=== PATIENT | female | born 1945 | race Caucasian/White ===

== ENCOUNTER 2019-08-30 15:21 | Inpatient (IN) ==
--- NOTE | 2019-08-30 15:56 | Emergency Department Note ---
History of Present Illness General Chief complaint: Leg Injury/Pain Stated complaint: POSS BLOOD CLOTS, REF BY Time Seen by Provider: 08/30/19 15:28 History of Present Illness Maximum Pain Intensity: 8 This is a 74-year-old female presenting to the emergency department for evaluation of left calf pain and left inner thigh pain for the past few weeks. The patient has a history of peripheral arterial disease with stenting. She previously was on Plavix, but is no longer taking this medication as of 4 weeks ago. The patient states that she is having pain in her left calf and left thigh when she walks her dogs. The patient has not had abnormal coldness or pain into the foot. No chest pain, chest tightness, or shortness of breath. She believes that she may have a history of blood clots in the leg. She rates her current discomfort an 8/10. She did contact her PCPs office, who referred her to the ER for evaluation. Home Medications Home Medications Medication Instructions Recorded Confirmed Type cyanocobalamin (vitamin B-12) 1,000 mcg PO WK 07/02/18 08/30/19 History [Vitamin B-12] ergocalciferol (vitamin D2) 50,000 unit PO MONTHLY 07/02/18 08/30/19 History [Vitamin D2] levothyroxine [Synthroid] 88 mcg PO QAM 07/02/18 08/30/19 History lisinopril 5 mg tablet 5 mg PO DAILY #90 tab 03/03/19 08/30/19 Rx diphenoxylate-atropine 2.5 1 tab PO QID PRN #30 tab 04/21/19 08/30/19 Rx mg-0.025 mg tablet duloxetine 60 mg capsule,delayed 60 mg PO QAM #30 cap 06/10/19 08/30/19 Rx release gabapentin 800 mg tablet 800 mg PO TID #90 tab 06/15/19 08/30/19 Rx pramipexole 0.25 mg tablet 0.25 mg PO PM #30 tab 06/15/19 08/30/19 Rx hydrocodone 5 mg-acetaminophen 325 1 tab PO TID PRN #180 tab 06/22/19 08/30/19 Rx mg tablet estradiol [Estrace] 1 gm PV 2XWK 07/14/19 08/30/19 History famotidine [Pepcid] 20 mg PO BID 08/30/19 08/30/19 History Allergies Allergy/AdvReac Type Severity Reaction Status Date / Time Penicillins Allergy Hives Verified 08/30/19 17:46 Sulfa (Sulfonamide Allergy Hives Verified 08/30/19 17:46 Antibiotics) Past Med/Surg History Medical History Collagenous colitis (Chronic) Depression (Chronic) Diverticular disease (Chronic) GERD (gastroesophageal reflux disease) (Chronic) History of anesthesia complications (Chronic) History of blood clots (Resolved) ? FOUND IN LEFT 5TH TOE, NO KNOWN ETIOLOGY History of hepatitis B (Resolved) SINCE CLEARED, CONTRACTED AFTER A BLOOD TRANSFUSION S/P ECTOPIC History of hepatitis C (Resolved) SINCE CURED, RECEIVED 6 MONTHS OF HARVONI. CONTRACTED HEP C FROM BLOOD TRANSFUSION AT [facility] AFTER A ECTOPIC . Hyperlipidemia (Chronic) can not tolerate statins Hypertension (Chronic) Hypothyroidism (Chronic) Osteoarthritis of knee (Chronic) PAD (peripheral artery disease) (Chronic) angioplasty / stenting of left superficial femoral artery 2019 Raynauds disease (Chronic) Restless leg syndrome (Chronic) TAKES MIRAPEX Vitamin D deficiency (Chronic) Surgical History H/O hemorrhoidectomy History of arthroscopy right knee History of cataract surgery bilateral History of hysterectomy History of laparoscopy HISTORY OF ECTOPIC X2 History of tonsillectomy History of tonsillectomy Social History Preferred Language: Khmer Communication Ability: Effective Human Resources Benefits Coordinator Required: No Beliefs That Will Affect Care: None marital status: Current Living Situation: Spouse Feels Safe at Home: Yes Smoking Status: Former smoker Tobacco Type: cigarettes ; Second Hand Exposure: No ; Hx Alcohol Use: Yes Alcohol type: wine Hx Substance Use: No Review of Systems A total of 10 systems reviewed and were otherwise negative Physical Exam Vital Signs Vital Signs - 24 hr 08/30/19 15:23 08/30/19 17:22 Temperature 36.3 C L Temperature Source Oral Pulse Rate 78 Pulse Rate [Finger] 75 Pulse Rhythm [Finger] Regular Pulse Strength [Finger] Normal Respiratory Rate 18 16 Respiratory Effort / Characteristics Non-Labored Non-Labored Spontaneous Respiratory Depth Normal Normal Respiratory Pattern Regular Blood Pressure 157/91 H Blood Pressure [Right Arm] 152/105 H Blood Pressure Mean 113 Blood Pressure Mean [Right Arm] 120 Blood Pressure Position [Right Arm] Lying Pulse Oximetry 97 99 Oxygen Delivery Method Room Air Room Air Sepsis Recent Fever Within 48 Hours No Sepsis Action Taken by Nursing No Action Required VITALS: Vitals are noted on the nurse's note and reviewed by myself. Vital signs stable. GENERAL: Well-developed, well-nourished, white female, who is in no acute distress and resting comfortably. Patient is cooperative with the examination. HEAD: Normocephalic atraumatic. HEART: Regular rate and rhythm LUNGS: Clear to auscultation bilaterally without wheezes, rales or rhonchi. No retractions or accessory muscle use. ABDOMEN: Positive normal bowel sounds x 4. Soft, nontender, without masses or organomegaly. MUSCULOSKELETAL: No muscle atrophy, erythema, or edema noted. Full range of motion in all extremities. Mild reproducible palpation in the left calf and medial thigh. No hip tenderness. NEURO: Patient was alert and oriented to person place and time. CN II through XII grossly intact SKIN: The skin of the left foot is warm and nontender. Cap refill is 3.5 to 4 seconds to the most distal toes. Very faint Dorsalis pedis pulse identified. Posterior tibial not identified. Course Administered Medications Hydrocodone Bitart/Acetaminophen (Hemlock 5/325) 1 tab PO TID PRN PRN Reason: Pain Stop: 09/13/19 20:40 Last Admin: 08/30/19 20:47 Dose: 1 tab Documented by: [id number] Duloxetine HCl (Cymbalta) 60 mg PO [facility] Stop: 09/30/19 08:59 Last Admin: 08/31/19 09:01 Dose: 60 mg Documented by: [id number] Famotidine (Pepcid) 20 mg PO BID [facility] Stop: 09/29/19 20:59 Last Admin: 08/31/19 09:01 Dose: 20 mg Documented by: [id number] Admin: 08/30/19 21:17 Dose: 20 mg Documented by: [id number] Gabapentin (Neurontin) 600 mg PO BID [facility]; Protocol Stop: 09/29/19 20:59 Last Admin: 08/31/19 09:02 Dose: 600 mg Documented by: [id number] Admin: 12/30/19 21:15 Dose: 600 mg Documented by: [id number] Heparin Sodium/Dextrose (Heparin Sodium/Dextrose) 25,000 units in 500 mls @ 19 mls/hr IV .Q24H [facility]; Protocol Stop: 09/29/19 17:59 Last Titration: 08/31/19 07:11 Dose: 950 units/hr, 19 mls/hr Documented by: [id number] Cosigned by: [id number] Titration: 08/31/19 02:09 Dose: 950 units/hr, 19 mls/hr Documented by: [id number] Cosigned by: [id number] Titration: 08/30/19 22:58 Dose: 950 units/hr, 19 mls/hr Documented by: [id number] Cosigned by: [id number] Admin: 08/30/19 18:11 Dose: 950 units/hr, 19 mls/hr Documented by: [id number] Cosigned by: [id number] Levothyroxine Sodium (Synthroid) 88 mcg PO DAILYBB [facility] Stop: 09/30/19 06:29 Last Admin: 08/31/19 05:30 Dose: 88 mcg Documented by: [id number] Lisinopril (Zestril) 5 mg PO DAILY [facility] Stop: 09/30/19 08:59 Last Admin: 08/31/19 09:01 Dose: 5 mg Documented by: [id number] Miscellaneous (Order Awaiting Action) 1 ea N/A QS [facility] Stop: 09/30/19 00:00 Last Admin: 08/31/19 09:01 Dose: Not Given Documented by: [id number] Admin: 08/31/19 01:19 Dose: Not Given Documented by: [id number] Pramipexole Dihydrochloride (Mirapex) 0.25 mg PO PM [facility] Stop: 09/29/19 20:59 Last Admin: 08/30/19 21:16 Dose: 0.25 mg Documented by: [id number] Zolpidem Tartrate (Ambien) 5 mg PO HS PRN PRN Reason: Sleep Stop: 09/29/19 20:26 Last Admin: 08/30/19 22:33 Dose: 5 mg Documented by: [id number] Discontinued Medications Heparin Sodium (Porcine) (Heparin Iv Bolus) Confirm Administered Dose 10,000 units .ROUTE .STK-MED ONE Stop: 08/30/19 18:07 Last Admin: 08/30/19 18:12 Dose: 4,000 units Documented by: [id number] Cosigned by: [id number] Heparin Sodium/Dextrose () 1 ea IV NOW STA; Protocol Stop: 08/30/19 18:00 Last Admin: 08/30/19 18:12 Dose: Not Given Documented by: [id number] Critical Care Time I have personally spent greater than 60 minutes of critical care time in the direct management of this patient. This includes bedside care, interpretation of diagnostic studies, and testing, discussion with consultants, patient, and family members, and other required patient management activities. This 60 minutes is in excess of all separately billable procedures. Medical Decision Making Differential Diagnosis Differential diagnosis: tiologies such as DVT, vascular ischemia, radiculopathy, fracture, hematoma/contusion, myositis, abscess, septic arthritis cellulitis, joint effusion, trauma, lymphedema, idiopathic, CHF, as well as others were e ntertained. Laboratory Data Result diagrams: 08/31/19 06:04 08/31/19 06:04 Lab Results 08/30/19 08/30/19 08/30/19 Range/Units 17:05 17:05 17:05 WBC 9.06 (4.8-10.8) K/uL RBC 4.85 (4.2-5.4) M/uL Hgb 15.9 (12.0-16.0) g/dL Hct 45.9 (37-47) % MCV 94.6 (80-100) fL MCH 32.8 (25-34) pg MCHC 34.6 (32-36) g/dL RDW Std Deviation 46.5 H (36.4-46.3) fL RDW Coeff of Kyle 13.5 (11.5-14.5) % Plt Count 380 (130-400) K/uL MPV 9.7 (7.4-10.4) fL Immature Gran % (Auto) 0.3 % Neut % (Auto) 61.9 % Lymph % (Auto) 18.7 % Real % (Auto) 12.0 % Eos % (Auto) 6.5 % Baso % (Auto) 0.6 % Immature Gran # (Auto) 0.03 H (0.00-0.02) K/uL Neut # (Auto) 5.61 (1.4-6.5) K/uL Lymph # (Auto) 1.69 (1.2-3.4) K/uL Real # (Auto) 1.09 H (0.11-0.59) K/uL Eos # (Auto) 0.59 H (0-0.5) K/uL Baso # (Auto) 0.05 (0-0.2) K/uL PT 11.0 (9.0-12.0) Seconds INR 1.1 (0.9-1.1) APTT 29.6 (21.0-31.0) Seconds PTT Ratio 1.1 Sodium 138 (136-145) mmol/L Potassium 3.7 (3.5-5.1) mmol/L Chloride 106 (98-107) mmol/L Carbon Dioxide 23 (21-32) mmol/L Anion Gap 9.0 (3-11) BUN 13 (7-18) mg/dl Creatinine 1.11 (0.6-1.2) mg/dl Est Cr Clr Drug Dosing 34.1 ml/min Est GFR ( Amer) 55.9 Est GFR (Non-Af Amer) 48.2 BUN/Creatinine Ratio 11.4 (10-20) Glucose 83 (70-99) mg/dl Calcium 9.9 (8.5-10.1) mg/dl Total Bilirubin 0.4 (0.2-1) mg/dl AST 17 (15-37) U/L ALT 15 (12-78) U/L Alkaline Phosphatase 80 (45-117) U/L Troponin I < 0.015 (0-0.045) ng/ml Total Protein 7.3 (6.4-8.2) gm/dl Albumin 4.0 (3.4-5.0) gm/dl Globulin 3.3 (2.5-4.0) gm/dl Albumin/Globulin Ratio 1.2 (0.9-2) Imaging Data Radiologist's Impression: US venous doppler LE LT HISTORY: 74 years-old Female left leg calf and mid thigh pain acute pain and swelling of the left lower extremity COMPARISON: Duplex venous Doppler study 07/14/2019 TECHNIQUE: Multiple real-time sonographic images of the left lower extremity deep venous structures were obtained assessing grayscale appearance, color and spectral flow FINDINGS: Normal flow, compressibility, phasicity and augmentation of the left lower extremity deep venous structures. Stent of the superficial femoral artery is noted with occlusion of the entire imaged superficial femoral artery. IMPRESSION: 1. No sonographic evidence of deep venous thrombosis. 2. Incidental note is made of an occluded stent of the left superficial femoral artery. MDM Narrative Physical exam and history were performed. Nursing notes, EMR, and Medication List were personally reviewed. Patient appears to have increasing pain in her left leg. Her symptoms seem to be worse with certain movement such as walking her dog. She does have a history of peripheral arterial disease and stent in this leg. On exam her foot is warm and well pulses are weak do seem to be intact. Her capillary refill is slow in the left foot, but is existent. She does not appear with acute ischemic limb on exam. Because of her symptoms ultrasound was performed. Ultrasound was reviewed by myself and radiology, and does not show evidence of DVT. There is occlusion of her superficial femoral artery stent. This certainly could be contributing to her symptoms. The case was discussed with my attending physician, Dr. Rodriguez, who also independently evaluated the patient. At this time we do not have access to interventional cardiology or vascular surgery, and the case was discussed with [facility] in [place], Dr Baltazar, who agrees the patient does not need emergent revascularization based on her symptoms. She is recommended for medical treatment. I did discuss this with the patient, and while I was on the phone with [facility], a personal friend of the patient did arrive. This gentleman is a physician with the [facility] service and is personal friend of Dr. Oliveira, local vascular specialist. Dr. Oliveira is not officially electrical electronics engineers today, however he was kind enough to speak with us through the mutual friend. Dr. Oliveira will be back in town in a few days, and also agrees with medical treatment, and is more than happy to follow upon his return home. Overall the patient does not seem well for discharge home. Her symptoms appear most consistent with claudication, likely from an occluded stent. Her symptoms have been ongoing for at least 5 days, and while her leg does not appear acutely ischemic, it certainly could become so without appropriate intervention. The patient was started on heparin drip here in the department. The case was discussed with the on-call hospitalist team, who agreed to evaluate the patient here in the ER. Please see their dictation for further patient course, plan, and disposition. The chart was completed utilizing Dragon Speech Voice Recognition Software. Grammatical errors, random word insertions, pronoun errors, and incomplete sentences are an occasional consequence of this system due to software limitations, ambient noise, and hardware issues. Any formal questions or concer ns about the content, text, or information contained within the body of this dictation should be directly addressed to the provider for clarification. . Impression & Plan Occlusion of stent of peripheral artery, Left leg pain Discharge Plan Visit Data *Final* Discharge Date/Time: 08/30/19 20:07 Chief Complaint: Leg Injury/Pain Stated Complaint: POSS BLOOD CLOTS, REF BY DR ED Provider: Jaquan Rodriguez ED Midlevel Provider: Olaf Verduzco Discharge Problem: Occlusion of stent of peripheral artery, Left leg pain Patient Disposition: Admitted As Inpatient Discharge Instructions Interventions: ED Discharge Assessment Last Done: 08/30/19 20:07 Discharge Problem: Occlusion of stent of peripheral artery Qualifiers: Encounter type: initial encounter Qualified Code(s): T82.856A - Stenosis of peripheral vascular stent, initial encounter
--- NOTE | 2019-08-30 16:14 | Ultrasound Report ---
US venous doppler LE LT HISTORY: 74 years-old Female left leg calf and mid thigh pain acute pain and swelling of the left lo wer extremity COMPARISON: Duplex venous Doppler study 07/14/2019 TECHNIQUE: Multiple real-time sonographic images of the left lower extremity deep venous structures w ere obtained assessing grayscale appearance, color and spectral flow FINDINGS: Normal flow, compressibility, phasicity and augmentation of the left lower extremity deep venous stru ctures. Stent of the superficial femoral artery is noted with occlusion of the entire imaged superficial femo ral artery. IMPRESSION: 1. No sonographic evidence of deep venous thrombosis. 2. Incidental note is made of an occluded stent of the left superficial femoral artery. ACT 112: Negative or not required by law. The above report was generated using voice recognition software. It may contain grammatical, syntax o r spelling errors. Electronically signed by: Mayank Barrera M.D. 08/30/2019 4:13 PM
--- NOTE | 2019-08-30 16:50 | Emergency Department Note ---
ED Visit Note This Patient was discussed with the physician miller head assistant wet process, Olaf Verduzco PA-C. The pertinent historical and physical exam findings were confirmed. I agree with the studies ordered and with the interpretations of these studies. I agree with the disposition and care plan. .
[2019-08-30 17:24] LABS: Basophils # (auto) 0.05 K/uL (0-0.2); Basophils % (auto) 0.6 %; Eosinophils # (auto) 0.59 K/uL (0-0.5); Eosinophils % (auto) 6.5 %; Hematocrit (blood only) 45.9 % (37-47); Hemoglobin 15.9 g/dL (12.0-16.0); Immature Granulocytes # (auto) 0.03 K/uL (0.00-0.02); Immature Granulocytes % (auto) 0.3 %; Lymphocytes # (auto) 1.69 K/uL (1.2-3.4); Lymphocytes % (auto) 18.7 %; Mean Corpuscular Hemoglobin 32.8 pg (25-34); Mean Corpuscular Hgb Conc 34.6 g/dL (32-36); Mean Corpuscular Volume 94.6 fL (80-100); Mean Platelet Volume 9.7 fL (7.4-10.4); Monocytes # (auto) 1.09 K/uL (0.11-0.59); Neutrophils # (auto) 5.61 K/uL (1.4-6.5); Neutrophils % (auto) 61.9 %; Platelet Count 380 K/uL (130-400); RDW Coefficient of Variation 13.5 % (11.5-14.5); RDW Standard Deviation 46.5 fL (36.4-46.3); Red Blood Count 4.85 M/uL (4.2-5.4); White Blood Count 9.06 K/uL (4.8-10.8)
[2019-08-30 17:35] LABS: INR 1.1 (0.9-1.1); Partial Thromboplastin Ratio 1.1; Partial Thromboplastin Time 29.6 Seconds (21.0-31.0)
[2019-08-30 17:42] LABS: Alanine Aminotransferase 15 U/L (12-78); Aspartate Aminotransferase 17 U/L (15-37); BUN Creatinine Ratio 11.4 (10-20); Blood Urea Nitrogen 13 mg/dl (7-18); Calcium 9.9 mg/dl (8.5-10.1); Carbon Dioxide 23 mmol/L (21-32); Chloride 106 mmol/L (98-107); Creatinine Clr Calc Pharmacy 34.1 ml/min; Est GFR (African American) 55.9; Est GFR (Non-African American) 48.2; Glucose 83 mg/dl (70-99); Potassium 3.7 mmol/L (3.5-5.1); Sodium 138 mmol/L (136-145)
[2019-08-30 17:47] LABS: Albumin Globulin Ratio 1.2 (0.9-2); Alkaline Phosphatase 80 U/L (45-117); Bilirubin,Total 0.4 mg/dl (0.2-1); Globulin 3.3 gm/dl (2.5-4.0); Total Protein 7.3 gm/dl (6.4-8.2); Troponin I < 0.015 ng/ml (0-0.045)
[2019-08-30] MEDS ORDERED: HEPARIN SOD (PORCINE) 1000 UNIT/ML 10 ML VIAL ONE (18:06)
[2019-08-30] MEDS: HEPARIN SODIUM/DEXTROSE 25,000 UNITS/500 ML BAG IV SCH (18:11)
--- NOTE | 2019-08-30 19:04 | History & Physical Report ---
Date of Service August 30, 2019 Assessment & Plan (1) PAD (peripheral artery disease): Patient with peripheral arterial disease status post stent placement in the SFA 09/09/2018, previously on Plavix which was discontinued earlier this month. She presents today with stent occlusion. Mild pain in left groin. Left lower extremity is warm with weakly palpable pulses and adequate capillary refill. Admit to medical floor Check pulses, perfusion, warmth every 4 hours. No need for urgent intervention at this time -Check arterial Doppler Heparin drip. Consider initiating rivaroxaban tomorrow. Patient can most likely be managed medically with outpatient referral to Dr. Maynard or Dr. Oliveira for thrombectomy Hydrocodone as needed for pain Present on Admission?: Yes (2) Collagenous colitis: Patient with history of collagenous colitis as well as diverticular disease. She is scheduled to have partial colectomy performed later this month. Symptoms presently well managed Continue diphenoxylateatropine as needed Present on Admission?: Yes (3) Depression: Patient appears anxious on exam. Otherwise, stable mood and affect Continue duloxetine 60 mg p.o. every morning Present on Admission?: Yes (4) Hypothyroidism: Chronic. TSH = 1.43 on 06/22/2019 Continue Synthroid 88 mcg p.o. daily Present on Admission?: Yes (5) Vitamin D deficiency: Chronic. Patient may resume outpatient vitamin D supplementation on discharge Present on Admission?: Yes (6) Hyperlipidemia: Chronic. Stable. Patient is statin intolerant Continue to monitor Present on Admission?: Yes (7) Hypertension: Blood pressure mildly elevated at 152/105. Pain control as above Continue Lisinopril 5 mg p.o. daily Continue to monitor Present on Admission?: Yes (8) Restless leg syndrome: Chronic. Stable. Continue Mirapex 0.25 mg p.o. every afternoon Present on Admission?: Yes (9) GERD (gastroesophageal reflux disease): Chronic. Stable. Continue Pepcid 20 mg p.o. twice daily F/E/N -Hep-Lock. Monitor electrolytes and replete as needed. Heart healthy diet as tolerated ProphylaxisHeparin drip as above Codefull per discussion with patient Dispositionadmit to medical floor Present on Admission?: Yes History of Present Illness Chief Complaint: Left lower extremity pain Primary Care Provider: MD Sadia Gardner is a pleasant 74yo C female with history of HTN/HLP, PAD. Patient s/p LLE angiogram with mechanical atherectomy and percutaneous transluminal angioplasty and stenting of the left SFA with two overlapping Tigris stents performed by Dr. Maynard on 09/09/2018. She was instructed to take Plavix for approximately 1 year. Patient recently discontinued her Plavix after checking with Dr. Maynard' office. She reports cramping and pain in her left calf occurring with ambulation and relieved by rest ongoing for at least the last month. She had a venous Doppler study performed of the left lower extremity on 07/14/2018 which showed no evidence of DVT. Patient's left lower extremity pain became more frequent and more severe. Approximately 5 days ago she developed severe left groin pain with both movement and at rest. Her pain is ongoing, mild in severity at present. She denies additional complaints such as fever/chills/chest pain/palpitations/shortness of breath/nausea/vomiting/abdominal pain. ER course: Heparin drip Allergies Allergy/AdvReac Type Severity Reaction Status Date / Time Penicillins Allergy Hives Verified 08/30/19 17:46 Sulfa (Sulfonamide Allergy Hives Verified 08/30/19 17:46 Antibiotics) Home Medications Home Medications Medication Instructions Recorded Confirmed Type cyanocobalamin (vitamin B-12) 1,000 mcg PO WK 07/02/18 08/30/19 History [Vitamin B-12] ergocalciferol (vitamin D2) 50,000 unit PO MONTHLY 07/02/18 08/30/19 History [Vitamin D2] levothyroxine [Synthroid] 88 mcg PO QAM 07/02/18 08/30/19 History lisinopril 5 mg tablet 5 mg PO DAILY #90 tab 03/03/19 08/30/19 Rx diphenoxylate-atropine 2.5 1 tab PO QID PRN #30 tab 04/21/19 08/30/19 Rx mg-0.025 mg tablet duloxetine 60 mg capsule,delayed 60 mg PO QAM #30 cap 06/10/19 08/30/19 Rx release gabapentin 800 mg tablet 800 mg PO TID #90 tab 06/15/19 08/30/19 Rx pramipexole 0.25 mg tablet 0.25 mg PO PM #30 tab 06/15/19 08/30/19 Rx hydrocodone 5 mg-acetaminophen 325 1 tab PO TID PRN #180 tab 06/22/19 08/30/19 Rx mg tablet estradiol [Estrace] 1 gm PV 2XWK 07/14/19 08/30/19 History famotidine [Pepcid] 20 mg PO BID 08/30/19 08/30/19 History Past Med/Surg History Medical History Collagenous colitis (Chronic) Depression (Chronic) Diverticular disease (Chronic) GERD (gastroesophageal reflux disease) (Chronic) History of anesthesia complications (Chronic) History of blood clots (Resolved) ? FOUND IN LEFT 5TH TOE, NO KNOWN ETIOLOGY History of hepatitis B (Resolved) SINCE CLEARED, CONTRACTED AFTER A BLOOD TRANSFUSION S/P ECTOPIC History of hepatitis C (Resolved) SINCE CURED, RECEIVED 6 MONTHS OF HARVONI. CONTRACTED HEP C FROM BLOOD TRANSFUSION AT [facility] AFTER A ECTOPIC . Hyperlipidemia (Chronic) can not tolerate statins Hypertension (Chronic) Hypothyroidism (Chronic) Osteoarthritis of knee (Chronic) PAD (peripheral artery disease) (Chronic) angioplasty / stenting of left superficial femoral artery 2019 Raynauds disease (Chronic) Restless leg syndrome (Chronic) TAKES MIRAPEX Vitamin D deficiency (Chronic) Surgical History H/O hemorrhoidectomy History of arthroscopy right knee History of cataract surgery bilateral History of hysterectomy History of laparoscopy HISTORY OF ECTOPIC X2 History of tonsillectomy History of tonsillectomy Social History Preferred Language: Nigerian Communication Ability: Effective Leasing Representative Required: No Beliefs That Will Affect Care: None marital status: Current Living Situation: Spouse Other Information That Helps Us Care for You: No Feels Safe at Home: Yes Safety Concerns: Feels Safe At This Time Smoking Status: Former smoker Tobacco Type: cigarettes ; Second Hand Exposure: No ; Hx Alcohol Use: Yes Alcohol type: wine Hx Substance Use: No Review of Systems Review of Systems: All systems reviewed & are unremarkable except as noted in HPI & below Physical Exam Physical Exam: General: patient resting comfortably, NAD, non-toxic in appearance, AA&O x 4, anxious in appearance Skin: warm, dry, intact, no rashes or lesions HEENT: NC/AT, PERRL, EOMI, anicteric sclera, conjunctiva without injection, external ear normal to inspection and nontender, nares patent, moist mucus membranes, dentition intact, no oropharyngeal lesions, neck supple, trachea midline, no LAD, no thyromegaly, no JVD Heart: +S1/S2, regular, no m/r/g Lungs: equal air entry bilaterally, no rales/rhonchi/wheezes Abd: +BS, soft, NT/ND, no masses/organomegaly/ascites Ext: warm, 2+ pulses in right lower extremity and bilateral upper extremities, left lower extremity is warm, 1+ dorsalis pedis and posterior tibial pulse, nontender to palpation, no clubbing/cyanosis/edema, + pain with palpation of left SFA Neuro: nonfocal, patient AA&O x 4, speech intact, no facial droop, moving all extremities on command with equal strength 5/5 Results & Data Vital Signs (Past 12 Hours) Vital Signs Temp Pulse Pulse Resp BP BP Pulse Ox 08/30/19 17:22 75 16 152/105 H 99 08/30/19 15:23 36.3 C L 78 18 157/91 H 97 Laboratory Results Lab Results 08/30/19 08/30/19 08/30/19 Range/Units 17:05 17:05 17:05 WBC 9.06 (4.8-10.8) K/uL RBC 4.85 (4.2-5.4) M/uL Hgb 15.9 (12.0-16.0) g/dL Hct 45.9 (37-47) % MCV 94.6 (80-100) fL MCH 32.8 (25-34) pg MCHC 34.6 (32-36) g/dL RDW Std Deviation 46.5 H (36.4-46.3) fL RDW Coeff of Kyle 13.5 (11.5-14.5) % Plt Count 380 (130-400) K/uL MPV 9.7 (7.4-10.4) fL Immature Gran % (Auto) 0.3 % Neut % (Auto) 61.9 % Lymph % (Auto) 18.7 % [place] % (Auto) 12.0 % Eos % (Auto) 6.5 % Baso % (Auto) 0.6 % Immature Gran # (Auto) 0.03 H (0.00-0.02) K/uL Neut # (Auto) 5.61 (1.4-6.5) K/uL Lymph # (Auto) 1.69 (1.2-3.4) K/uL [place] # (Auto) 1.09 H (0.11-0.59) K/uL Eos # (Auto) 0.59 H (0-0.5) K/uL Baso # (Auto) 0.05 (0-0.2) K/uL PT 11.0 (9.0-12.0) Seconds INR 1.1 (0.9-1.1) APTT 29.6 (21.0-31.0) Seconds PTT Ratio 1.1 Sodium 138 (136-145) mmol/L Potassium 3.7 (3.5-5.1) mmol/L Chloride 106 (98-107) mmol/L Carbon Dioxide 23 (21-32) mmol/L Anion Gap 9.0 (3-11) BUN 13 (7-18) mg/dl Creatinine 1.11 (0.6-1.2) mg/dl Est Cr Clr Drug Dosing 34.1 ml/min Est GFR ( Amer) 55.9 Est GFR (Non-Af Amer) 48.2 BUN/Creatinine Ratio 11.4 (10-20) Glucose 83 (70-99) mg/dl Calcium 9.9 (8.5-10.1) mg/dl Total Bilirubin 0.4 (0.2-1) mg/dl AST 17 (15-37) U/L ALT 15 (12-78) U/L Alkaline Phosphatase 80 (45-117) U/L Troponin I < 0.015 (0-0.045) ng/ml Total Protein 7.3 (6.4-8.2) gm/dl Albumin 4.0 (3.4-5.0) gm/dl Globulin 3.3 (2.5-4.0) gm/dl Albumin/Globulin Ratio 1.2 (0.9-2) Diagnostic Findings US venous doppler LE LT HISTORY: 74 years-old Female left leg calf and mid thigh pain acute pain and swelling of the left lower extremity COMPARISON: Duplex venous Doppler study 07/14/2019 TECHNIQUE: Multiple real-time sonographic images of the left lower extremity deep venous structures were obtained assessing grayscale appearance, color and spectral flow FINDINGS: Normal flow, compressibility, phasicity and augmentation of the left lower extremity deep venous structures. Stent of the superficial femoral artery is noted with occlusion of the entire imaged superficial femoral artery. IMPRESSION: 1. No sonographic evidence of deep venous thrombosis. 2. Incidental note is made of an occluded stent of the left superficial femoral artery. ACT 112: Negative or not required by law. The above report was generated using voice recognition software. It may contain grammatical, syntax or spelling errors. Electronically signed by: Mayank Barrera M.D. 08/30/2019 4:13 PM Dictated: 08/30/191609 Transcribed: 08/30/191609 Operation Date: 09/09/18 10:20 Pre-Op Diagnosis: Peripheral Artery Disease Post-Op Diagnosis: Peripheral Artery Disease Procedure Operation Date: 09/09/18 10:20 Actual Procedures p Left Lower Extremity Angiogram, Percutaneous Transluminal Angioplasty and Stenting of Left Superficial Femoral Artery, Mechanical Atherectomy Left Superficial Femoral Artery, Moderate Concious Sedation 1123 to 1316.(Right) - Travis Maynard MD Surgeon Blaine Maynard MD Rn Delivery Lexi Estimated Blood Loss 20 Findings Consistent with Post-Op Diagnosis Left lower extremity: Aorta, iliacs, common femoral artery largely free of disease. Long SFA occlusion beginning at ostium with reconstitution from profunda collaterals in the distal segment. ANESTHESIOLOGIST PHYSICIAN widely patent and dominant runoff vessel to the foot. STEPHEN occluded proximally with distal reconstitution. Peroneal occluded. Specimens None Drains None Complications none Disposition Disposition: Recovery Room Description of Procedure Right common femoral access obtained via ultrasound guidance, short 5Fr sheath placed LLE angiogram performed with RIM catheter Up an over with RIM catheter and glide advantage wire 7 Fr 45 cm destination sheath placed to common femoral artery Short stump at ostial SFA crossed with a glide advantage wire and angled glide catheter. Distal intraluminal position confirmed via injection through glide catheter in popliteal artery. 0.14 bare wire exchanged and navigated into ANESTHESIOLOGIST PHYSICIAN Distal protection with Rojelio 6 Filter SFA dilated with 4.0 balloon SFA treated with [employer] atherectomy device (XC 2.1/3.0), 1 run by down, one run lights up. SFA dilated with 6.0 balloon prolonged inflations Ostium of SFA stented with 6.0 by 100 mm Tigris stent 6.0 x 16 mm Tigris stent placed to mid SFA overlapping distal aspect of initial stent Stents postdilated with 6.0 balloon Post procedure good angiographic result, no evidence of dissection and good 3 vessel run-off. Contrast used: 140 Access closure:StarClose Summary: 1. Left lower extremity--long SFA occlusion with reconstitution in the distal SFA and single-vessel runoff to the foot via widely patent ANESTHESIOLOGIST PHYSICIAN. 2. Successful ANESTHESIOLOGIST PHYSICIAN/atherectomy of SFA occlusion with 2 overlapping Tigris stents placed from ostium to mid segment. Recommendations: Continue DAPT with ASA/Clopidogrel for at least next 3 months. Will consider long-term rivaroxaban Continue ASCVD risk factor modification Follow-up ultrasound in 1 month. I attest to the content of the Intraoperative Record and any orders documented therein. Any exceptions are noted below. Signed By:<Electronically signed by Travis Maynard MD>09/09/18 1731 Created: 09/09/18 1716 ECG Additional Comments: The study reveals NSR at 71bpm, normal axis, no acute ischemic changes Code Status & VTE Plan Code Status FULL VTE Prophylaxis Plan VTE Prophylaxis will be ordered: Yes PG Care Time/CCT Total # of Minutes Spent Total Time Spent with Patient: Total time spent is greater than 50% in coordination of care (as documented) at patient's floor/unit and/or counseling patient: (1) Depression Depression Type: major depressive disorder Major depression recurrence: recurrent Active/Remission status: remission status unspecified Qualified Code(s): F33.9 - Major depressive disorder, recurrent, unspecified (2) Hypothyroidism Hypothyroidism type: unspecified Qualified Code(s): E03.9 - Hypothyroidism, unspecified (3) Hyperlipidemia Hyperlipidemia type: unspecified Qualified Code(s): E78.5 - Hyperlipidemia, unspecified (4) Hypertension Hypertension type: essential hypertension Qualified Code(s): I10 - Essential (primary) hypertension (5) GERD (gastroesophageal reflux disease) Esophagitis presence: esophagitis presence not specified Qualified Code(s): K21.9 - Gastro-esophageal reflux disease without esophagitis
[2019-08-30] MEDS ORDERED: DIPHENOXYLATE/ATROPINE 2.5/0.025MG TAB PO PRN (20:27)
[2019-08-30] MEDS: HYDROCODONE/ACETAMOPHEN 5/325MG TAB PO PRN (20:47)
[2019-08-30] MEDS: GABAPENTIN 600 MG TAB PO SCH (21:15)
[2019-08-30] MEDS: PRAMIPEXOLE DIHYDROCHLO 0.25 MG TAB PO SCH (21:16)
[2019-08-30] MEDS: FAMOTIDINE 20 MG TAB PO SCH (21:17)
[2019-08-30] MEDS: ZOLPIDEM TARTRATE 5 MG TAB PO PRN (22:33)
[2019-08-31 00:58] LABS: Partial Thromboplastin Ratio 2.4
[2019-08-31 01:00] LABS: Partial Thromboplastin Time 65.2 Seconds (21.0-31.0)
[2019-08-31] MEDS: LEVOTHYROXINE SODIUM 88 MCG TABLET PO SCH (05:30)
[2019-08-31 06:17] LABS: Basophils # (auto) 0.04 K/uL (0-0.2); Basophils % (auto) 0.4 %; Eosinophils # (auto) 0.76 K/uL (0-0.5); Eosinophils % (auto) 7.5 %; Hematocrit (blood only) 43.3 % (37-47); Hemoglobin 14.5 g/dL (12.0-16.0); Immature Granulocytes # (auto) 0.04 K/uL (0.00-0.02); Immature Granulocytes % (auto) 0.4 %; Lymphocytes # (auto) 1.59 K/uL (1.2-3.4); Lymphocytes % (auto) 15.8 %; Mean Corpuscular Hemoglobin 32.2 pg (25-34); Mean Corpuscular Hgb Conc 33.5 g/dL (32-36); Mean Platelet Volume 9.7 fL (7.4-10.4); Monocytes # (auto) 0.96 K/uL (0.11-0.59); Monocytes % (auto) 9.5 %; Neutrophils # (auto) 6.68 K/uL (1.4-6.5); Neutrophils % (auto) 66.4 %; Platelet Count 311 K/uL (130-400); RDW Coefficient of Variation 13.7 % (11.5-14.5); RDW Standard Deviation 48.3 fL (36.4-46.3); Red Blood Count 4.51 M/uL (4.2-5.4); White Blood Count 10.07 K/uL (4.8-10.8)
[2019-08-31 06:33] LABS: Partial Thromboplastin Ratio 2.3
[2019-08-31 06:55] LABS: BUN Creatinine Ratio 13.3 (10-20); Creatinine Clr Calc Pharmacy 37.1 ml/min; Est GFR (African American) 61.9; Est GFR (Non-African American) 53.4; Potassium 3.9 mmol/L (3.5-5.1)
[2019-08-31 06:56] LABS: Partial Thromboplastin Time 62.6 Seconds (21.0-31.0)
[2019-08-31] MEDS: DULOXETINE HCL 60 MG CAP PO SCH (09:01)
[2019-08-31] MEDS: lisinopriL 5 MG TAB PO SCH (09:01)
[2019-08-31] MEDS: FAMOTIDINE 20 MG TAB PO SCH ×2 (09:01→20:05)
[2019-08-31] MEDS: GABAPENTIN 600 MG TAB PO SCH ×2 (09:02→20:04)
--- NOTE | 2019-08-31 16:31 | Hospitalist Progress Note ---
Date of Service August 31, 2019 Assessment & Plan (1) PAD (peripheral artery disease): * Patient with peripheral arterial disease status post stent placement in the SFA 09/09/2018, previously on Plavix which was discontinued earlier this month. She presented on 08/30 with stent occlusion. Mild pain in left groin. Left lower extremity is warm with weakly palpable pulses, but adequate capillary refill. * Q4 pulse checks * US Venous Doppler with occluded stent of LEFT SFA * Continue heparin gtt -- will hold off on switching to revaroxaban for now, for possible surgical intervention * Consult Dr. Maynard in AM -- patient known to him, stent placed Sep 2018 -- appreciate input * Likely will need continued plavix in addition to NOAC at discharge (2) Collagenous colitis: * Stable * Patient with history of collagenous colitis as well as diverticular disease. She is scheduled to have partial colectomy performed later this month with Dr. Nick. * Continue diphenoxylateatropine as needed (3) Depression: * Increased anxiety/depression regarding health ever since move to [place] from [place]. Denies any worsening of symptoms currently. States she has one episode of clinically relevant depression in the past * Continue home duloxetine 60mg (4) Hypothyroidism: * Chronic. Stable. TSH = 1.43 on 06/22/2019 * Continue Synthroid 88 mcg p.o. daily (5) Vitamin D deficiency: * Chronic. * Patient may resume outpatient vitamin D supplementation on discharge (6) Hyperlipidemia: * Chronic. Stable. Patient is statin intolerant (7) Hypertension: * Blood pressures stable, 115/66 currently. Mildly elevated at 152/105 on admission -- likely component of pain * Continue lisinopril 5mg * Continue to monitor (8) Restless leg syndrome: * Chronic. Stable. * Continue Mirapex 0.25 mg p.o. every afternoon (9) GERD (gastroesophageal reflux disease): * Chronic. Stable. * Continue Pepcid 20 mg p.o. twice daily Dispo: Dr. Maynard consult in AM -- inpatient vs outpatient intervention Supervising Physician Co-Signing Physician Notes Attending Attestation - Chart reviewed in detail, care plan d/w ARNOLDO Cornell. I agree w/ the flores components of her documentation. Patient with occluded left-sided femoral stent seen on venous doppler of left leg. Presented with left leg pains thought due to PAD. Placed on heparin infusion. Pain improved, pulses present on examination by Ms Cornell's report. Consider dedicated arterial duplex studies. Agree w/ consult with Dr Maynard. Ultimately if pain is not felt to be vascular in origin consider lumbar spine MRI, x-rays of left leg, etc. Last Quach MD Subjective Left leg/calf pain improved today. Patient states they were unable to find a pulse when she arrived on admission, and her pain was severe and worsening ever since she discontinued her plavix on August 05. She states she had a stent pl aced by Dr. Maynard September 2018 and had completed her one year of plavix earlier this month. She states it originally started in her toe/calf and over the past five days she had worsening pain in her left groin. She was told initially she might have to be transferred due to lack of vascular capabilities at this facilty, but is glad she stayed and her pain has improved. She states she is to have a partial colectomy later in September for her collagenous colitis by Dr. Nick. She denies recent travel, fever, chills, chest pain, palpitations, shortness of breath, abdominal pain, n/v/d at this time. Review of Systems Review of Systems: All systems reviewed & are unremarkable except as noted in HPI & below Physical Exam Constitutional: WD/WN, vitals as above no acute distress Eyes: + anicteric sclerae and PERRL Neck: trachea midline, no thyromegaly Respiratory: normal respiratory effort, lungs clear to auscultation Cardiovascular: RRR, no murmur, no edema 2+ pulses RLE 1+ dp/pt pulse Nontender to palpation Gastrointestinal (Abdomen): normal bowel sounds, soft, nontender, no hepatosplenomegaly Musculoskeletal: no cyanosis or clubbing, extremities motor strength 5/5 Skin: no rashes, warm and dry Neurologic: PERRL, EOMI, accommodation nl, no face palsy, no dysarthria Psychiatric: A+Ox3, euthymic affect Results & Data Vital Signs (Past 12 Hours) Vital Signs Temp Pulse Resp BP Pulse Ox 08/31/19 14:55 36.8 C 88 18 115/66 92 08/31/19 07:05 37.1 C 87 14 118/69 92 Laboratory Results 08/31/19 08/31/19 08/31/19 Range/Units 06:04 06:04 06:04 WBC (4.8-10.8) K/uL RBC (4.2-5.4) M/uL Hgb (12.0-16.0) g/dL Hct (37-47) % MCV (80-100) fL MCH (25-34) pg MCHC (32-36) g/dL RDW Std Deviation (36.4-46.3) fL RDW Coeff of Kyle (11.5-14.5) % Plt Count (130-400) K/uL MPV (7.4-10.4) fL Immature Gran % (Auto) % Neut % (Auto) % Lymph % (Auto) % [place] % (Auto) % Eos % (Auto) % Baso % (Auto) % Immature Gran # (Auto) (0.00-0.02) K/uL Neut # (Auto) (1.4-6.5) K/uL Lymph # (Auto) (1.2-3.4) K/uL [place] # (Auto) (0.11-0.59) K/uL Eos # (Auto) (0-0.5) K/uL Baso # (Auto) (0-0.2) K/uL PT (9.0-12.0) Seconds INR (0.9-1.1) APTT 62.6 H* (21.0-31.0) Seconds PTT Ratio 2.3 Sodium 138 (136-145) mmol/L Potassium 3.9 (3.5-5.1) mmol/L Chloride 108 H (98-107) mmol/L Carbon Dioxide 25 (21-32) mmol/L Anion Gap 5.0 (3-11) BUN 14 (7-18) mg/dl Creatinine 1.02 (0.6-1.2) mg/dl Est Cr Clr Drug Dosing 37.1 ml/min Est GFR ( Amer) 61.9 Est GFR (Non-Af Amer) 53.4 BUN/Creatinine Ratio 13.3 (10-20) Glucose 96 (70-99) mg/dl Lactate 0.9 (0.4-2.0) mmol/L Calcium 9.0 (8.5-10.1) mg/dl Total Bilirubin (0.2-1) mg/dl AST (15-37) U/L ALT (12-78) U/L Alkaline Phosphatase (45-117) U/L Troponin I (0-0.045) ng/ml Total Protein (6.4-8.2) gm/dl Albumin (3.4-5.0) gm/dl Globulin (2.5-4.0) gm/dl Albumin/Globulin Ratio (0.9-2) 08/31/19 08/31/19 08/30/19 Range/Units 06:04 00:22 17:05 WBC 10.07 (4.8-10.8) K/uL RBC 4.51 (4.2-5.4) M/uL Hgb 14.5 (12.0-16.0) g/dL Hct 43.3 (37-47) % MCV 96.0 (80-100) fL MCH 32.2 (25-34) pg MCHC 33.5 (32-36) g/dL RDW Std Deviation 48.3 H (36.4-46.3) fL RDW Coeff of Kyle 13.7 (11.5-14.5) % Plt Count 311 (130-400) K/uL MPV 9.7 (7.4-10.4) fL Immature Gran % (Auto) 0.4 % Neut % (Auto) 66.4 % Lymph % (Auto) 15.8 % [place] % (Auto) 9.5 % Eos % (Auto) 7.5 % Baso % (Auto) 0.4 % Immature Gran # (Auto) 0.04 H (0.00-0.02) K/uL Neut # (Auto) 6.68 H (1.4-6.5) K/uL Lymph # (Auto) 1.59 (1.2-3.4) K/uL [place] # (Auto) 0.96 H (0.11-0.59) K/uL Eos # (Auto) 0.76 H (0-0.5) K/uL Baso # (Auto) 0.04 (0-0.2) K/uL PT (9.0-12.0) Seconds INR (0.9-1.1) APTT 65.2 H* (21.0-31.0) Seconds PTT Ratio 2.4 Sodium 138 (136-145) mmol/L Potassium 3.7 (3.5-5.1) mmol/L Chloride 106 (98-107) mmol/L Carbon Dioxide 23 (21-32) mmol/L Anion Gap 9.0 (3-11) BUN 13 (7-18) mg/dl Creatinine 1.11 (0.6-1.2) mg/dl Est Cr Clr Drug Dosing 34.1 ml/min Est GFR ( Amer) 55.9 Est GFR (Non-Af Amer) 48.2 BUN/Creatinine Ratio 11.4 (10-20) Glucose 83 (70-99) mg/dl Lactate (0.4-2.0) mmol/L Calcium 9.9 (8.5-10.1) mg/dl Total Bilirubin 0.4 (0.2-1) mg/dl AST 17 (15-37) U/L ALT 15 (12-78) U/L Alkaline Phosphatase 80 (45-117) U/L Troponin I < 0.015 (0-0.045) ng/ml Total Protein 7.3 (6.4-8.2) gm/dl Albumin 4.0 (3.4-5.0) gm/dl Globulin 3.3 (2.5-4.0) gm/dl Albumin/Globulin Ratio 1.2 (0.9-2) 08/30/19 08/30/19 Range/Units 17:05 17:05 WBC 9.06 (4.8-10.8) K/uL RBC 4.85 (4.2-5.4) M/uL Hgb 15.9 (12.0-16.0) g/dL Hct 45.9 (37-47) % MCV 94.6 (80-100) fL MCH 32.8 (25-34) pg MCHC 34.6 (32-36) g/dL RDW Std Deviation 46.5 H (36.4-46.3) fL RDW Coeff of Kyle 13.5 (11.5-14.5) % Plt Count 380 (130-400) K/uL MPV 9.7 (7.4-10.4) fL Immature Gran % (Auto) 0.3 % Neut % (Auto) 61.9 % Lymph % (Auto) 18.7 % [place] % (Auto) 12.0 % Eos % (Auto) 6.5 % Baso % (Auto) 0.6 % Immature Gran # (Auto) 0.03 H (0.00-0.02) K/uL Neut # (Auto) 5.61 (1.4-6.5) K/uL Lymph # (Auto) 1.69 (1.2-3.4) K/uL [place] # (Auto) 1.09 H (0.11-0.59) K/uL Eos # (Auto) 0.59 H (0-0.5) K/uL Baso # (Auto) 0.05 (0-0.2) K/uL PT 11.0 (9.0-12.0) Seconds INR 1.1 (0.9-1.1) APTT 29.6 (21.0-31.0) Seconds PTT Ratio 1.1 Sodium (136-145) mmol/L Potassium (3.5-5.1) mmol/L Chloride (98-107) mmol/L Carbon Dioxide (21-32) mmol/L Anion Gap (3-11) BUN (7-18) mg/dl Creatinine (0.6-1.2) mg/dl Est Cr Clr Drug Dosing ml/min Est GFR ( Amer) Est GFR (Non-Af Amer) BUN/Creatinine Ratio (10-20) Glucose (70-99) mg/dl Lactate (0.4-2.0) mmol/L Calcium (8.5-10.1) mg/dl Total Bilirubin (0.2-1) mg/dl AST (15-37) U/L ALT (12-78) U/L Alkaline Phosphatase (45-117) U/L Troponin I (0-0.045) ng/ml Total Protein (6.4-8.2) gm/dl Albumin (3.4-5.0) gm/dl Globulin (2.5-4.0) gm/dl Albumin/Globulin Ratio (0.9-2) Diagnostic Findings US venous doppler LE LT COMPARISON: Duplex venous Doppler study 07/14/2019 FINDINGS: Normal flow, compressibility, phasicity and augmentation of the left lower extremity deep venous structures. Stent of the superficial femoral artery is noted with occlusion of the entire imaged superficial femoral artery. IMPRESSION: 1. No sonographic evidence of deep venous thrombosis. 2. Incidental note is made of an occluded stent of the left superficial femoral artery. PG Care Time/CCT Total # of Minutes Spent Total Time Spent with Patient: Total time spent is greater than 50% in coordination of care (as documented) at patient's floor/unit and/or counseling patient: (1) Depression Active/Remission status: remission status unspecified Depression Type: major depressive disorder Major depression recurrence: recurrent Qualified Code(s): F33.9 - Major depressive disorder, recurrent, unspecified (2) Hyperlipidemia Hyperlipidemia type: unspecified Qualified Code(s): E78.5 - Hyperlipidemia, unspecified (3) Hypothyroidism Hypothyroidism type: unspecified Qualified Code(s): E03.9 - Hypothyroidism, unspecified (4) GERD (gastroesophageal reflux disease) Esophagitis presence: esophagitis presence not specified Qualified Code(s): K21.9 - Gastro-esophageal reflux disease without esophagitis (5) Hypertension Hypertension type: essential hypertension Qualified Code(s): I10 - Essential (primary) hypertension
[2019-08-31] MEDS: HYDROCODONE/ACETAMOPHEN 5/325MG TAB PO PRN (17:19)
[2019-08-31] MEDS: PRAMIPEXOLE DIHYDROCHLO 0.25 MG TAB PO SCH (20:04)
[2019-08-31] MEDS: ZOLPIDEM TARTRATE 5 MG TAB PO PRN (21:52)
[2019-08-31] MEDS: HEPARIN SODIUM/DEXTROSE 25,000 UNITS/500 ML BAG IV SCH (23:04)
[2019-09-01] MEDS: LEVOTHYROXINE SODIUM 88 MCG TABLET PO SCH (05:58)
[2019-09-01 07:34] LABS: Hematocrit (blood only) 42.7 % (37-47); Hemoglobin 14.7 g/dL (12.0-16.0); Mean Corpuscular Hemoglobin 32.7 pg (25-34); Mean Corpuscular Hgb Conc 34.4 g/dL (32-36); Mean Corpuscular Volume 94.9 fL (80-100); Platelet Count 299 K/uL (130-400); RDW Coefficient of Variation 13.9 % (11.5-14.5); White Blood Count 8.04 K/uL (4.8-10.8)
[2019-09-01 07:54] LABS: Partial Thromboplastin Ratio 2.5
[2019-09-01 08:00] LABS: Partial Thromboplastin Time 67.7 Seconds (21.0-31.0)
[2019-09-01 08:05] LABS: BUN Creatinine Ratio 10.1 (10-20); Calcium 9.3 mg/dl (8.5-10.1); Creatinine Clr Calc Pharmacy 37.9 ml/min; Est GFR (African American) 63.4; Est GFR (Non-African American) 54.7; Potassium 3.8 mmol/L (3.5-5.1)
[2019-09-01] MEDS: DULOXETINE HCL 60 MG CAP PO SCH (09:04)
[2019-09-01] MEDS: GABAPENTIN 600 MG TAB PO SCH (09:04)
[2019-09-01] MEDS: lisinopriL 5 MG TAB PO SCH (09:05)
[2019-09-01] MEDS: FAMOTIDINE 20 MG TAB PO SCH (09:05)
[2019-09-01] MEDS: HYDROCODONE/ACETAMOPHEN 5/325MG TAB PO PRN (10:49)
--- NOTE | 2019-09-01 12:17 | Vascular Medicine Consultation ---
Date of Consultation September 01, 2019 Assessment & Plan (1) PAD (peripheral artery disease): 2. Collagenous colitis 3. Hypertension 4. Dyslipidemia 5. Anxiety/depression Patient found to have reoccluded left SFA stents. Do not feel this is an acute process and likely has been present since July when began noting worsening claudication symptoms. On exam patient has palpable DP/PT pulses and normal capillary refill. No evidence of critical limb ischemia. Feel patient's hip pain likely unrelated to current PAD. We discussed options for treating her recurrent claudication secondary to SFA occlusion. Options discussed included medical management, repeat attempted endovascular mention or femoropopliteal bypass. At this point would favor repeat attempt at endovascular intervention with extended vascular disease dose anticoagulation. Patient and are agreeable with this plan. She continues to have active collagenous colitis/diverticular disease and there is discussion of having a partial colectomy with Dr. Nick later this month. Feel SFA intervention can be safely deferred until after has recovered from her GI surgery. From a vascular disease standpoint can be discharged today with follow-up with me in 2 to 3 weeks. Would discharge on Xarelto 2.5 mg twice daily along with aspirin 75 mg daily. Both aspirin, Xarelto can be stopped as needed for GI surgery. History of Present Illness Attending Physician: Orlando Garza MD History of Present Illness Mrs. Silva is a pleasant 74-year-old woman with a history of peripheral arterial disease post vascular intervention with 2 overlapping Tigris stents to her left SFA occlusion in September 2018 readmitted with left lower extremity pain. Vascular medicine consulted in the setting of lower extremity duplex showing SFA reocclusion. Patient reports worsening exertional calf pain since July. Over the last 7 days this is been accompanied by left hip pain. Denies left lower extremity foot rest pain or ulcerations. Was taking extended Plavix, discontinued in early August. Since admission has continued to have left hip pain. Has been maintained on heparin infusion. Prior interventions: 08/2018occluded SFA treated with 2 drug-eluting balloons 09/2018reoccluded SFA treated with mechanical atherectomy and 2 overlapping Tigris stents Allergies Allergy/AdvReac Type Severity Reaction Status Date / Time Penicillins Allergy Hives Verified 08/30/19 17:46 Sulfa (Sulfonamide Allergy Hives Verified 08/30/19 17:46 Antibiotics) Home Medications Home Medications Medication Instructions Recorded Confirmed Type cyanocobalamin (vitamin B-12) 1,000 mcg PO WK 07/02/18 08/30/19 History [Vitamin B-12] ergocalciferol (vitamin D2) 50,000 unit PO MONTHLY 07/02/18 08/30/19 History [Vitamin D2] levothyroxine [Synthroid] 88 mcg PO QAM 07/02/18 08/30/19 History lisinopril 5 mg tablet 5 mg PO DAILY #90 tab 03/03/19 08/30/19 Rx diphenoxylate-atropine 2.5 1 tab PO QID PRN #30 tab 04/21/19 08/30/19 Rx mg-0.025 mg tablet duloxetine 60 mg capsule,delayed 60 mg PO QAM #30 cap 06/10/19 08/30/19 Rx release gabapentin 800 mg tablet 800 mg PO TID #90 tab 06/15/19 08/30/19 Rx pramipexole 0.25 mg tablet 0.25 mg PO PM #30 tab 06/15/19 08/30/19 Rx hydrocodone 5 mg-acetaminophen 325 1 tab PO TID PRN #180 tab 06/22/19 08/30/19 Rx mg tablet estradiol [Estrace] 1 gm PV 2XWK 07/14/19 08/30/19 History famotidine [Pepcid] 20 mg PO BID 08/30/19 08/30/19 History Patient History Medical History Collagenous colitis (Chronic) Depression (Chronic) Diverticular disease (Chronic) GERD (gastroesophageal reflux disease) (Chronic) History of anesthesia complications (Chronic) History of blood clots (Resolved) ? FOUND IN LEFT 5TH TOE, NO KNOWN ETIOLOGY History of hepatitis B (Resolved) SINCE CLEARED, CONTRACTED AFTER A BLOOD TRANSFUSION S/P ECTOPIC History of hepatitis C (Resolved) SINCE CURED, RECEIVED 6 MONTHS OF HARVONI. CONTRACTED HEP C FROM BLOOD TRANSFUSION AT [facility] AFTER A ECTOPIC . Hyperlipidemia (Chronic) can not tolerate statins Hypertension (Chronic) Hypothyroidism (Chronic) Osteoarthritis of knee (Chronic) PAD (peripheral artery disease) (Chronic) angioplasty / stenting of left superficial femoral artery 2019 Raynauds disease (Chronic) Restless leg syndrome (Chronic) TAKES MIRAPEX Vitamin D deficiency (Chronic) Surgical History H/O hemorrhoidectomy History of arthroscopy right knee History of cataract surgery bilateral History of hysterectomy History of laparoscopy HISTORY OF ECTOPIC X2 History of tonsillectomy History of tonsillectomy Social History Preferred Language: Pashto Communication Ability: Effective Magnetic Testing Technician Required: No Beliefs That Will Affect Care: None marital status: Current Living Situation: Spouse Feels Safe at Home: Yes Smoking Status: Former smoker Tobacco Type: cigarettes ; Second Hand Exposure: No ; Hx Alcohol Use: Yes Alcohol type: wine Hx Substance Use: No Review of Systems Review of Systems: All systems reviewed & are unremarkable except as noted in HPI & below Physical Exam Physical Exam: General: Comfortable, anxious Eyes: Sclerae anicteric, extraocular movements intact Lungs: Clear to auscultation bilaterally, no rhonchi or wheezes Cardiac: Regular rate and rhythm, no murmurs, rubs or gallops. Abdomen: Soft, nontender, nondistended, positive bowel sounds. Neuro: Nonfocal Psych: Alert orient x3, normal affect and mood Extremities/Vascular: -- 2+ radial bilaterally -- 2+ femoral bilaterally --Palpable popliteal pulse on left --Palpable DP/PT pulse on left -- No lower extremity ulcerations. -- No edema --Normal capillary refill on left Results & Data Vital Signs (Past 12 Hours) Vital Signs Temp Pulse Resp BP Pulse Ox 09/01/19 07:53 97.7 F 72 17 147/82 H 93 PG Care Time/CCT Total # of Minutes Spent Total Time Spent with Patient: Total time spent is greater than 50% in coordination of care (as documented) at patient's floor/unit and/or counseling patient:
--- NOTE | 2019-09-01 14:08 | Discharge Summary ---
Date of Service September 01, 2019 Admission HPI Per Admitting Provider Sadia Silva is a pleasant 74yo C female with history of HTN/HLP, PAD. Patient s/p LLE angiogram with mechanical atherectomy and percutaneous transluminal angioplasty and stenting of the left SFA with two overlapping Tigris stents performed by Dr. Maynard on 09/09/2018. She was instructed to take Plavix for approximately 1 year. Patient recently discontinued her Plavix after checking with Dr. Maynard' office. She reports cramping and pain in her left calf occurring with ambulation and relieved by rest ongoing for at least the last month. She had a venous Doppler study performed of the left lower extremity on 07/14/2018 which showed no evidence of DVT. Patient's left lower extremity pain became more frequent and more severe. Approximately 5 days ago she developed severe left groin pain with both movement and at rest. Her pain is ongoing, mild in severity at present. She denies additional complaints such as fever/chills/chest pain/palpitations/shortness of breath/nausea/vomiting/abdominal pain. ER course: Heparin drip Principal Diagnosis Occluded SFA stent Discharge Exam Constitutional WD/WN, vitals as above Respiratory normal respiratory effort; no respiratory distress and no labored breathing Auscultation: lungs clear to auscultation bilaterally Cardiovascular RRR, no murmur, no edema Gastrointestinal (Abdomen) Inspection/Auscultation: abdomen normal to inspection and normal bowel sounds; abdomen not distended Percussion/Palpation: abdomen soft; abdomen nontender Musculoskeletal no cyanosis or clubbing, extremities motor strength 5/5 Skin no rashes, warm and dry Neurologic moves all extremities and awake Psychiatric A+Ox3, euthymic affect Discharge Data Allergies Allergy/AdvReac Type Severity Reaction Status Date / Time Penicillins Allergy Hives Verified 08/30/19 17:46 Sulfa (Sulfonamide Allergy Hives Verified 08/30/19 17:46 Antibiotics) Consultations 08/30/19 17:59 ED Decision to Admit Stat 09/01/19 08:00 Consult Vascular Surgery Routine Ordered Studies 08/30/19 15:34 US venous doppler LE LT Stat Hospital Course (1) PAD (peripheral artery disease): * Patient with peripheral arterial disease status post stent placement in the SFA 09/09/2018, previously on Plavix which was discontinued earlier this month. She presented on 08/30 with stent occlusion. Mild pain in left groin. Left lower extremity is warm with weakly palpable pulses, but adequate capillary refill. * Per Dr. Maynard - Do not feel this is an acute process and likely has been present since July when began noting worsening claudication symptoms. No evidence of critical limb ischemia. At this point would favor repeat attempt at endovascular intervention with extended vascular disease dose anticoagulation. Feel SFA intervention can be safely deferred until after has recovered from her GI surgery.From a vascular disease standpoint can be discharged today. Would discharge on Xarelto 2.5 mg twice daily along with Clopidogrel 75 mg daily (patient reports she cannot take ASA). Both clopidogrel, Xarelto can be stopped as needed for GI surgery. * US Venous Doppler with occluded stent of LEFT SFA, no dvt * Heparin gtt dc'd (2) Collagenous colitis: * Stable * Patient with history of collagenous colitis as well as diverticular disease. She is scheduled to have partial colectomy performed later this month with Dr. Nick. * Continue diphenoxylateatropine as needed (3) Depression: * Increased anxiety/depression regarding health ever since move to [place] from [place]. Denies any worsening of symptoms currently. States she has one episode of clinically relevant depression in the past * Continue home duloxetine 60mg (4) Hypothyroidism: * Chronic. Stable. TSH = 1.43 on 06/22/2019 * Continue Synthroid 88 mcg p.o. daily (5) Vitamin D deficiency: * Chronic. * Patient may resume outpatient vitamin D supplementation on discharge (6) Hyperlipidemia: * Chronic. Stable. Patient is statin intolerant (7) Hypertension: * Blood pressures stable, 115/66 currently. Mildly elevated at 152/105 on admission -- likely component of pain * Continue lisinopril 5mg (8) Restless leg syndrome: * Chronic. Stable. * Continue Mirapex 0.25 mg p.o. every afternoon (9) GERD (gastroesophageal reflux disease): * Chronic. Stable. * Continue Pepcid 20 mg p.o. twice daily Total Time Total Time Spent Total Time Spent (In Minutes): greater than 30 minutes Discharge Plan Discharge Items Patient Disposition: Home - Self-Care Reason For Visit: LLE PAIN,OCCLUDED VASCULAR STENT Discharge Diagnosis: Occluded vascular stent Activity: Resume your previous activity Activity Comment: gradually as tolerated Non-emergency contact: Primary Care Provider Call non-emergency contact if: you have any medication questions, your symptoms worsen and you have a fever Follow-up/Referrals: Jj Nick MD [Surgeon] - 09/08/19 10:40 am (Please, follow up at [facility] General Surgery Office with Dr. Nick on FridaySeptember 08 at 10:40 am. *The office is located at [address] [place] [address] in [place]. If you need to change this appointment, call the office at [phone].) Nikia Parks MD [Primary Care Provider] - 09/10/19 2:00 pm (Please, follow up with Dr. Parks on FridaySeptember 10 at 2:00 pm. 8If you need to change this appointment, call the office at [phone].) Travis Maynard MD [Physician] - 09/08/19 9:30 am (Please, follow up at [facility] Cardiology Office with Dr. Ian Maynard on FridaySeptember 08 at 9:30 am. *The office is located in [address] of [facility], next to this hospital. If you have any questions, call the office at [phone].) Diet: Heart Healthy Addtl Attending Provider Instructions: (1) PAD (peripheral artery disease): You were found to have occluded left superficial femoral artery stents. Dr. Maynard feels that vascular intervention can be safely deferred until after you have recovered from GI surgery. You will discharge on rivaroxaban (Xarelto) 2.5 mg twice daily along with clopidogrel (Plavix) 75 mg daily. You will have your evening dose of Xeralto here in the hospital before you discharge and the your next dose will be tomorrow morning. Both Plavix and Xarelto can be stopped as needed for GI surgery. While on Xeralto, you should call your doctor right away if you fall or hit your head, if you see blood in your stool or black tarry stools, if you develop little red spots on your skin (petechiae), or if you develop excessive bruising. You may bleed more easily. Be careful and avoid injury. Use a soft toothbrush and an electric razor. Do not to take any [id number] pain medicine except Tylenol (including aspirin, ibuprofen, Motrin, Aleve, Advil, naproxen, diclofenac sodium, oral Voltaren, also not allowed to take fish oil as all these medications increase your incidence of bleeding) You can take Tylenol as needed for pain but not more than 3000 mg per day as a total dose (that is the maximum of 6 tablet, 500 mg each, divided throughout the day) , if you take more than the total of 3000 mg of Tylenol throughout the day you may damage your liver. US Venous Doppler with occluded stent of LEFT SFA but no DVT (2) Collagenous colitis: Follow up with with Dr. Nick. (3) Depression: Continue home duloxetine 60mg (4) Hypothyroidism: TSH = 1.43 on 06/22/2019 Continue Synthroid 88 mcg p.o. daily (5) Vitamin D deficiency: May resume outpatient vitamin D supplementation on discharge (6) Hypertension: Continue lisinopril 5mg (7) Restless leg syndrome: Continue Mirapex 0.25 mg p.o. every afternoon (9) GERD (gastroesophageal reflux disease): Continue Pepcid 20 mg p.o. twice daily Pending Studies at Discharge: No Stand-Alone Forms: My [facility] [employer], Opioid Pain Management, Smoking Cessation Medications and DC Order Prescriptions: New Xarelto 2.5 mg Tablet 2.5 mg PO BID Qty: 60 RF: 1 clopidogrel 75 mg tablet 75 mg PO DAILY Qty: 30 RF: 0 Continued diphenoxylate-atropine 2.5-0.025 mg tablet 1 tab PO QID PRN (Reason: diarrhea) Qty: 30 RF: 1 duloxetine [Cymbalta] 60 mg capsule,delayed release(DR/EC) 60 mg PO QAM Qty: 30 RF: 5 gabapentin 800 mg tablet 800 mg PO TID Qty: 90 RF: 5 pramipexole [Mirapex] 0.25 mg tablet 0.25 mg PO PM Qty: 30 RF: 5 lisinopril 5 mg tablet 5 mg PO DAILY Qty: 90 RF: 3 hydrocodone-acetaminophen 5-325 mg tablet 1 tab PO TID PRN (Reason: pain) Qty: 180 RF: 0 cyanocobalamin (vitamin B-12) [Vitamin B-12] 1,000 mcg Tablet 1,000 mcg PO WK RF: 0 levothyroxine [Synthroid] 88 mcg Tablet 88 mcg PO QAM RF: 0 ergocalciferol (vitamin D2) [Vitamin D2] 50,000 unit Capsule 50,000 unit PO MONTHLY RF: 0 estradiol [Estrace] 0.01 % (0.1 mg/gram) cream 1 gm PV 2XWK RF: 0 famotidine [Pepcid] 20 mg tablet 20 mg PO BID RF: 0 Discharge Orders: Discharge Order (Routine); Ordered 09/01/19 Ordered By: Pam Zaragoza/Other Patient Handouts: Rivaroxaban Oral tablet Rivaroxaban Oral tablet Admission Data Admit Date/Time: 08/30/19 19:03 Attending Provider: Orlando Garza Admit Provider: Iris Ramesh Primary Care Provider: Nikia Parks Other Providers: Iris Ramesh ; Travis Maynard Other Interventions: Discharge Summary Assessment (RN) Last Done: 09/01/19 15:17 DC Date/Time DO NOT enter until pt leaves facility: 09/01/19 16:35 Supervising Physician Co-Signing Physician Notes I supervised Pam Swartz NP on this patient's care. I examined the patient today independently of her. I discussed the plan of care with her with the plan being as written in her note except for any following changes/exceptions: None. Doing well overall. Will start ASA/anticoagulation to help with continued PAD. After colectomy with surgery, can attempt new procedure for the leg.
[2019-09-01] MEDS ORDERED: RIVAROXABAN 2.5 MG TAB PO SCH (16:00)
== END 2019-09-01 16:35 | disposition home or self-care (01) | DRG 316 ==
LOC: ED 15:21 → SUATTDRO 19:03 → 3N 19:03

== ENCOUNTER 2019-09-24 10:28 | Observation (INO) ==
[2019-09-24] MEDS ORDERED: NiCARDipine HCL INJ 2.5 MG/ML 10 ML AMP ONE (14:51)
[2019-09-24] MEDS ORDERED: MIDAZOLAM HCL 5 MG/ML 1 ML VIAL ONE ×2 (14:51→16:35)
[2019-09-24] MEDS ORDERED: fentaNYL citrate 100 MCG/2 ML VIAL ONE ×3 (14:51→17:21)
--- NOTE | 2019-09-24 14:56 | Pre Anesthesia Assessment ---
Date of Service September 24, 2019 Pre Sedation Assessment Vital Signs Temp Pulse Resp BP Pulse Ox 09/24/19 10:41 98.2 F 87 20 138/81 99 Cardiovascular RRR, no murmur, no edema Respiratory normal respiratory effort, lungs clear to auscultation Pre-Sedation Airway Assessment Smoking Status: Never smoker Hx Sleep Apnea: No Hx Difficult Intubation: No Mallampati Class: III ASA: ASA3 Procedure Planning Contraindications for Sedation: none Current Medications Reviewed: Yes Notes The planned sedation has been discussed with the patient. Informed Consent was obtained. I have identified the patient, determined the appropriateness of sedation and have assessed the patient immediately prior to the procedure. All medicine(s) and interventions are by my order.
--- NOTE | 2019-09-24 14:57 | History & Physical Bridge Note ---
Date of Service September 24, 2019 History & Physical Bridge Note I have examined the patient, reviewed the History & Physical and in the interval since the performance of the History & Physical I have noted the following changes of clinical significance: no changes noted
[2019-09-24] MEDS ORDERED: HEPARIN (PORCINE) 1000 UNIT/ML 10 ML (CATH LAB USE ONLY) ONE (15:51)
--- NOTE | 2019-09-24 18:16 | Post Anesthesia Assessment ---
Date of Service September 24, 2019 Post Sedation Assessment Vital Signs Temp Pulse Resp BP Pulse Ox 09/24/19 10:41 98.2 F 87 20 138/81 99 Recovery Score Activity: Moves 4 extremities Respiration: Deep Breath/Cough Circulation: +/-20% PreAnes Value Consciousness: Fully Awake Oxygen Saturation: O2 needed for >90% Discharge Sedation Level of Care: Fast Track Phase II Post Sedation Plan On clinical assessment, the patient appears to have tolerated the sedation without complications. Patient is recovering as anticipated. Patient will continue to be monitored by nursing and may be discharged when sedation discharge criteria are met per below protocol. Upon Completions of procedure up to 15 minutes continue every 5 minute vital signs and the P.A.R. score; then discharge to a Phase I or Fast Track to Phase II per the following guidelines: * Discharge Patient to appropriate Phase II area if PAR is 8 or greater or return to pre- procedure baseline. The post - procedure orders will be as directed. * If PAR score is less than 8 or not return to pre-procedure baseline then patient will follow Phase I monitoring till PAR is reached for Phase II. The Phase I may be done in procedure room or may call to secure a Phase I area. * If naloxone or flumazenil are used for reversal, hold in Phase I for continued monitoring from when last reversal dose was given for a minimum of 60 minutes or longer pending the nurse and/or physician discretion of patient condition before discharge to Phase II. Please call the Sedation Physician to re-evaluate and complete post-note for discharge to Phase II area. Do NOT discharge from procedure sedation or Phase 1 until post- sedation evaluation note is complete by procedure /sedation MD Sedation Discharge Instructions to be given to the patient at discharge to home.
[2019-09-24] MEDS ORDERED: ACETAMINOPHEN 325 MG TAB PO PRN (18:17)
[2019-09-24] MEDS ORDERED: ONDANSETRON INJ 2 MG/ML 2 ML VIAL IV PRN (18:17)
[2019-09-24] MEDS ORDERED: MoRPHine SULFATE 2 MG/ML CARP IV PRN (18:17)
[2019-09-24] MEDS ORDERED: CLOPIDOGREL BISULFATE 300 MG TAB ONE (18:19)
[2019-09-24] MEDS ORDERED: DIPHENOXYLATE/ATROPINE 2.5/0.025MG TAB PO PRN (18:23)
[2019-09-24] MEDS ORDERED: SODIUM CHLORIDE 0.9% 1000ML 1,000 ML IV SCH (18:30)
[2019-09-24] MEDS: FAMOTIDINE 20 MG TAB PO SCH (20:02)
[2019-09-24] MEDS: HYDROCODONE/ACETAMOPHEN 5/325MG TAB PO PRN (20:06)
[2019-09-24] MEDS ORDERED: PRAMIPEXOLE DIHYDROCHLO 0.25 MG TAB PO SCH (21:00)
[2019-09-24] MEDS: GABAPENTIN 800 MG TAB PO SCH (21:02)
--- NOTE | 2019-09-24 22:28 | Operative Report ---
PG Post Operative Report Pre & Post Diagnosis Operation Date: 09/24/19 11:30 <No data on this case meets the specified criteria> I identified the patient and participated in the time-out.: Yes Procedure Operation Date: 09/24/19 11:30 Actual Procedures p Cath, Left with Cors and Vent - Travis Maynard MD Surgeon Blaine Maynard MD Executive Associate Guerrero Cristina Estimated Blood Loss 20 Findings Consistent with Post-Op Diagnosis [place] significant aneurysmal or stenotic disease Right lower extremity Iliacs, SUPERVISOR SHUTTLE VENEERING widely patent. SUPERVISOR SHUTTLE VENEERING suitable for closure Left lower extremity Iliacs, SUPERVISOR SHUTTLE VENEERING widely patent with minimal disease 100% proximal SFA in-stent occlusion. Long occlusion extending to popliteal artery. Popliteal artery and TPT widely patent Posterior tibial artery patent to the foot. Proximal STEPHEN occluded. Fills di stally via collaterals. Specimens None Drains None Complications none Disposition Disposition: PCU Description of Procedure Right common femoral access obtained under ultrasound guidance, short 5Fr sheath placed LLE angiogram performed with RIM catheter 6 Fr 45 cm destination sheath placed from right SUPERVISOR SHUTTLE VENEERING to left SUPERVISOR SHUTTLE VENEERING SFA occlusion crossed with glide advantage wire and quick cross catheter Intraluminal position confirmed via injection through quick cross catheter Wire exchanged for 0.14 Viper wire [place] 2.2 mm atherectomy catheter passed through first stent. Unable to con tinue in a second stent as wire had passed behind stent struts SFA occlusion rewired with glide advantage wire and 6.0 OTW balloon Full length of SFA dilated with 6.0 balloon to reestablish flow Areas of thrombus in proximal and distal SFA 6Fr destination sheath SFA predilated with a 7.0 balloon. Residual stenosis, thrombus post prolonged inflation Distal SFA stented with 7.0 x 150 by Viabahn Mid SFA stented with 7.0 x 100 Viabahn overlapped with distal Viabahn Proximal SFA stented with a 7.0 x 100 Viabahn stenting from ostium across prior stent and overlapping with mid segment Viabahn Viabahn stents postdilated with 7.0 balloon Post procedure good angiographic result, no evidence of dissection and good 2 vessel run-off. Contrast used: 200 Access closure: StarClose Summary: 1. Successful angioplasty, phoenix atherectomy and stenting of long SFA in-stent occlusion with 3 overlapping covered stents (7.0 x 10, 7.0 x 10, 7.0 x 15 Viabahn). Recommendations: Continue clopidogrel (prior aspirin intolerance). With heavy thrombus burden treat with Xarelto 20mg daily for 1 month After 1 month continue Xarelto 2.5 mg BID and clopidogrel going forward Continue ASCVD risk factor modification Follow-up ultrasound in 3 weeks. I attest to the content of the Intraoperative Record and any orders documented therein. Any exceptions are noted below.
[2019-09-25 06:30] LABS: Est GFR (African American) 57.1; Est GFR (Non-African American) 49.3
[2019-09-25] MEDS ORDERED: LEVOTHYROXINE SODIUM 88 MCG TABLET PO SCH (06:30)
[2019-09-25] MEDS: GABAPENTIN 800 MG TAB PO SCH (07:29)
[2019-09-25] MEDS: HYDROCODONE/ACETAMOPHEN 5/325MG TAB PO PRN (07:29)
[2019-09-25] MEDS: FAMOTIDINE 20 MG TAB PO SCH (07:30)
[2019-09-25] MEDS ORDERED: COUGH DROP (SUGAR FREE) LOZ 24 LOZ/1 BOX BUCCAL STA (07:33)
[2019-09-25] MEDS ORDERED: COUGH DROP (SUGAR FREE) LOZ 24 LOZ/1 BOX BUCCAL ONE (07:36)
[2019-09-25] MEDS ORDERED: lisinopriL 5 MG TAB PO SCH (09:00)
[2019-09-25] MEDS ORDERED: CLOPIDOGREL BISULFATE 75 MG TAB PO SCH (09:00)
[2019-09-25] MEDS ORDERED: ASPIRIN 81 MG ECTAB PO SCH (09:00)
[2019-09-25] MEDS ORDERED: DULOXETINE HCL 60 MG CAP PO SCH (09:00)
[2019-09-25] MEDS ORDERED: RIVAROXABAN 20 MG TAB PO ONE (09:18)
[2019-09-25] MEDS ORDERED: RIVAROXABAN 20 MG TAB PO SCH (17:00)
--- NOTE | 2019-09-27 16:45 | Discharge Summary ---
Date of Service September 27, 2019 Admission HPI Per Admitting Provider Mrs. Silva is a pleasant 74-year-old woman with a history of peripheral arterial disease post vascular intervention with 2 overlapping Tigris stents to her left SFA occlusion in September 2018, recently readmitted with left lower extremity pain here today for post hospital follow-up. During admission had lower extremity duplex showing SFA reocclusion. Patient reported worsening exertional calf pain since July with new left hip pain for the preceding week. No rest pain or ulcerations. Was taking extended Plavix, discontinued in early August. Was started on heparin infusion. Occlusion thought more chronic and discharged to home on PAD dose xarelto. Since discharge states hip pain is better. Exertional calf pain slightly better when walking dogs. No other new concerns. Prior interventions: 08/2018occluded SFA treated with 2 drug-eluting balloons 09/2018reoccluded SFA treated with mechanical atherectomy and 2 overlapping Tigris stents [facility] 1. Successful angioplasty, phoenix atherectomy and stenting of long SFA in-stent occlusion with 3 overlapping covered stents (7.0 x 10, 7.0 x 10, 7.0 x 15 Viabahn). Discharge Data Procedures Performed Operation Date: 09/24/19 11:30 Actual Procedures p Angio Extremity Unilateral - Travis Maynard MD s SC Select Cath ALEP 3rd Order - Travis Maynard MD s Fem Pop Stent Balloon Atherect - Travis Maynard MD s Ultrasound Vascular Access - Travis Maynard MD s Placement Art Occlusive Device - Travis Maynard MD Hospital Course (1) PAD (peripheral artery disease): Patient underwent successful endovascular intervention to left SFA in- stent reocclusion via right common femoral artery access. Procedure uncomplicated. Admitted for overnight observation to telemetry service. On day of discharge no access site complications. Endorsed moderate discomfort at access site. Distal lower extremities well perfused. Remained hemodynamically stable. Discharge to home on treatment dose Xarelto 20 mg daily in the setting of heavy thrombus burden in arterial occlusion. Plan to continue Xarelto 20 mg for 1 month then transition back to Xarelto 2.5 mg twice daily. Continue clopidogrel. Follow-up in 3 to 4 weeks with repeat arterial duplex. Coding Level of Care Code 55903 OBS Care - Discharge Diagnoses PAD (peripheral artery disease) I73.9
== END 2019-09-25 10:48 | disposition home or self-care (01) ==
LOC: CC 10:28 → 2S 10:28
PROC: CLB.AEU (2019-09-24 11:30)

== ENCOUNTER 2020-07-07 10:27 | Inpatient (IN) ==
--- NOTE | 2020-05-30 14:03 | PAT Medication Instructions ---
Medication Instructions Date of Service May 30, 2020 Home Medications Medication Instructions Recorded diphenoxylate-atropine 2.5 1 tab PO QID PRN #30 tab 04/21/19 mg-0.025 mg tablet acetaminophen [Mapap 650 mg PO Q6H PRN #30 tab 09/25/19 (acetaminophen)] ergocalciferol (vitamin D2) 1,250 50,000 unit PO MONTHLY #12 cap 11/04/19 mcg (50,000 unit) capsule duloxetine 60 mg capsule,delayed 60 mg PO QAM #30 cap 12/02/19 release pramipexole 0.25 mg tablet 0.25 mg PO PM #30 tab 12/16/19 levothyroxine 88 mcg tablet 88 mcg PO QAM #90 tab 12/30/19 rivaroxaban 2.5 mg tablet 2.5 mg PO BID #60 tab 01/14/20 estradiol 1 gm PV 2XWK #42.5 gm 01/26/20 lisinopril 5 mg tablet 5 mg PO DAILY #90 tab 03/14/20 clopidogrel 75 mg tablet 75 mg PO DAILY #30 tab 03/27/20 gabapentin 800 mg tablet 800 mg PO TID #90 tab 03/27/20 hydrocodone 5 mg-acetaminophen 325 1 tab PO TID PRN #180 tab 05/18/20 mg tablet ciprofloxacin HCl 500 mg tablet 500 mg PO BID #20 tab 05/26/20 metronidazole 500 mg tablet 500 mg PO TID #30 tab 05/26/20 cyanocobalamin (vitamin B-12) [Vitamin B-12] 1,000 mcg PO WK diphenoxylate-atropine 2.5 mg-0.025 mg tablet 1 tab PO QID PRN acetaminophen [Mapap (acetaminophen)] 650 mg PO Q6H PRN ergocalciferol (vitamin D2) 1,250 mcg (50,000 unit) capsule 50,000 unit PO MONTHLY duloxetine 60 mg capsule,delayed release 60 mg PO QAM pramipexole 0.25 mg tablet 0.25 mg PO PM levothyroxine 88 mcg tablet 88 mcg PO QAM rivaroxaban 2.5 mg tablet 2.5 mg PO BID estradiol 1 gm PV 2XWK rosuvastatin 5 mg tablet 5 mg PO Q OTHER DAY lisinopril 5 mg tablet 5 mg PO DAILY clopidogrel 75 mg tablet 75 mg PO DAILY gabapentin 800 mg tablet 800 mg PO TID hydrocodone 5 mg-acetaminophen 325 mg tablet 1 tab PO TID PRN ciprofloxacin HCl 500 mg tablet 500 mg PO BID metronidazole 500 mg tablet 500 mg PO TID Continue as directed estradiol 1 gm PV 2XWK (unless otherwise instructed by your surgeon) ciprofloxacin HCl 500 mg tablet 500 mg PO BID metronidazole 500 mg tablet 500 mg PO TID ASK your prescriber and surgeon rivaroxaban 2.5 mg tablet 2.5 mg PO BID clopidogrel 75 mg tablet 75 mg PO DAILY STOP taking 24 hours before surgery pramipexole 0.25 mg tablet 0.25 mg PO PM DO NOT take the morning of surgery cyanocobalamin (vitamin B-12) [Vitamin B-12] 1,000 mcg PO WK diphenoxylate-atropine 2.5 mg-0.025 mg tablet 1 tab PO QID PRN ergocalciferol (vitamin D2) 1,250 mcg (50,000 unit) capsule 50,000 unit PO MONTHLY lisinopril 5 mg tablet 5 mg PO DAILY Take morning of surgery With a small sip of water, OTHERWISE NOTHING TO EAT OR DRINK AFTER MIDNIGHT: acetaminophen [Mapap (acetaminophen)] 650 mg PO Q6H PRN (if needed, may be taken up to four hours before surgery) duloxetine 60 mg capsule,delayed release 60 mg PO QAM levothyroxine 88 mcg tablet 88 mcg PO QAM gabapentin 800 mg tablet 800 mg PO TID hydrocodone 5 mg-acetaminophen 325 mg tablet 1 tab PO TID PRN (if needed, may be taken up to four hours before surgery) rosuvastatin 5 mg tablet 5 mg PO Q OTHER DAY Other Notes If you have any questions please call us at [phone] or [phone] or [phone] or [phone]
--- NOTE | 2020-05-31 10:41 | Anesthesiology Consultation ---
Date of Service May 31, 2020 Assessment & Plan (1) Encounter for pre-operative examination: COVID Status: As of 05/31 assessment, patient denies travel to endemic area, known exposure/sick contacts, or symptoms of COVID19. Patient instructed that they and their household members must follow strict social distancing guidelines, wear a mask in public and avoid travel for 14 days prior to surgery. Preoperative COVID19 testing to be completed prior to surgery per surgeon's a rrangements. Patient made aware to self-isolate as much as possible between COVID testing and surgery. Upcoming travel: Patient will be going to [facility] with family, returning 06/13, which will be well in advance of COVID testing. Anticoagulation: patient to defer to surgeon and prescribers (Caesar/Tee) for Plavix and Xarelto instructions. Chart Review Chart Review: Acceptable Risk for Surgery and Patient seen in Pre Admission Testing Teaching & Discussion Instructed NPO after midnight before surgery, except medications with 15 cc of water. Medication instructions provided according to the PAT guidelines. Plavix and Xarelto instructions per , pt instructed to check with him and surgeon. History Surgery Operation Date: 07/07/20 10:55 Proposed Procedures p Left Total Shoulder Arthroplasty - Vasyl Blanchard DO p Versus Reverse Total Shoulder Arthroplasty - Vasyl Blanchard DO Height/Weight Height: 5 ft 2.25 in Weight: 60.6 kg Allergies Allergy/AdvReac Type Severity Reaction Status Date / Time Penicillins Allergy Intermediate Hives Verified 05/29/20 08:15 Sulfa (Sulfonamide Allergy Intermediate Hives Verified 05/29/20 08:15 Antibiotics) Medications Home Medications Medication Instructions Recorded Confirmed Last Taken cyanocobalamin (vitamin B-12) 1,000 mcg PO WK 07/02/18 05/29/20 08/30/19 [Vitamin B-12] diphenoxylate-atropine 2.5 1 tab PO QID PRN #30 tab 04/21/19 05/29/20 Unknown mg-0.025 mg tablet acetaminophen [Mapap 650 mg PO Q6H PRN #30 tab 09/25/19 05/29/20 Unknown (acetaminophen)] ergocalciferol (vitamin D2) 1,250 50,000 unit PO MONTHLY #12 cap 11/04/19 05/29/20 Unknown mcg (50,000 unit) capsule duloxetine 60 mg capsule,delayed 60 mg PO QAM #30 cap 12/02/19 05/29/20 Unknown release pramipexole 0.25 mg tablet 0.25 mg PO PM #30 tab 12/16/19 05/29/20 Unknown levothyroxine 88 mcg tablet 88 mcg PO QAM #90 tab 12/30/19 05/29/20 Unknown rivaroxaban 2.5 mg tablet 2.5 mg PO BID #60 tab 01/14/20 05/29/20 Unknown estradiol 1 gm PV 2XWK #42.5 gm 01/26/20 05/29/20 Unknown rosuvastatin 5 mg tablet 5 mg PO Q OTHER DAY tab 02/24/20 05/29/20 Unknown lisinopril 5 mg tablet 5 mg PO DAILY #90 tab 03/14/20 05/29/20 Unknown clopidogrel 75 mg tablet 75 mg PO DAILY #30 tab 03/27/20 05/29/20 Unknown gabapentin 800 mg tablet 800 mg PO TID #90 tab 03/27/20 05/29/20 Unknown hydrocodone 5 mg-acetaminophen 325 1 tab PO TID PRN #180 tab 05/18/20 05/29/20 Unknown mg tablet ciprofloxacin HCl 500 mg tablet 500 mg PO BID #20 tab 05/26/20 05/29/20 Unknown metronidazole 500 mg tablet 500 mg PO TID #30 tab 05/26/20 05/29/20 Unknown Past Medical History Medical History (Updated 06/01/20 @ 08:58 by Sav Tran) Collagenous colitis Deep vein thrombosis LEFT LEG DX 09/2019 (VASCULAR DISEASE) REASON FOR XARELTO Depression Diarrhea Diverticular disease GERD (gastroesophageal reflux disease) History of hepatitis B SINCE CLEARED, CONTRACTED AFTER A BLOOD TRANSFUSION S/P ECTOPIC History of hepatitis C SINCE CURED, RECEIVED 6 MONTHS OF HARVONI. CONTRACTED HEP C FROM BLOOD TRANSFUSION AT [facility] AFTER A ECTOPIC . Hx of breast cancer LEFT BREAST 2002 Hx of migraines Hyperlipidemia Hypertension Hypothyroidism Osteoarthritis PAD (peripheral artery disease) S/P angioplasty / stenting of left superficial femoral artery 09/2018; stent occlusion 2019 - treated with atherectomy, restenting. Was started on Xarelto due to heavy thrombus burden, also on Plavix. Following with Audra. Raynauds disease Restless leg syndrome Temporomandibular joint disorder Vitamin D deficiency Exercise / Class Metabolic Activity II 4-5 Yardwork/Stairs/Walk up hill Past Family History Family History Mother Diabetes Cancer Hypertension Depression Metastatic neoplastic disease Father Cancer Depression Cardiac disorder Myelodysplasia (myelodysplastic syndrome) Past Surgical History Surgical History (Updated 06/01/20 @ 08:58 by Sav Tran) H/O angioplasty SFA x , 2018 and 2019 H/O breast reconstruction H/O foot surgery LEFT FOOT NEEDLE REMOVED H/O hemorrhoidectomy H/O mastectomy LEFT History of arthroscopy right knee History of cardiac cath 09/2019 (NO STENTS) History of cataract surgery RT/LEFT History of colonoscopy History of esophagogastroduodenoscopy (EGD) History of hysterectomy History of laparoscopy HISTORY OF ECTOPIC X2 History of tonsillectomy History of tooth extraction Past Anesthesia History No Hx of Anesthesia Complications and No Family Hx of Anesthesia Complications History of PONV No Hx of PONV and No Hx of Motion Sickness Social History Smoking Status: Former smoker tobacco type: cigarettes Smoking cigarettes per day: 10 Do You Dip or Chew Tobacco: No Smoking End Date: 46 YEARS AGO Hx Alcohol Use: Yes Alcohol type: wine alcohol intake frequency: 0-2 drinks per day Hx Substance Use: No substance use type: does not use Review of Systems Pt denies any recent chest pain, shortness of breath, palpitations, cough, fever, URI, or uncontrolled acid reflux. Physical Exam Vital Signs BP: 118/80 P: 73bpm SPO2: 97% RA T: 97.6 F R: 16 ENMT Mouth: + dental restorations (a few crowns on molars); no chipped teeth and no loose teeth Thyromental Distance: < 3.5 Finger Breadths (3) Mallampati Class: II Neck normal visual inspection; neck extension not limited Respiratory normal respiratory effort Auscultation: lungs clear to auscultation bilaterally Cardiovascular Rate/Rhythm: regular rate and regular rhythm Heart Sounds: no murmur Extremities: no edema Testing Laboratory Results 05/31/20 10:51 05/31/20 10:51 PT 12.4 Seconds (9.0-12.0) H 05/31/20 10:51 INR 1.2 (0.9-1.1) H 05/31/20 10:51 APTT 38.5 Seconds (21.0-31.0) H 05/31/20 10:51 Blood Type B Positive 05/31/20 10:51 Antibody Screen NEGATIVE 05/31/20 10:51 Electrocardiogram Date: 08/30/19 Findings: + NSR @ (71bpm) Possible left atrial enlargement. Chest X-Ray Date: 05/31/20 Findings: + NAD
[2020-05-31 11:25] LABS: Basophils # (auto) 0.03 K/uL (0-0.2); Basophils % (auto) 0.4 %; Eosinophils % (auto) 10.3 %; Hematocrit (blood only) 41.4 % (37-47); Immature Granulocytes # (auto) 0.03 K/uL (0.00-0.02); Immature Granulocytes % (auto) 0.4 %; Lymphocytes # (auto) 1.29 K/uL (1.2-3.4); Lymphocytes % (auto) 16.6 %; Mean Corpuscular Hemoglobin 32.2 pg (25-34); Mean Corpuscular Hgb Conc 33.8 g/dL (32-36); Mean Corpuscular Volume 95.2 fL (80-100); Mean Platelet Volume 10.2 fL (7.4-10.4); Monocytes # (auto) 0.83 K/uL (0.11-0.59); Monocytes % (auto) 10.7 %; Neutrophils # (auto) 4.78 K/uL (1.4-6.5); Neutrophils % (auto) 61.6 %; Platelet Count 350 K/uL (130-400); RDW Coefficient of Variation 14.3 % (11.5-14.5); RDW Standard Deviation 49.7 fL (36.4-46.3); Red Blood Count 4.35 M/uL (4.2-5.4); White Blood Count 7.76 K/uL (4.8-10.8)
--- NOTE | 2020-05-31 11:37 | XRay Report ---
XR chest Pre-admission PA/Lat CLINICAL HISTORY: Preoperative chest COMPARISON STUDY: 02/24/2019 FINDINGS: The cardiac and mediastinal contours are normal. There is no evidence of focal pulmonary co nsolidation. There is no evidence of failure. No pleural effusions are visualized.[Surgical clips pro ject over the left breast. There is possible underlying emphysema. There is mild interstitial thicken ing with apical predominance. This appears chronic IMPRESSION: No active disease in the chest. ACT 112: Negative or not required by law. Electronically signed by: Tacos Boone M.D. 05/31/2020 11:35 AM
[2020-05-31 11:42] LABS: INR 1.2 (0.9-1.1); Partial Thromboplastin Ratio 1.4; Partial Thromboplastin Time 38.5 Seconds (21.0-31.0); Prothrombin Time 12.4 Seconds (9.0-12.0)
[2020-05-31 13:02] LABS: BUN Creatinine Ratio 19.6 (10-20); Calcium 9.6 mg/dl (8.5-10.1); Creatinine Clr Calc Pharmacy 36.2 ml/min; Est GFR (Non-African American) 51.8; Potassium 4.4 mmol/L (3.5-5.1)
--- NOTE | 2020-07-06 08:47 | History & Physical Report ---
Date of Service July 06, 2020 Assessment & Plan (1) DJD of left shoulder: We will proceed with a left total shoulder arthroplasty. Postoperatively she will be placed in a sling and kept overnight in the hospital for postoperative medical management. She plans to use energy physical therapy upon discharge. Present on Admission?: Yes History of Present Illness Chief Complaint: Primary osteoarthritis of the left shoulder Primary Care Provider: Nikia Parks MD Sadia is a pleasant 75-year-old female who is been dealing with chronic increasing left shoulder pain. X-rays and clinical examination have been diagnostic for advanced osteoarthritis of the left shoulder. After failing con servative treatment, she has elected proceed with a left total shoulder arthroplasty. Allergies Allergy/AdvReac Type Severity Reaction Status Date / Time Penicillins Allergy Intermediate Hives Verified 06/16/20 11:35 Sulfa (Sulfonamide Allergy Intermediate Hives Verified 06/16/20 11:35 Antibiotics) Home Medications Home Medications Medication Instructions Recorded Confirmed Type cyanocobalamin (vitamin B-12) 1,000 mcg PO WK 07/02/18 06/16/20 History [Vitamin B-12] diphenoxylate-atropine 2.5 1 tab PO QID PRN #30 tab 04/21/19 06/16/20 Rx mg-0.025 mg tablet acetaminophen [Mapap 650 mg PO Q6H PRN #30 tab 09/25/19 06/16/20 Rx (acetaminophen)] ergocalciferol (vitamin D2) 1,250 50,000 unit PO MONTHLY #12 cap 11/04/19 06/16/20 Rx mcg (50,000 unit) capsule levothyroxine 88 mcg tablet 88 mcg PO QAM #90 tab 12/30/19 06/16/20 Rx rivaroxaban 2.5 mg tablet 2.5 mg PO BID #60 tab 01/14/20 06/16/20 Rx estradiol 1 gm PV 2XWK #42.5 gm 01/26/20 06/16/20 Rx rosuvastatin 5 mg tablet 5 mg PO Q OTHER DAY tab 02/24/20 06/16/20 History lisinopril 5 mg tablet 5 mg PO DAILY #90 tab 03/14/20 06/16/20 Rx clopidogrel 75 mg tablet 75 mg PO DAILY #30 tab 03/27/20 06/16/20 Rx gabapentin 800 mg tablet 800 mg PO TID #90 tab 03/27/20 06/16/20 Rx hydrocodone 5 mg-acetaminophen 325 1 tab PO TID PRN #180 tab 05/18/20 06/16/20 Rx mg tablet duloxetine 60 mg capsule,delayed 60 mg PO QAM #30 cap 06/01/20 06/16/20 Rx release pramipexole 0.25 mg tablet 0.25 mg PO PM #30 tab 06/01/20 06/16/20 Rx Past Med/Surg History Medical History Collagenous colitis Deep vein thrombosis LEFT LEG DX 09/2019 (VASCULAR DISEASE) REASON FOR XARELTO Depression Diverticular disease GERD (gastroesophageal reflux disease) History of hepatitis B SINCE CLEARED, CONTRACTED AFTER A BLOOD TRANSFUSION S/P ECTOPIC History of hepatitis C SINCE CURED, RECEIVED 6 MONTHS OF HARVONI. CONTRACTED HEP C FROM BLOOD TRANS FUSION AT [facility] AFTER A ECTOPIC . Hx of breast cancer LEFT BREAST 2002 Hx of migraines Hyperlipidemia Hypertension Hypothyroidism PAD (peripheral artery disease) S/P angioplasty / stenting of left superficial femoral artery 09/2018; stent occlusion 2019 - treated with atherectomy, restenting. Was started on Xarelto due to heavy thrombus burden, also on Plavix. Following with Audra. Raynauds disease Restless leg syndrome Temporomandibular joint disorder Vitamin D deficiency Surgical History (Updated 06/01/20 @ 08:58 by Sav Tran) H/O angioplasty SFA x 2, 2018 and 2019 H/O breast reconstruction H/O foot surgery LEFT FOOT NEEDLE REMOVED H/O hemorrhoidectomy H/O mastectomy LEFT History of arthroscopy right knee History of cardiac cath 09/2019 (NO STENTS) History of cataract surgery RT/LEFT History of colonoscopy History of esophagogastroduodenoscopy (EGD) History of hysterectomy History of laparoscopy HISTORY OF ECTOPIC X2 History of tonsillectomy History of tooth extraction Family History Mother Diabetes Cancer Hypertension Depression Metastatic neoplastic disease Father Cancer Depression Cardiac disorder Myelodysplasia (myelodysplastic syndrome) Social History Smoking Status: Former smoker Age Started Using Tobacco: 19; Age Quit Using Tobacco: 24; packs per day: 0.5; Years Smoked: 5; Cigarettes Per Day: 10; Number of Years Since Quit: 50; Second Hand Exposure: Yes ( A CHILD); Hx Alcohol Use: Yes Alcohol type: wine Hx Substance Use: No Preferred Language: Belarusian Communication Ability: Effective Visual Impairment: No Limitations Hearing Ability: Normal Security Architect Required: No Beliefs That Will Affect Care: None marital status: Current Living Situation: Spouse current occupational status: retired Feels Safe at Home: Yes Dental Care, Regularly: Yes Seatbelt Use: always Sunscreen Use: Yes Assistive Devices: Glasses Review of Systems Review of Systems: All systems reviewed & are unremarkable except as noted in HPI & below Physical Exam Constitutional: WD/WN, vitals as above Eyes: PERRL, conjunctivae normal, anicteric sclerae ENMT: external ear and nose normal, oropharynx normal Neck: trachea midline, no thyromegaly Respiratory: normal respiratory effort Cardiovascular: RRR, no murmur, no edema Gastrointestinal (Abdomen): normal bowel sounds, soft, nontender, no hepatosplenomegaly Musculoskeletal: Physical examination of the left shoulder reveals decreased range of motion and crepitis throughout. There is good strength with full can testing and external rotation. There is tenderness palpation along the anterior glenohumeral joint line. The right upper extremity is neurovascularly intact. Psychiatric: A+Ox3, euthymic affect Results & Data Results & Data ([facility]) Diagnostic Findings Radiographs of the left shoulder show osteoarthritis of the glenohumeral joint. There is joint space narrowing, osteophyte formation, and [id number] articulation. PG Care Time/CCT Total # of Minutes Spent Total Time Spent with Patient: Total time spent is greater than 50% in coordination of care (as documented) at patient's floor/unit and/or counseling patient: Coding Level of Care Code None Diagnoses DJD of left shoulder M19.012
[~2020-07-07 10:27] MED LIST: *ANCEF*ALLERGY NOTED TO ORDERED MEDICATION SCH; ACETAMINOPHEN 500 MG TAB PO SCH; BUPIVACAINE 0.5 % 5 MG/1 ML PF 10ML VIAL ONE; FAMOTIDINE 20 MG TAB PO SCH; GABAPENTIN 300 MG CAP PO SCH; LR 15ML/HR IV SCH; LR 60ML/HR IV SCH; ROPIVACAINE 0.5% HCL/PF 150 MG, BUPIVACAINE 0.5% MPF 30 ML, EPINEPHrine 30MG/30ML (OR U... INSTIL SCH; TRANEXAMIC ACID 1,000 MG **IV Intra-op IV SCH; TRANEXAMIC ACID 1,000 MG **IV Pre-op IV SCH; ceFAZolin 1000MG 1,000 MG/7.5 ML SYR IV SCH; dexAMETHasone 4 MG TAB PO SCH
[2020-07-07] MEDS ORDERED: MIDAZOLAM HCL 1 MG/ML 2ML VIAL ONE (10:57)
[2020-07-07] MEDS ORDERED: fentaNYL citrate 100 MCG/2 ML VIAL ONE (10:57)
[2020-07-07] MEDS ORDERED: ORTHO JOINT ANESTHETIC ONE (11:05)
[2020-07-07] MEDS ORDERED: ATROPINE SULFATE 0.1 MG/ML 10ML SYR IV PRN (12:09)
[2020-07-07] MEDS ORDERED: ePHEDrine sulfate 50 MG/ML AMP IV PRN (12:09)
[2020-07-07] MEDS ORDERED: ONDANSETRON INJ 2 MG/ML 2 ML VIAL IV PRN ×2 (12:09→15:40)
--- NOTE | 2020-07-07 12:22 | History & Physical Bridge Note ---
Date of Service July 07, 2020 History & Physical Bridge Note I have examined the patient, reviewed the History & Physical and in the interval since the performance of the History & Physical I have noted the following changes of clinical significance: no changes noted
[2020-07-07] MEDS ORDERED: ONDANSETRON INJ 2 MG/ML 2 ML VIAL ONE (13:22)
[2020-07-07] MEDS ORDERED: PROPOFOL IV EMULSION 10 MG/ML 20 ML VIAL IV ONE (13:22)
--- NOTE | 2020-07-07 13:58 | Operative Report ---
PG Post Operative Report Pre & Post Diagnosis Operation Date: 07/07/20 12:40 Pre-Op Diagnosis: Degenerative Joint Disease, Left Shoulder with tendinopathy of the long head of the biceps tendon Post-Op Diagnosis: Degenerative Joint Disease, Left Shoulder with tendinopathy of the long head of the biceps tendon I identified the patient and participated in the time-out.: Yes Procedure Operation Date: 07/07/20 12:40 Actual Procedures p Left Total Shoulder Arthroplasty with open biceps tenodesis as a distinct and separate procedure (modifier 59) (Left) - Vasyl Blanchard DO Surgeon Vasyl Blanchard DO Lap Winder Vasyl Contreras PAC Estimated Blood Loss 300 Findings Consistent with Post-Op Diagnosis Specimens Left humeral head Complications none Disposition Disposition: Recovery Room Indications Sadia is a pleasant 75-year-old female who is been dealing with chronic increasing left shoulder pain. X-rays and clinical examination were diagnostic for advanced osteoarthritis of the left shoulder. After failing conservative treatment, she elected proceed with a left total shoulder arthroplasty. Description of Procedure A CPT code modifier 59: The long head of the biceps tendon was enlarged and inflamed consistent with tendinopathy. A tenodesis was opted. This was a separate and distinct portion of the procedure. For these reasons, a CPT code modifier 59 will be added to this case. Implants used: I used a [employer] Comprehensive total shoulder arthroplasty system with a size 11 press fit micro humeral stem, a size 46 x 21 eccentric humeral head, and a size 2 glenoid with a trabecular metal peg. The glenoid was cemented in place with Palacos G cement. Sadia arrived at [facility], [place] for the above procedure. She was seen in the preoperative holding area and the operative extremity was identified and signed. She was given a preoperative antibiotic, TXA, and an interscalene nerve block. She was taken back to the operating room, laid on table in supine position, and put under general anesthesia. She was then put into the beachchair position. The shoulder was then prepped and draped in sterile fashion. A timeout was done and the patient and the operative extremity was properly identified. A deltopectoral approach was used. Dissection was taken down through the fascia and the deltoid was retracted laterally and the conjoined tendon was retracted medially. The anterior shoulder was exposed. The biceps groove was opened up and the biceps tendon was examined extensively. The biceps tendon demonstrated enlargement and inflammatory changes consistent with longstanding inflammation in the context of osteoarthritis. The long head of the biceps tendon was then tenodesed to the upper border of the pectoralis major. This was a separate and distinct portion of the procedure. The subscapularis was then released off the lesser tuberosity with a centimeter of cuff tissue remaining. The inferior capsule was released and the humeral head was dislocated. The rotator cuff was inspected and intact. A canal finding reamer was sent down the center of the humeral canal. Sequential reaming up to a size 11 reamer was done. Offset reamer a proximal humeral resection guide was placed. The proximal humerus was resected at 135 of inclination and 30 of retroversion. Inferior osteophytes were then removed and the glenoid was exposed. Time was spent doing an appropriate labral release. The glenoid measured to be a size 2. A [employer] Signature One guide was then attached onto the anterior rim of the glenoid. A 3.2 mm Steinmann pin was then placed in the total shoulder arthroplasty hole. The glenoid was then reamed with a propeller reamer. The central post cutter was then used to prepare for the central boss. The cannulated peripheral peg drill guide was then placed and 3 peg holes were drilled. The final size 2 glenoid was then cemented in place with Palacos G cement. Surrounding soft tissues were then injected with 100 cc of an orthopedic pain control cocktail. Once cement had dried the proximal humerus was once again exposed. Sequential broaching of the humerus up to a size 11 broach was done. Off that broach a size 46 x 21 eccentric humeral head was trialed. The shoulder was then reduced, brought through a full range of motion, and felt to be stable. The shoulder was then dislocated and the broach was removed. The final size 11 micro humeral stem implant was then impacted into place. A size 46 x 21 eccentric humeral head was then impacted onto the humeral stem. The shoulder was then reduced and once again brought through a full range of motion and felt to be stable. The subscapularis was then tenodesed back to the lesser tuberosity with transosseous FiberWire sutures and side to side sutures with the arm in 45 of external rotation. 2 sutures were placed in the lateral rotator interval. A dilute betadyne lavage was then done for 3 minutes. The joint was then irrigated with normal saline solution. Hemostasis was obtained. The interval was closed with 2-0 Vicryl suture. The skin was closed with 2-0 Vicryl and curtis. A Silverlon dressing was placed and the arm was rested in a regular arm sling. She was then extubated and transferred to a hospital bed. She was taken to the postanesthesia care unit in stable condition. She tolerated the procedure well. Vasyl Contreras PA-C, was present for the entire procedure. He was critical for patient positioning, prepping, draping, retraction exposure, wound closure and application of sterile dressing. I attest to the content of the Intraoperative Record and any orders documented therein. Any exceptions are noted below.
[2020-07-07] MEDS: fentaNYL citrate 100 MCG/2 ML VIAL IV PRN ×4 (14:36→14:51)
--- NOTE | 2020-07-07 14:41 | XRay Report ---
XR shoulder LT min 2V routine CLINICAL HISTORY: Post shoulder surgery COMPARISON: 10/28/2018 DISCUSSION: There are postsurgical changes of a total left shoulder arthroplasty. There are overlying skin curtis. There is gas in the soft tissues consistent with recent surgery. There is no dislocati on. IMPRESSION: Postsurgical changes of a total left shoulder arthroplasty. ACT 112: Negative or not required by law. Electronically signed by: Tacos Boone M.D. 07/07/2020 2:39 PM
--- NOTE | 2020-07-07 15:10 | Anesthesiology Progress Note ---
Date of Service July 07, 2020 Anesthesia Post Procedure Vital Signs Vital Signs: Temp Pulse Pulse Resp BP Pulse Ox 07/07/20 15:00 88 12 134/76 97 07/07/20 14:50 87 13 148/81 H 96 07/07/20 14:40 84 13 164/93 H 98 07/07/20 14:30 83 13 172/78 H 100 07/07/20 14:22 97.2 F L 85 20 183/124 H 100 07/07/20 10:45 97.7 F 77 16 144/78 H 97 Pain Intensity Left Shoulder: Pain Intensity: 3 Transfer of Care Handoff Completed per policy Notes Mental Status: alert / awake / arousable and participated in evaluation Patient Amnestic to Procedure: Yes Nausea / Vomiting: adequately controlled Pain: adequately controlled Airway Patency, RR, SpO2: stable & adequate BP & HR: stable & adequate Hydration State: stable & adequate Anesthetic Complications: no major complications apparent and Pt Satisfied with anesthetic care
[2020-07-07] MEDS ORDERED: METOCLOPRAMIDE HCL INJ 5 MG/ML 2 ML VIAL IV PRN (15:40)
[2020-07-07] MEDS ORDERED: bisacodyL 10 MG SUPP PR PRN (15:40)
[2020-07-07] MEDS ORDERED: DIPHENOXYLATE/ATROPINE 2.5/0.025MG TAB PO PRN (15:40)
[2020-07-07] MEDS ORDERED: HYDROmorphone INJ 0.5 MG/0.5 ML SYR IV PRN (15:40)
[2020-07-07] MEDS ORDERED: MAGNESIUM HYDROXIDE SUSP 30 ML UDC PO PRN (15:40)
[2020-07-07] MEDS ORDERED: NALOXONE HCL 0.4 MG/1 ML VIAL/CARP IV PRN (15:40)
[2020-07-07] MEDS ORDERED: oxyCODONE HCL IR 5 MG TAB (IMMEDIATE RELEASE) PO PRN (15:40)
[2020-07-07] MEDS: SODIUM CHLORIDE 0.9% 1000ML 1,000 ML IV SCH (15:40)
[2020-07-07] MEDS: KETOROLAC TROMETHAMINE 15 MG/ML VIAL IV SCH ×2 (16:37→21:03)
[2020-07-07] MEDS ORDERED: PRAMIPEXOLE DIHYDROCHLO 0.25 MG TAB PO SCH (21:00)
[2020-07-07] MEDS ORDERED: SENNA 8.6 MG TAB PO SCH (21:00)
[2020-07-07] MEDS: ceFAZolin 2000MG 2,000 MG/15 ML SYR IV SCH (21:03)
[2020-07-07] MEDS: GABAPENTIN 800 MG TAB PO SCH (21:03)
[2020-07-07] MEDS: ACETAMINOPHEN 500 MG TAB PO SCH (21:03)
[2020-07-07] MEDS: DOCUSATE SODIUM 100 MG CAP PO SCH (21:03)
[2020-07-08] MEDS: SODIUM CHLORIDE 0.9% 1000ML 1,000 ML IV SCH (01:51)
[2020-07-08] MEDS: ceFAZolin 2000MG 2,000 MG/15 ML SYR IV SCH (03:47)
[2020-07-08] MEDS: KETOROLAC TROMETHAMINE 15 MG/ML VIAL IV SCH ×2 (03:47→11:09)
[2020-07-08 06:10] LABS: Basophils # (auto) 0.02 K/uL (0-0.2); Basophils % (auto) 0.1 %; Eosinophils # (auto) 0.03 K/uL (0-0.5); Eosinophils % (auto) 0.2 %; Hematocrit (blood only) 34.2 % (37-47); Hemoglobin 11.1 g/dL (12.0-16.0); Immature Granulocytes # (auto) 0.05 K/uL (0.00-0.02); Immature Granulocytes % (auto) 0.3 %; Lymphocytes # (auto) 1.28 K/uL (1.2-3.4); Lymphocytes % (auto) 7.4 %; Mean Corpuscular Hemoglobin 31.6 pg (25-34); Mean Corpuscular Hgb Conc 32.5 g/dL (32-36); Mean Corpuscular Volume 97.4 fL (80-100); Mean Platelet Volume 9.9 fL (7.4-10.4); Monocytes # (auto) 0.86 K/uL (0.11-0.59); Neutrophils # (auto) 14.99 K/uL (1.4-6.5); Platelet Count 330 K/uL (130-400); RDW Coefficient of Variation 14.7 % (11.5-14.5); RDW Standard Deviation 52.4 fL (36.4-46.3); Red Blood Count 3.51 M/uL (4.2-5.4); White Blood Count 17.23 K/uL (4.8-10.8)
[2020-07-08] MEDS: ACETAMINOPHEN 500 MG TAB PO SCH (06:17)
[2020-07-08] MEDS ORDERED: LEVOTHYROXINE SODIUM 88 MCG TABLET PO SCH (06:30)
[2020-07-08 06:38] LABS: BUN Creatinine Ratio 18.6 (10-20); Calcium 7.8 mg/dl (8.5-10.1); Creatinine Clr Calc Pharmacy 26.4 ml/min; Est GFR (African American) 40.8; Est GFR (Non-African American) 35.2; Potassium 4.3 mmol/L (3.5-5.1)
--- NOTE | 2020-07-08 06:59 | Orthopedic Progress Note ---
Date of Service July 08, 2020 Assessment & Plan (1) Status post replacement of left shoulder joint: Overall she is doing well. She denies any much pain in the left shoulder. She will be seen by physical therapy this morning for ambulation and range of motion exercises. She can be discharged home later today. She will follow-up with orthopedics in 2 weeks. Present on Admission?: Yes Admission and Anticipated Discharge Date Admission Date: July 07, 2020 Roger Mccullough was seen and examined at bedside this morning. Overall she is doing well. She is not having any pain in the left shoulder. She was able to get some sleep last night. She has no complaints. Physical Exam Physical Exam: On physical examination of the left shoulder, the dressing is clean and dry. The nerve block is still in effect and I am unable to do a neurologic examination. She is wearing her sling as instructed. Results & Data ([facility]) Vital Signs (Past 12 Hours) Vital Signs Temp Pulse Resp BP Pulse Ox 07/08/20 03:17 36.5 C 73 16 119/66 94 07/07/20 23:48 36.4 C L 70 16 92/57 L 92 Laboratory Results H & H 05/31/20 07/08/20 Range/Units 10:51 05:58 Hgb 14.0 11.1 L (12.0-16.0) g/dL Hct 41.4 34.2 L (37-47) % Coagulation 05/31/20 Range/Units 10:51 INR 1.2 H (0.9-1.1) Diagnostic Findings Postoperative x-rays of the left shoulder show the prosthesis to be in anatomic alignment without any evidence of fracture, dislocation, or loosening. PG Care Time/CCT Total # of Minutes Spent Total Time Spent with Patient: Total time spent is greater than 50% in coordination of care (as documented) at patient's floor/unit and/or counseling patient: Coding Level of Care Code None Diagnoses Status post replacement of left shoulder joint Z96.612
--- NOTE | 2020-07-08 07:01 | Discharge Summary ---
Date of Service July 08, 2020 Admission HPI Per Admitting Provider Sadia is a pleasant 75-year-old female who is been dealing with chronic increasing left shoulder pain. X-rays and clinical examination have been diagnostic for advanced osteoarthritis of the left shoulder. After failing conservative treatment, she has elected proceed with a left total shoulder arthroplasty. Principal Diagnosis Left shoulder replacement Discharge Data Allergies Allergy/AdvReac Type Severity Reaction Status Date / Time Penicillins Allergy Intermediate Hives Verified 07/07/20 10:55 Sulfa (Sulfonamide Allergy Intermediate Hives Verified 07/07/20 10:55 Antibiotics) Consultations 07/07/20 15:40 Consult Case Management - Discharge Planning Routine Procedures Performed Operation Date: 07/07/20 12:40 Actual Procedures p Left Total Shoulder Arthroplasty(Left) - Vasyl Blanchard DO Ordered Studies 07/07/20 05:00 US - OR guided needle placemen Routine Hospital Course (1) Status post replacement of left shoulder joint: On July 07, 2020 Sadia arrived at [facility] and underwent a left shoulder replacement without complication. She had a general anesthetic and a left interscalene nerve block. Postoperatively she was placed in a sling and transferred to the general orthopedic floors. Her hospital course was uneventful. On postop day #1 her H&H was stable and her pain was well controlled. She was able to participate well with physical therapy doing ambulation and range of motion exercises. She was then discharged home. She will follow-up with orthopedics in 2 weeks. Total Time Total Time Spent Total Time Spent (In Minutes): 20 Discharge Plan Discharge Items Patient Disposition: Home - Home Health Services Reason For Visit: Degenerative Joint Disease, Left Shoulder Discharge Diagnosis: Left shoulder replacement Activity: As commented below Non-emergency contact: Surgeon Call non-emergency contact if: your wound has increased redness and your wound has increased drainage Follow-up/Referrals: Nikia Parks MD [Primary Care Provider] - Diet: Regular Addtl Attending Provider Instructions: Activity and Therapy Recommendations: * If you are using [facility] then therapy will be provided at your home until they feel you have accomplished all of your goals. * If you are using [facility] then Physical Therapy will be provided until they feel you are ready to start Outpatient Physical Therapy. * If you are not using home therapy then Outpatient Physical Therapy should start about 3-5 days from your day of surgery. Therapy will last about 8-12 weeks * Wear your sling for 3 weeks, unless otherwise instructed. You may remove your sling to shower and to dress, but otherwise, you should be in your sling at all times, including while sleeping * The shoulder replacement is very stable and you can use your hand while in the sling * You were shown a series of exercises in the hospital. Do these exercises daily including the exercises you were shown in physical therapy. Medications: * Narcotic You will likely be sent home from the hospital with a prescription for the narcotic pain medication that worked best throughout your stay. * Other medications may be prescribed for specific circumstances. If you have any questions, please call the office at . * Resume previous home medications unless otherwise instructed Dressing Care: Leave the Silverlon dressing in place for 7 days. After 7 days you may remove the dressing. If the incision is not draining then you may leave the curtis open to air. If there is a little bit of drainage or if the curtis are getting stuck on your clothing then cover the incision with a dry dressing. The curtis will be removed at your 2 week follow-up appointment. Showering: You may shower with the Silverlon dressing in place. Do not let the shower spray hit the dressing directly. Pat the Silverlon dressing dry. If the dressing becomes wet underneath, then simply remove the dressing. Keep the incision dry until you are 7 days out from the day of surgery. After 7 days you may remove the Silverlon dressing and shower with the curtis exposed. Let soapy water run over the curtis and pat them dry. Do not scrub or soak the incision. Things To Watch For: * Drainage from the incision site that occurs more than one week after your surgery. * Increased redness at the incision site. * Fever above 102 degrees Fahrenheit. * Unusual chest pain or shortness of breath. * Call [facility] at with any of the above problems Follow-Up Visit: Follow-up with Dr. Blanchard's PA (Vasyl Contreras) 2-3 weeks after your day of surgery. He will remove your curtis and answer any questions. If you have any additional questions or concerns, Dr Blanchard is usually in the office at the same time and will be available An appointment was probably scheduled when you signed-up for surgery in the office. If you have any questions call More detailed instructions as well as Frequently Asked Questions were provided in a folder by our office when you signed-up for surgery. Please review these instructions when you get home. If you have any further questions or concerns, please feel free to call the office at [phone] Pending Studies at Discharge: No Stand-Alone Forms: [facility], Smoking Cessation Medications and DC Order Prescriptions: Continued diphenoxylate-atropine 2.5-0.025 mg tablet 1 tab PO QID PRN (Reason: diarrhea) Qty: 30 RF: 1 ergocalciferol (vitamin D2) [Vitamin D2] 1,250 mcg (50,000 unit) capsule 50,000 unit PO MONTHLY Qty: 12 RF: 1 levothyroxine [Synthroid] 88 mcg tablet 88 mcg PO QAM Qty: 90 RF: 3 Xarelto 2.5 mg tablet 2.5 mg PO BID Qty: 60 RF: 7 lisinopril 5 mg tablet 5 mg PO DAILY Qty: 90 RF: 3 clopidogrel 75 mg tablet 75 mg PO DAILY Qty: 30 RF: 5 gabapentin 800 mg tablet 800 mg PO TID Qty: 90 RF: 5 duloxetine [Cymbalta] 60 mg capsule,delayed release(DR/EC) 60 mg PO QAM Qty: 30 RF: 5 pramipexole [Mirapex] 0.25 mg tablet 0.25 mg PO PM Qty: 30 RF: 5 estradiol [Estrace] 0.01 % (0.1 mg/gram) cream 1 gm PV 2XWK Qty: 42.5 RF: 5 rosuvastatin 5 mg tablet 5 mg PO Q OTHER DAY RF: 0 cyanocobalamin (vitamin B-12) [Vitamin B-12] 1,000 mcg Tablet 1,000 mcg PO WK RF: 0 hydrocodone-acetaminophen [Atlantic] 5-325 mg tablet 1 tab PO TID PRN (Reason: pain) RF: 0 acetaminophen [Mapap (acetaminophen)] 325 mg Tablet 650 mg PO Q6H PRN (Reason: pain) Qty: 30 RF: 0 Discharge Orders: Discharge Order (Routine); Ordered 07/08/20 Ordered By: Vasyl Blanchard Admission Data Admit Date/Time: 07/07/20 14:19 Attending Provider: Vasyl Blanchard Admit Provider: Vasyl Blanchard Primary Care Provider: Nikia Parks Coding Level of Care Code D/C Day Management <30 mins Diagnoses Status post replacement of left shoulder joint Z96.612
[2020-07-08] MEDS ORDERED: dexAMETHasone 4 MG TAB PO SCH (08:00)
[2020-07-08] MEDS ORDERED: MULTIVITAMIN TAB PO SCH (09:00)
[2020-07-08] MEDS ORDERED: CLOPIDOGREL BISULFATE 75 MG TAB PO SCH (09:00)
[2020-07-08] MEDS ORDERED: ROSUVASTATIN CALCIUM 5 MG TAB PO SCH (09:00)
[2020-07-08] MEDS ORDERED: lisinopril 5 MG TAB PO SCH (09:00)
[2020-07-08] MEDS ORDERED: DULoxetine HCL 60 MG CAP PO SCH (09:00)
[2020-07-08] MEDS ORDERED: RIVAROXABAN 2.5 MG TAB PO SCH (09:00)
[2020-07-08] MEDS: GABAPENTIN 800 MG TAB PO SCH (09:15)
[2020-07-08] MEDS: DOCUSATE SODIUM 100 MG CAP PO SCH (09:15)
[2020-08-01] MEDS ORDERED: ERGOCALCIFEROL 50,000 UNITS 1250 MCG CAP PO SCH (09:00)
== END 2020-07-08 13:29 | disposition home health service (06) | DRG 483 ==
LOC: ASU 10:27 → 3E 14:19

== ENCOUNTER 2022-10-24 05:26 | Inpatient (IN) ==
--- NOTE | 2022-10-14 09:03 | Anesthesiology Consultation ---
Date of Service October 14, 2022 Assessment & Plan (1) Encounter for pre-operative examination: - COVID screening: Per assessment on 10/01: No known COVID-19 positive contacts or current COVID-19 related symptoms. Travel screen negative. Patient vaccinated. At surgeon discretion if preop Covid testing being done. - [employer] Gatherer office visit (09/05/22): "Multiple drug allergies: We discussed the most people lose their antibiotic allergies over time and I recommend that we perform testing to penicillin as well as sulfa drugs. We will need to do these on different days. We will start with the penicillin testing and we will bring her back once this is scheduled. Regarding the Cipro and Flagyl, I would not list these is true allergies. She received a 7-day course of this after her reaction and tolerated that. Typically, reactions occur 9 to 10 days into the course that are usually mild and not urticarial are often triggered by the underlying infection itself. If she needs Cipro or Flagyl again in the future I would not hesitate to give it. I would consider putting her on a daily cetirizine for the duration of the course, however and this would prevent these types of nonspecific reactions from occurring again." Chart Review Chart Review: Acceptable Risk for Surgery and Patient NOT seen in Pre Admission Testing History Surgery Operation Date: 10/24/22 07:00 Proposed Procedures p Laparoscopic Assisted Sigmoid Colon Resection, Possible Open - Jj Nick MD, FACS Height/Weight Height: 5 ft 2.25 in Weight: 63.503 kg Allergies Allergy/AdvReac Type Severity Reaction Status Date / Time Penicillins Allergy Intermediate Hives Verified 10/01/22 12:46 Sulfa (Sulfonamide Allergy Intermediate Hives Verified 10/01/22 12:46 Antibiotics) Medications Home Medications Medication Instructions Recorded Confirmed Last Taken cyanocobalamin (vitamin B-12) 1,000 mcg PO WK 07/02/18 10/01/22 07/03/20 1,000 mcg tablet (Vitamin B-12) ergocalciferol (vitamin D2) 1,250 50,000 unit PO MONTHLY #12 caps 10/16/21 10/01/22 Unknown mcg (50,000 unit) capsule (Vitamin D2) gabapentin 800 mg tablet 800 mg PO TID #270 tabs 01/24/22 10/01/22 Unknown rosuvastatin 5 mg tablet 5 mg PO Q OTHER DAY #45 tabs 02/06/22 10/01/22 Unknown diphenoxylate-atropine 2.5 1 tab PO QID PRN diarrhea #30 tabs 08/27/22 10/01/22 Unknown mg-0.025 mg tablet ciprofloxacin HCl 500 mg tablet 500 mg PO BID #2 tabs 09/24/22 10/01/22 Unknown (Cipro) metronidazole 500 mg tablet 500 mg PO .COMPLEX #3 tabs 09/24/22 10/01/22 Unknown clopidogrel 75 mg tablet 75 mg PO QAM 10/01/22 10/01/22 Unknown duloxetine 30 mg capsule,delayed 30 mg PO QAM 10/01/22 10/01/22 Unknown release duloxetine 60 mg capsule,delayed 60 mg PO QAM 10/01/22 10/01/22 Unknown release (Cymbalta) levothyroxine 88 mcg tablet 88 mcg PO QAM 10/01/22 10/01/22 Unknown lisinopril 5 mg tablet 5 mg PO QAM 10/01/22 10/01/22 Unknown clotrimazole-betamethasone 1 1 applic topical BID PRN Rash #30 10/03/22 Unknown %-0.05 % topical cream grams pramipexole 0.25 mg tablet 0.25 mg PO PM #90 tabs 10/03/22 Unknown (Mirapex) rivaroxaban 2.5 mg tablet (Xarelto) 2.5 mg PO BID #180 tabs 10/03/22 Unknown hydrocodone 5 mg-acetaminophen 325 1 tab PO QID PRN pain #120 tabs 10/11/22 Unknown mg tablet Past Medical History Medical History Collagenous colitis Depression Diverticular disease GERD (gastroesophageal reflux disease) History of hepatitis B Contracted after blood transfusion for ectopic > since "cleared" per pt History of hepatitis C Contracted after blood transfusion for ectopic > 6 months Harvoni Hx of breast cancer Left breast (2002) Hyperlipidemia Hypertension Hypothyroidism Osteopenia pt. declines treatment at this time PAD (peripheral artery disease) S/P angioplasty/stenting of left superficial femoral artery (2018) > stent occlusion (2019) - treated with atherectomy, restenting. Was started on Xarelto due to heavy thrombus burden, also on Plavix. Following with Dr. Maynard and Dr. Tee Dickson disease Restless leg syndrome Temporomandibular joint disorder Past Family History Family History Mother Diabetes Depression Metastatic neoplastic disease Cancer Hypertension Father Depression Cardiac disorder Myelodysplasia (myelodysplastic syndrome) Cancer Other No family history of adverse response to anesthesia Denies family history of Ovarian cancer Breast cancer Colorectal cancer Uterine cancer Past Surgical History Surgical History H/O angioplasty SFA x 2018 and 2019 H/O breast reconstruction H/O foot surgery LEFT FOOT NEEDLE REMOVED H/O hemorrhoidectomy H/O mastectomy LEFT History of arthroscopy right knee History of cardiac cath 09/2019 (NO STENTS) History of cataract surgery RT/LEFT History of colonoscopy History of esophagogastroduodenoscopy (EGD) History of hysterectomy History of laparoscopy HISTORY OF ECTOPIC X2 History of tonsillectomy History of tooth extraction Status post replacement of left shoulder joint (07/2020) Social History Smoking Status: Former smoker tobacco type: cigarettes Do You Dip or Chew Tobacco: No Smoking End Date: quit 1973 Hx Alcohol Use: Yes Alcohol type: wine alcohol intake frequency: 0-2 drinks per day Hx Substance Use: No substance use type: does not use Lab Results Anesthesia Preop Results Results Anesthesia Widget: WBC 13.90 K/ul (4.8-10.8) H 10/09/22 Hgb 15.3 g/dl (12.0-16.0) 10/09/22 Hct 46.0 % (37.0-47.0) 10/09/22 Plt 493 K/uL (130-400) H 10/09/22 Na 135 mmol/L (136-145) L 10/09/22 K 4.5 mmol/L (3.5-5.1) 10/09/22 Cl 103 mmol/L (98-107) 10/09/22 CO2 26 mmol/L (21-32) 10/09/22 BUN 21 mg/dl (6-23) 10/09/22 Creat 0.96 mg/dl (0.6-1.2) 10/09/22 Glucose Level 82 mg/dl (70-99(Fasting)) 10/09/22 Testing Electrocardiogram Date: 10/09/22 NSR at 75bpm. PRAVEENA. No significant change compared to 08/30/19 per coal tower operator comparison. Chest X-Ray Date: 10/09/22 FINDINGS: Cardiac mediastinal and hilar silhouettes are within normal limits. No pneumothorax, pleural effusion, airspace consolidation or overt pulmonary edema. Degenerative changes of the spine and right shoulder. Left shoulder arth roplasty. Breast implants. Surgical clips project over the left breast and chest wall. IMPRESSION: No acute process.
[2022-10-24] MEDS ORDERED: LR 15ML/HR IV SCH (06:00)
--- NOTE | 2022-10-24 06:17 | History & Physical Bridge Note ---
Date of Service October 24, 2022 History & Physical Bridge Note I have examined the patient, reviewed the History & Physical and in the interval since the performance of the History & Physical I have noted the following changes of clinical significance: no changes noted at bedside all question answered
[2022-10-24] MEDS ORDERED: ONDANSETRON INJ 2 MG/ML 2 ML VIAL ONE ×2 (06:38→10:41)
[2022-10-24] MEDS ORDERED: fentaNYL citrate 100 MCG/2 ML VIAL ONE ×3 (06:38→08:31)
[2022-10-24] MEDS ORDERED: DEXAMETHASONE SOD INJ 4 MG/ML VIAL ONE (06:38)
[2022-10-24] MEDS ORDERED: PROPOFOL IV EMULSION 10 MG/ML 20 ML VIAL IV ONE (06:38)
[2022-10-24] MEDS ORDERED: LIDOCAINE 2% MPF LOCAL 5 ML VIAL INFIL ONE (06:43)
[2022-10-24] MEDS ORDERED: ACETAMINOPHEN 1000 MG/100 ML IV IV ONE (06:44)
[2022-10-24] MEDS ORDERED: BUPIVACAINE 0.5 % 5 MG/1 ML MPF 30ML VIAL ONE (06:55)
[2022-10-24] MEDS ORDERED: HYDROmorphone INJ 1 MG/ML SYRINGE ONE (07:22)
[2022-10-24] MEDS ORDERED: ROCURONIUM BROMIDE 10 MG/ML 5 ML VIAL IV ONE ×2 (07:36→10:26)
[2022-10-24] MEDS ORDERED: cefOXitin 2,000 MG in DEXTROSE 5% 50 ML IV STA (08:06)
[2022-10-24] MEDS ORDERED: ATROPINE SULFATE 0.1 MG/ML 10ML SYR IV PRN (08:34)
[2022-10-24] MEDS ORDERED: ONDANSETRON INJ 2 MG/ML 2 ML VIAL IV PRN ×2 (08:34→14:10)
[2022-10-24] MEDS ORDERED: ePHEDrine sulfate 50 MG/ML AMP IV PRN (08:34)
[2022-10-24] MEDS ORDERED: SUGAMMADEX SODIUM 200 MG/2 ML VIAL IV ONE (10:25)
[2022-10-24] MEDS ORDERED: PHENYLEPHRINE 100MCG/ML 5ML SYR ONE (10:27)
--- NOTE | 2022-10-24 12:11 | Post Operative Brief Note ---
Immediate Post Op Note v1 Date of Surgery October 24, 2022 Pre & Post Diagnosis Operation Date: 10/24/22 07:00 Pre-Op Diagnosis: Diverticulosis Post-Op Diagnosis: Diverticulosis I identified the patient and participated in the time-out.: Yes Procedure Operation Date: 10/24/22 07:00 Actual Procedures p Laparoscopic Assisted to Open Sigmoid Colon Resection(Not Applicable) - Jj Nick MD, FACS Surgeon Jj Nick MD, FACS Motorsports Technician viktoria echevarria Estimated Blood Loss 250 Findings Consistent with Post-Op Diagnosis Drains Rocky Drain, Abarca Catheter and Flori Drain
[2022-10-24] MEDS: fentaNYL citrate 100 MCG/2 ML VIAL IV PRN ×4 (12:37→12:55)
[2022-10-24] MEDS: HYDROmorphone INJ 1 MG/ML SYRINGE IV PRN ×2 (13:08→13:13)
--- NOTE | 2022-10-24 13:18 | Anesthesiology Progress Note ---
Date of Service October 24, 2022 Anesthesia Post Procedure Vital Signs Vital Signs: Temp Pulse Pulse Resp BP Pulse Ox O2 Del Method 10/24/22 13:05 96 H 18 127/89 96 Nasal Cannula 10/24/22 12:55 91 H 15 139/88 92 Room Air 10/24/22 12:45 88 14 164/80 H 98 Room Air 10/24/22 12:35 83 13 162/79 H 98 Oxymask 10/24/22 12:27 36.3 C L 85 16 146/103 H 100 Oxymask 10/24/22 06:26 36.6 C 79 20 134/88 96 Room Air O2 Flow Rate 10/24/22 13:05 2 10/24/22 12:55 10/24/22 12:45 10/24/22 12:35 5 10/24/22 12:27 5 10/24/22 06:26 Pain Intensity Abdomen: Pain Intensity: 5 Transfer of Care Handoff Completed per policy Notes Mental Status: alert / awake / arousable and participated in evaluation Nausea / Vomiting: adequately controlled Pain: adequately controlled Airway Patency, RR, SpO2: stable & adequate BP & HR: stable & adequate Hydration State: stable & adequate Anesthetic Complications: no major complications apparent and Pt Satisfied with anesthetic care
[2022-10-24] MEDS ORDERED: MoRPHine SULFATE 4 MG/ML 1 ML CARP\\VIAL IV PRN ×2 (14:10→15:13)
[2022-10-24] MEDS ORDERED: ACETAMINOPHEN 325 MG TAB PO PRN (14:10)
[2022-10-24] MEDS ORDERED: oxyCODONE/ACETAMINOPHEN 5mg/325mg TAB PO PRN (14:10)
--- NOTE | 2022-10-24 14:42 | Operative Report ---
PG Post Operative Report Pre & Post Diagnosis Operation Date: 10/24/22 07:00 Pre-Op Diagnosis: Diverticulosis Post-Op Diagnosis: Diverticulosis I identified the patient and participated in the time-out.: Yes Procedure Operation Date: 10/24/22 07:00 Actual Procedures p Open Sigmoid Colon Resection(Not Applicable) - Jj Nick MD, ALEXANDER s Laparoscopic Assisted to(Not Applicable) - Jj Nick MD, FACS Patient was brought into the operating theater general endotracheal anesthesia Abarca catheter inserted systemic antibiotics on board patient identified after the abdomen was prepped Betadine solution properly draped a timeout was had this point we made a small incision supraumbilically sufficient to accommodate a Veress needle CO2 insufflated about 10 followed by 5 mm trocar followed by the scope point entry inspected no injury identified at this point we turned our attention to the pelvic area patient has significant amount of colon and fixed to the anterior abdominal wall down in the pelvic area. Grossly very thickened and this continued down towards the pelvic inlet at this point placed a 5 mm right lower quadrant trocar site under direct visualization a 5 mm left upper quadrant trocar site and we started to dissect out starting laterally down towards the white line of Toldt which the area was. To be free the descending colon there. Grossly normal although patient has significant diverticular disease we then following this line we dissected on the retroperitoneal lateral to the distal descending sigmoid area which was markedly thickened and continue freeing up significant amount of redundant colon to the anterior abdominal wall in the pelvic area and lateral abdominal wall we used scissor and electrocautery prior to the use of the harmonic scalpel and were able then to free up significant adhesions to the mesentery of this colon as we continued down we needed to free up the small bowel which is strictly adherent on the pelvic area by patient is a Trendelenburg position and reversing to the right side bleeding was encountered as we took the adhesions to the mesentery of the colon and this was controlled with clips and electrocautery generalized oozing was appreciated around this area benign nothing significant that we were able then to control and after dissecting this we retracted medially the sigmoid colon and towards the pelvic brim and further down in the left lateral area we were able to identify iliac artery and stayed away from the plane of dissection as we were then more medially and inferior we identified the ureter and avoided completely at this point was felt we had enough visualization of the distal sigmoid colon and we were able to see that we were free from any diverticular disease in the upper rectal area we created a window in the mesentery of the colon below what we felt was free of any diverticular issues and by mobilizing this and going towards the left gutter area further we felt we had enough mobility to bring the colon down to the on the pelvic brim once we created a window in the mesentery just at this level we used a blue load of DANIEL and divided the colon then we took down the mesentery using a combination of ligature harmonic scalpel and clips once we have significantly mobilized the colon which was grossly approximating approximately a foot and a half we were in the upper rectum I felt at this time that we had enough mobility that we could remove the specimen divide the specimen distal to the end of the diverticular issues by making an incision supraumbilically linearly we made an incision approximately 6 cm deep with subcutaneous tissue went and to the linea alba where the patient had previous surgery to and hysterectomy we entered the peritoneal cavity we placed some packs then [place] we are able at this time to pull out through the wound the line of division of the descending colon up to the rectal area and the strut point a right angle intestinal clamp was placed in the proximal rectum dividing it to an area which felt enough viable tissue was appreciated and free of any diverticular issues we then oversewed the staple line proximally on the descending colon area with 3-0 interrupted silk suture and we started our anastomosis by placing silk suture to stay sutures externally on the side to end anastomosis we were doing this we noticed that the patient had some small amount of fecal material proximal to anastomosis in the area that was consistent with more diverticular disease even though grossly could not appreciate anything prior to that therefore we resected another 2 to 3 inches of distal colon with DANIEL oversewed the staple line and placed and proceeded with anastomosis using 3- 0 silk outer layer 3 oh: Inner layer and palpated the anastomosis which is patent piece of fatty tissue around that area was then laid on top of the anastomosis and held in place with some 3-0 silk suture the area was then checked for stasis appears satisfactory we then closed the wound with 0 chromic suture for the peritoneum #1 PDS for the anterior fascia at this point we noticed that we wanted to put up a drain in the pelvis so we opened up the incision again made an incision and opening of the left lower quadrant enough to accommodate a 19 Rocky drain that was placed the left lower quadrant skin and taken down and placed in the pelvis at this point we then closed the incision again with 0-0 chromic suture for the peritoneum and #1 PDS continuous for the fascia quarter inch [place] was placed in the subcu attached to the either end with 2-0 silk suture curtis for skin edges we then closed the supraumbilical incision and actually we once went in was a 5 mm we converted to a 12 mm so we could accommodate the Endo DANIEL and the fascial suture will Vicryl [id number] was used to close the fascia curtis were used for the rest of the trocar sites the procedure was tolerated well by the patient estimate blood loss approximately 200 cc 250 mostly from generalized oozing and retroperitoneal the patient was taken recovery room in good condition I tried calling her Melvin after surgery at [phone] and left the recorder and there was no answer Education Supervisor Connie Singh physician billing assistant and Salvatore Silverio DO Surgeon Jj Nick MD, FACS Education Supervisor salvatore echevarria Estimated Blood Loss 250 Findings Consistent with Post-Op Diagnosis Significant diffuse diverticular disease sigmoid colon descending colon down to the rectum Specimens Descending colon and sigmoid colon Drains 19 Rocky stab wound left lower quadrant down the pelvis Complications None Indications Recurrent diverticular disease Description of Procedure merda I attest to the content of the Intraoperative Record and any orders documented therein. Any exceptions are noted below.
[2022-10-24] MEDS: CLINDAMYCIN/D5W 600 MG/50 ML BAG IV SCH ×2 (15:10→22:25)
[2022-10-24] MEDS ORDERED: MoRPHine SULFATE 2 MG/ML CARP IV PRN (15:11)
[2022-10-24] MEDS: ACETAMINOPHEN 1,000 MG/100 ML VIAL IV SCH (15:47)
[2022-10-24] MEDS: D5W AND 1/2NSS + 20MEQ KCL 20 MEQ/1,000 ML BAG IV SCH (16:05)
[2022-10-24] MEDS ORDERED: LACTATED RINGER'S 500 ML IV ONE ×2 (16:18→23:36)
--- NOTE | 2022-10-24 16:18 | Hospitalist Consultation ---
Date of Consultation October 24, 2022 Assessment & Plan (1) S/P partial resection of colon: -Pain control, perioperative abx, DVT PPX per the primary team -The patient is currently afebrile, hemodynamically stable but with soft BP, and tachycardic with HR in the low 100's -The patient was reported to have approximately 250 cc of EBL during her procedure and was noted to be hypotensive as low as 71/49 -Her hypotension is likely multifactorial including blood, effects of anesthesia and analgesia, and taking her Lisinopril this am prior to her procedure -Currently has D5W-1/2 NSS with 20 meq KCL running at 125 mL/hr per the primary team, would continue this and will brazer electronic her a 500 mL bolus of LR now -The patient is currently asymptomatic and comfortable at rest in bed -Will obtain STAT CBC, CMP, Lactate, and ECG for further evaluation -Will transfuse for Hgb less than 7 or substantial Hgb drop from baseline -Lisinopril was discontinued for now -Monitor am labs as ordered by the primary team -We will continue to follow (2) Postoperative hypotension: -See S/P partial resection of the colon (3) Tachycardia: -See S/P partial resection of the colon (4) Depression: -Continue cymbalta (5) Hypothyroidism: -Continue levothyroxine (6) PAD (peripheral artery disease): -Continue to hold Plavix and Xarelto until the primary team is comfortable with her bleeding risk -Contique BL SCDs as she has a history of previous blood clots (7) Hyperlipidemia: -Continue statin (8) Hypertension: -Hold lisinopril with her recent hypotension (9) Restless leg syndrome: -Continue Pramipexole and Gabapentin Plan The patient was discussed with Dr. Cortes at the time of the consult Supervising Physician Co-Signing Physician Notes I personally saw and examined the patient. I verified all flores points and agree with Nilton Hedrick PA-C with the following exceptions and/or additions: 77-year-old female postop day 0 elective open sigmoid colon resection. Medicine consulted for medical management. Low blood pressure and tachycardia postsurgery. She denies any dizziness while lying down in bed. She reports taking her lisinopril this morning. Patient seen after lactated Ringer bolus. O/E A&Ox3, HS RRR, Chest CTAB, Abdo SNT A/P Postoperative hypotension - hold Lisinopril, improved following LR bolus. Monitor to make sure MAP > 65. Otherwise plan as above History of Present Illness Reason for Consultation: Post-op medical management Requesting Physician: Jj Nick MD, FACS Attending Physician: Dr. Last Cortes History of Present Illness Sadia is a 77 year old female with a PMH significant for recurrent diverticulitis, HTN, hyperlipidemia, GERD, PAD (on xarelto and plavix), hypothyroidism, depression, hepatitis B & C from previous blood transfusion S/P 6 months of [facility] with clearance, and RSL who presented to the [facility] OR on 10/24/22 for scheduled Open Sigmoid Colon Resection due to recurrent diverticulitis with Dr. Nick. Per the post-op report, there were no reported intraoperative complications, EBL was listed as 250 cc, anesthesia type was not reported. Per review of the patient's vitals since arrival she is noted to be hypotensive with blood pressures of 71/49, afebrile, and tachycardic with HR in the low 100's to 110's. Her most recent BP prior to my exam was listed as 91/61 with a HR of 113 and currently on 2L NC. At the time of the exam the patient was resting in bed in no acute distress. She states that she feels very tired after her procedure, her abdominal pain is currently well-controlled. I re-cycled her blood pressure at the start of the my exam and it was 90/52, the patient is still tachycardic with HR's in the low 100's. She was on 1L NC at the start of my exam. I turned her O2 off and she remained stable on RA throughout my exam. When asked about medications she took this am prior to arrival she listed gabapentin, Synthroid, and lisinopril. She forgot that the Lisinopril was for her HTN and that it should have been held today. She did confirm that she has been off her Xarelto since 10/21 and Plavix since 10/19. At the time of my exam she denies fever, chills, lightheadedness, dizziness, changes in vision, hearing, taste, and smell, chest pain, SOB, nausea, vomiting, dysuria, hematuria, melena, and recent trauma. I instructed she and her nurse that the patient she be careful getting out of bed overnight to avoid orthostatic hypotension and syncope with her soft BP's. I explained that we will be getting some lab work to make sure everything is stable and the patient was in agreement. Please refer to Dr. Cortes's attestation for any changes to the treatment plan Allergies Allergy/AdvReac Type Severity Reaction Status Date / Time Penicillins Allergy Intermediate Hives Verified 10/24/22 05:46 Sulfa (Sulfonamide Allergy Intermediate Hives Verified 10/24/22 05:46 Antibiotics) Home Medications Medication Instructions Recorded Confirmed Type cyanocobalamin (vitamin B-12) 1,000 mcg PO WK 07/02/18 10/30/22 History 1,000 mcg tablet (Vitamin B-12) ergocalciferol (vitamin D2) 1,250 50,000 unit PO MONTHLY #12 caps 10/16/21 10/30/22 Rx mcg (50,000 unit) capsule (Vitamin D2) gabapentin 800 mg tablet 800 mg PO TID #270 tabs 01/24/22 10/30/22 Rx rosuvastatin 5 mg tablet 5 mg PO Q OTHER DAY #45 tabs 02/06/22 10/30/22 Rx diphenoxylate-atropine 2.5 1 tab PO QID PRN diarrhea #30 tabs 08/27/22 10/30/22 Rx mg-0.025 mg tablet clopidogrel 75 mg tablet 75 mg PO QAM 10/01/22 10/30/22 History duloxetine 30 mg capsule,delayed 30 mg PO QAM 10/01/22 10/30/22 History release duloxetine 60 mg capsule,delayed 60 mg PO QAM 10/01/22 10/30/22 History release (Cymbalta) levothyroxine 88 mcg tablet 88 mcg PO QAM 10/01/22 10/30/22 History lisinopril 5 mg tablet 5 mg PO QAM 10/01/22 10/30/22 History clotrimazole-betamethasone 1 1 applic topical BID PRN Rash #30 10/03/22 10/30/22 Rx %-0.05 % topical cream grams pramipexole 0.25 mg tablet 0.25 mg PO PM #90 tabs 10/03/22 10/30/22 Rx (Mirapex) rivaroxaban 2.5 mg tablet (Xarelto) 2.5 mg PO BID #180 tabs 10/03/22 10/30/22 Rx hydrocodone 5 mg-acetaminophen 325 1 tab PO QID PRN pain #120 tabs 10/11/22 10/30/22 Rx mg tablet estradiol 0.01% (0.1 mg/gram) 1 g vaginal .COMPLEX #42.5 grams 10/18/22 10/30/22 Rx vaginal cream (Estrace) Patient History Medical History (Updated 10/25/22 @ 15:43 by Parveen Jorge MD) Collagenous colitis Depression Diverticular disease GERD (gastroesophageal reflux disease) History of hepatitis B Contracted after blood transfusion for ectopic > since "cleared" per pt History of hepatitis C Contracted after blood transfusion for ectopic > 6 months [place]it[place] Hx of breast cancer Left breast (2002) Hyperlipidemia Hypertension Hypothyroidism Osteopenia pt. declines treatment at this time PAD (peripheral artery disease) S/P angioplasty/stenting of left superficial femoral artery (2018) > stent occlusion (2019) - treated with atherectomy, restenting. Was started on Xarelto due to heavy thrombus burden, also on Plavix. Following with Dr. Maynard and Dr. Oliveira Raynauds disease Restless leg syndrome Temporomandibular joint disorder Surgical History (Updated 10/26/22 @ 09:43 by Jose Francisco Alas, ) H/O angioplasty SFA x 2, 2018 and 2019 H/O breast reconstruction H/O foot surgery LEFT FOOT NEEDLE REMOVED H/O hemorrhoidectomy H/O mastectomy LEFT History of arthroscopy right knee History of cardiac cath 09/2019 (NO STENTS) History of cataract surgery RT/LEFT History of colonoscopy History of esophagogastroduodenoscopy (EGD) History of hysterectomy History of laparoscopy HISTORY OF ECTOPIC X2 History of tonsillectomy History of tooth extraction S/P colon resection (10/24/22) p Open Sigmoid Colon Resection(Not Applicable) - Jj Nick MD, FACS s Laparoscopic Assisted to(Not Applicable) - Jj Nick MD, FACS Status post replacement of left shoulder joint (07/2020) Family History Mother Diabetes Depression Metastatic neoplastic disease Cancer Hypertension Father Depression Cardiac disorder Myelodysplasia (myelodysplastic syndrome) Cancer Other No family history of adverse response to anesthesia Denies family history of Ovarian cancer Breast cancer Colorectal cancer Uterine cancer Social History Smoking Status: Former smoker Tobacco Type: Cigarettes Age Started Using Tobacco: 19; Age Quit Using Tobacco: 24; packs per day: 0.5; Second Hand Exposure: Yes ( A CHILD); Hx Alcohol Use: Yes Alcohol type: wine Alcohol Intake Frequency: 4 or More x per/Week Hx Substance Use: No Preferred Language: Khmer Communication Ability: Effective Visual Impairment: No Limitations Hearing Ability: Normal Lathe Hand Required: No Beliefs That Will Affect Care: None marital status: Current Living Situation: Spouse current occupational status: retired current occupation: used to own clothing stores Feels Safe at Home: Yes Childhood Exposure to Second-Hand Smoke: Yes Dental Care, Regularly: Yes Physical Activity Frequency: 1-2 Times per Week Seatbelt Use: always Sunscreen Use: Yes Assistive Devices: None Review of Systems Review of Systems: Denies current fever, chills, headache, changes in vision, hearing, taste, and smell, chest pain, SOB, cough, nausea, vomiting, diarrhea, hematemesis, melena, dysuria, hematuria, and recent falls. All systems have been reviewed and are otherwise negative. Physical Exam Physical Exam: Physical Exam: General: In no acute distress, stated age, well-nourished, good hygiene2, non-toxic appearing HEENT: Normocephalic, atraumatic, no scleral icterus, pupils around round, symmetrical, and reactive to light, moist mucus membranes, trachea midline, no thyromegaly Chest/Pulm: No respiratory distress, symmetrical chest expansion, clear breath sounds throughout Cardiac: tachycardic rate, regular rhythm, no murmurs noted Abdomen: Nondistended, Patient with surgical site currently bandaged with a small amount of bloody drainage and drain in place, hypoactive bowel sounds, soft and tender over the surgical site, Musculoskeletal: Symmetrical and without signs of acute trauma, upper and lower extremities with full ROM, no atrophy, spasticity, or flaccidity Extremities: Radial, dorsalis pedis, and posterior tibial pulses are intact and symmetrical, no edema noted in the BL LE's Skin: Warm, dry, no rashes , lesions, or scars noted Neuro: Alert and oriented to person, place, month, year, and president, no focal defects,no tremors noted Psych: No acute distress, calm and cooperative during the exam Results & Data Results & Data ([facility]) Vital Signs (Past 12 Hours) Vital Signs Temp Pulse Pulse Pulse Resp BP Pulse Ox 10/24/22 15:58 36.6 C 113 H 18 91/61 L 95 10/24/22 14:58 36.7 C 111 H 17 100/68 96 10/24/22 14:54 36.7 C 115 H 17 84/57 L 96 10/24/22 14:52 36.7 C 129 H 18 71/49 L 97 10/24/22 14:19 36.6 C 109 H 18 122/75 97 10/24/22 13:35 36.7 C 102 H 16 144/83 H 97 10/24/22 13:25 102 H 26 H 144/78 H 97 10/24/22 13:15 93 H 13 139/79 99 10/24/22 13:05 96 H 18 127/89 96 10/24/22 12:55 91 H 15 139/88 92 10/24/22 12:45 88 14 164/80 H 98 10/24/22 12:35 83 13 162/79 H 98 10/24/22 12:27 36.3 C L 85 16 146/103 H 100 10/24/22 06:26 36.6 C 79 20 134/88 96 O2 Del Method O2 Flow Rate 10/24/22 15:58 Nasal Cannula 2 10/24/22 14:58 Room Air 10/24/22 14:54 Room Air 10/24/22 14:52 Room Air 10/24/22 14:19 Nasal Cannula 2 10/24/22 13:35 Nasal Cannula 2 10/24/22 13:25 Nasal Cannula 2 10/24/22 13:15 Nasal Cannula 2 10/24/22 13:05 Nasal Cannula 2 10/24/22 12:55 Room Air 10/24/22 12:45 Room Air 10/24/22 12:35 Oxymask 5 10/24/22 12:27 Oxymask 5 10/24/22 06:26 Room Air ECG Additional Comments: Obtaining STAT ECG at the time of the consult PG Care Time/CCT Total # of Minutes Spent Total Time Spent with Patient: Total time spent is greater than 50% in coordination of care (as documented) at patient's floor/unit and/or counseling patient: Coding [place] [address] IN/OBS CONSULT LVL 3,45M Patient Type Established Medical Decision Making High Complexity Diagnoses S/P partial resection of colon Z90.49 Postoperative hypotension I95.81 Tachycardia R00.0 Depression F33.9 Active/Remission status: remission status unspecified Depression Type: major depressive disorder Major depression recurrence: recurrent Hypothyroidism E03.9 Hypothyroidism type: unspecified PAD (peripheral artery disease) I73.9 Hyperlipidemia E78.5 Hyperlipidemia type: unspecified Hypertension I10 Hypertension type: essential hypertension Restless leg syndrome G25.81 (4) Depression Active/Remission status: remission status unspecified Depression Type: major depressive disorder Major depression recurrence: recurrent Qualified Code(s): F33.9 - Major depressive disorder, recurrent, unspecified (5) Hypothyroidism Hypothyroidism type: unspecified Qualified Code(s): E03.9 - Hypothyroidism, unspecified (7) Hyperlipidemia Hyperlipidemia type: unspecified Qualified Code(s): E78.5 - Hyperlipidemia, unspecified (8) Hypertension Hypertension type: essential hypertension Qualified Code(s): I10 - Essential (primary) hypertension
[2022-10-24] MEDS: GABAPENTIN 800 MG TAB PO SCH ×2 (16:43→20:46)
[2022-10-24] MEDS ORDERED: SODIUM CHLORIDE 0.9% 1000ML 1,000 ML IV ONE (17:02)
[2022-10-24 17:04] LABS: Hematocrit (blood only) 48.1 % (37.0-47.0); Hemoglobin 15.7 g/dl (12.0-16.0); Mean Corpuscular Hemoglobin 32.8 pg (25.0-34.0); Mean Corpuscular Hgb Conc 32.6 g/dL (32.0-36.0); Mean Corpuscular Volume 100.6 fL (80.0-100.0); Mean Platelet Volume 9.3 fL (9.4-12.4); Platelet Count 405 K/uL (130-400); RDW Coefficient of Variation 15.8 % (11.5-14.5); Red Blood Count 4.78 M/uL (4.20-5.40); White Blood Count 26.95 K/ul (4.8-10.8)
[2022-10-24 17:21] LABS: Basophils # (auto) 0.12 K/uL (0-0.2); Basophils % (auto) 0.4 %; Eosinophils # (auto) 0.01 K/uL (0-0.50); Immature Granulocytes # (auto) 0.25 K/uL (0.01-0.20); Immature Granulocytes % (auto) 0.9 %; Lymphocytes # (auto) 0.89 K/uL (1.2-3.4); Lymphocytes % (auto) 3.3 %; Monocytes # (auto) 2.16 K/uL (0.11-0.59); Neutrophils # (auto) 23.52 K/uL (1.40-6.50); Neutrophils % (auto) 87.4 %
[2022-10-24 17:26] LABS: Albumin Globulin Ratio 2.1 (0.9-2); Albumin Level 3.9 gm/dl (3.4-5.0); BUN Creatinine Ratio 15.9 (10-20); Bilirubin,Total 1.1 mg/dl (0.2-1.0); Calcium 8.5 mg/dl (8.5-10.1); Creatinine Clr Calc Pharmacy 26.4 ml/min; Est GFR (Non-African American) 36.3 ml/min; Globulin 1.9 gm/dl (2.5-4.0); Potassium 4.7 mmol/L (3.5-5.1); Total Protein 5.8 gm/dl (6.0-8.3)
[2022-10-24 17:43] LABS: Troponin I High Sensitivity 64.7 pg/ml (0-14)
[2022-10-24] MEDS: HYDROmorphone INJ 0.5 MG/0.5 ML SYR IV PRN (18:01)
[2022-10-24] MEDS: PRAMIPEXOLE DIHYDROCHLO 0.25 MG TAB PO SCH (20:46)
[2022-10-25] MEDS: ACETAMINOPHEN 1,000 MG/100 ML VIAL IV SCH ×4 (00:12→22:30)
[2022-10-25] MEDS: D5W AND 1/2NSS + 20MEQ KCL 20 MEQ/1,000 ML BAG IV SCH ×4 (02:00→22:30)
[2022-10-25 02:32] LABS: Hematocrit (blood only) 38.9 % (37.0-47.0); Hemoglobin 12.7 g/dl (12.0-16.0)
[2022-10-25] MEDS: LEVOTHYROXINE SODIUM 88 MCG TABLET PO SCH (06:36)
[2022-10-25] MEDS: CLINDAMYCIN/D5W 600 MG/50 ML BAG IV SCH ×3 (06:36→21:34)
[2022-10-25] MEDS: HYDROmorphone INJ 0.5 MG/0.5 ML SYR IV PRN ×3 (06:43→22:32)
[2022-10-25 07:10] LABS: BUN Creatinine Ratio 15.9 (10-20); Calcium 7.6 mg/dl (8.5-10.1); Creatinine Clr Calc Pharmacy 27.6 ml/min; Est GFR (African American) 44.4 ml/min; Est GFR (Non-African American) 38.3 ml/min; Potassium 4.6 mmol/L (3.5-5.1)
[2022-10-25 07:22] LABS: Basophils # (auto) 0.03 K/uL (0-0.2); Basophils % (auto) 0.2 %; Eosinophils # (auto) 0.01 K/uL (0-0.50); Eosinophils % (auto) 0.1 %; Hematocrit (blood only) 39.6 % (37.0-47.0); Hemoglobin 12.9 g/dl (12.0-16.0); Immature Granulocytes % (auto) 1.1 %; Lymphocytes # (auto) 1.17 K/uL (1.2-3.4); Lymphocytes % (auto) 6.3 %; Mean Corpuscular Hemoglobin 32.7 pg (25.0-34.0); Mean Corpuscular Hgb Conc 32.6 g/dL (32.0-36.0); Mean Corpuscular Volume 100.3 fL (80.0-100.0); Mean Platelet Volume 10.1 fL (9.4-12.4); Monocytes # (auto) 1.46 K/uL (0.11-0.59); Monocytes % (auto) 7.9 %; Neutrophils # (auto) 15.63 K/uL (1.40-6.50); Neutrophils % (auto) 84.4 %; Platelet Count 293 K/uL (130-400); RDW Coefficient of Variation 16.1 % (11.5-14.5); RDW Standard Deviation 59.3 fL (36.4-46.3); Red Blood Count 3.95 M/uL (4.20-5.40)
--- NOTE | 2022-10-25 07:56 | Surgery Progress Note ---
Date of Service October 25, 2022 Assessment & Plan (1) S/P partial resection of colon: Plan: POD#1 lap assisted to open sigmoid colon resection Patient's vitals are currently stable with improvements in her blood pressure, she has received some fluid bolus's overnight Labs show WBC 18.5, Hbg 12.7, K 4.6, Cr 1.3 Busby output ~510cc, will plan to keep in place today for accurate I&Os Surgical dressings c/d/i, some bloody drainage to FILIBERTO site dressing (can change). FILIBERTO 150cc total since surgery-sangenous Pain is manageable on current medications Can consider start clear liquids today. Otherwise awaiting return of bowel function Activity and pulmonary toilet encouraged Appreciate hospitalists following along pt seen. doing well all things considered. drain with serosanguinous output. pain controlled keep busby for another day. ice chips only for now. Admission and Anticipated Discharge Date Admission Date: October 24, 2022 Subjective Patient reports feeling well. Pain is manageable on current regimen. Denies any nausea currently. Physical Exam Physical Exam: awake/alert, no acute distress Gastrointestinal (Abdomen): Inspection/Auscultation: + abdominal surgical incision (surgical dressings c/d/i, some bloody drainage on dressing surrounding FILIBERTO) and + abdominal surgical drain present (sangenous (150cc documented since OR)); abdomen not distended Percussion/Palpation: + abdomen tender (expected monalisa incisional discomfort to palpation) and abdomen soft Results & Data ([facility]) Vital Signs (Past 12 Hours) Vital Signs Temp Pulse Resp BP Pulse Ox O2 Del Method 10/25/22 06:16 37.1 C 88 16 117/63 95 Room Air 10/25/22 03:52 88 16 101/67 95 Room Air 10/25/22 02:15 87 16 99/66 L 94 Room Air 10/25/22 01:08 37.3 C 88 16 88/55 L 94 Room Air 10/25/22 00:11 36.7 C 88 14 89/59 L 92 Room Air 10/24/22 23:31 36.6 C 98 H 15 90/62 L 93 Room Air 10/24/22 22:27 102/67 10/24/22 22:23 36.6 C 98 H 18 90/62 L 95 Room Air 10/24/22 22:05 96/69 L 10/24/22 20:00 36.9 C 100 H 16 106/71 95 Room Air PG Care Time/CCT Total # of Minutes Spent Total Time Spent with Patient: Total time spent is greater than 50% in coordination of care (as documented) at patient's floor/unit and/or counseling patient: Coding Level of Care Code None Diagnoses S/P partial resection of colon Z90.49
[2022-10-25] MEDS: DULoxetine HCL 30 MG CAP PO SCH (09:00)
[2022-10-25] MEDS: GABAPENTIN 800 MG TAB PO SCH ×3 (09:00→19:54)
[2022-10-25] MEDS ORDERED: lisinopril 5 MG TAB PO SCH (09:00)
--- NOTE | 2022-10-25 11:33 | Electrocardiogram Report ---
Test Reason : Blood Pressure : / mmHG Vent. Rate : 101 BPM Atrial Rate : 101 BPM P-R Int : 164 ms QRS Dur : 068 ms QT Int : 354 ms P-R-T Axes : 057 -24 042 degrees QTc Int : 459 ms Sinus tachycardia Abnormal ECG When compared with ECG of 09-OCT-2022 11:57, Borderline criteria for Inferior infarct are now Present Confirmed by Blaine John ([id number]) on 10/25/2022 11:32:20 AM Referred By: Jj Nick Confirmed By:Dm John
--- NOTE | 2022-10-25 15:44 | Hospitalist Progress Note ---
Date of Service October 25, 2022 Assessment & Plan (1) S/P partial resection of colon: Plan: Due to recurrent diverticulitis. She has a postoperative ileus as expected. Currently n.p.o. with IV fluids. Surgical management. (2) Postoperative hypotension: Plan: Resolved. Lisinopril remains on hold. (3) Tachycardia: Plan: Resolved. Occurred postoperatively. We will follow (4) Depression: Plan: Continue cymbalta when taking p.o. (5) Hypothyroidism: Plan: Continue levothyroxine when taking p.o. (6) PAD (peripheral artery disease): Plan: Continue to hold Plavix and Xarelto until the primary team is comfortable with h er bleeding risk . SCDs for now as she has a history of previous blood clots (7) Hyperlipidemia: Plan: Continue statin when taking p.o. (8) Hypertension: Plan: Hold lisinopril with her recent hypotension . Will restart when taking p.o. (9) Restless leg syndrome: Plan: Continue Pramipexole and Gabapentin when taking p.o. (10) Acute kidney injury: Plan: Continue IV fluids. Monitor intake and output. Serial labs Plan Anticipate eventual discharge to home per primary service Admission and Anticipated Discharge Date Admission Date: October 24, 2022 Subjective Alert and oriented. No acute distress. She remains n.p.o. at the time of my rounds earlier today. She is on IV fluids. Creatinine is slightly elevated from her baseline and will be followed. White blood cell count is trending down. She has a postoperative ileus as expected which eventually will resolve. She is on intravenous clindamycin Review of Systems Review of Systems: Constitutional-no fever or chills ENT-no blurred vision, no double vision, no epistaxis, no sore throat Respiratory-no cough, no wheezing, no shortness of breath Cardiac-no palpitations, no chest pain, no syncope GI-no nausea, vomiting, diarrhea, melena, hematochezia. She is n.p.o. postoperatively due to ileus from the surgery -no urinary retention, no urinary incontinence, no dysuria, no hematuria Musculoskeletal-no joint pain, no muscle tenderness Skin-no bruising, no rashes, no pruritus Neuro-no isolated weakness, no paresthesia, no weakness Psych-no depression, no anxiety Physical Exam Physical Exam: General-alert and oriented x3, no fevers, no chills HEENT-head atraumatic and normocephalic, pupils equal and reactive to light, extraocular muscles intact Neck-no lymphadenopathy or thyromegaly, trachea midline Chest-clear to auscultation percussion. No rales wheezing or rhonchi Cardiac-regular rate and rhythm, normal S1 and S2 Abdomen-absent bowel sounds postoperatively. Tenderness at the surgical site as expected. No significant distention Extremities-no cyanosis, clubbing, or edema Neuro-cranial nerves II through XII intact, motor and sensory function within normal limits, strength symmetrical, no focal deficits Psych-normal affect, normal mood Results & Data Results & Data ([facility]) Vital Signs (Past 12 Hours) Vital Signs Temp Pulse Pulse Resp BP Pulse Ox O2 Del Method 10/25/22 14:27 37.6 C H 94 H 16 125/74 94 Room Air 10/25/22 11:36 36.9 C 88 112/64 96 Room Air 10/25/22 09:00 Room Air 10/25/22 08:08 36.7 C 90 14 110/64 95 Room Air 10/25/22 06:16 37.1 C 88 16 117/63 95 Room Air 10/25/22 03:52 88 16 101/67 95 Room Air Laboratory Results 10/25/22 06:14 10/25/22 06:14 PG Care Time/CCT Total # of Minutes Spent Total Time Spent with Patient: Total time spent is greater than 50% in coordination of care (as documented) at patient's floor/unit and/or counseling patient: Coding Level of Care Code 43287 SUB INP/OBS CARE 3/50MIN Diagnoses S/P partial resection of colon Z90.49 Postoperative hypotension I95.81 Tachycardia R00.0 Depression F33.9 Depression Type: major depressive disorder Major depression recurrence: recurrent Active/Remission status: remission status unspecified Hypothyroidism E03.9 Hypothyroidism type: unspecified PAD (peripheral artery disease) I73.9 Hyperlipidemia E78.5 Hyperlipidemia type: unspecified Hypertension I10 Hypertension type: essential hypertension Restless leg syndrome G25.81 Acute kidney injury N17.9 (4) Depression Depression Type: major depressive disorder Major depression recurrence: recurrent Active/Remission status: remission status unspecified Qualified Code(s): F33.9 - Major depressive disorder, recurrent, unspecified (5) Hypothyroidism Hypothyroidism type: unspecified Qualified Code(s): E03.9 - Hypothyroidism, unspecified (7) Hyperlipidemia Hyperlipidemia type: unspecified Qualified Code(s): E78.5 - Hyperlipidemia, unspecified (8) Hypertension Hypertension type: essential hypertension Qualified Code(s): I10 - Essential (primary) hypertension
[2022-10-25] MEDS: PRAMIPEXOLE DIHYDROCHLO 0.25 MG TAB PO SCH (19:54)
[2022-10-26] MEDS: HYDROmorphone INJ 0.5 MG/0.5 ML SYR IV PRN ×2 (03:28→11:45)
[2022-10-26] MEDS: CLINDAMYCIN/D5W 600 MG/50 ML BAG IV SCH (06:01)
[2022-10-26] MEDS: D5W AND 1/2NSS + 20MEQ KCL 20 MEQ/1,000 ML BAG IV SCH ×2 (06:01→15:06)
[2022-10-26] MEDS: LEVOTHYROXINE SODIUM 88 MCG TABLET PO SCH (06:01)
[2022-10-26] MEDS: ACETAMINOPHEN 1,000 MG/100 ML VIAL IV SCH (06:44)
[2022-10-26] MEDS: DULoxetine HCL 30 MG CAP PO SCH (08:55)
[2022-10-26] MEDS: GABAPENTIN 800 MG TAB PO SCH ×3 (08:55→19:34)
[2022-10-26] MEDS ORDERED: ROSUVASTATIN CALCIUM 5 MG TAB PO SCH (09:00)
[2022-10-26 09:10] LABS: Basophils # (auto) 0.03 K/uL (0-0.2); Basophils % (auto) 0.2 %; Eosinophils # (auto) 0.09 K/uL (0-0.50); Eosinophils % (auto) 0.7 %; Hematocrit (blood only) 35.7 % (37.0-47.0); Hemoglobin 11.6 g/dl (12.0-16.0); Immature Granulocytes % (auto) 0.8 %; Lymphocytes # (auto) 0.96 K/uL (1.2-3.4); Lymphocytes % (auto) 7.5 %; Mean Corpuscular Hgb Conc 32.5 g/dL (32.0-36.0); Mean Corpuscular Volume 101.7 fL (80.0-100.0); Mean Platelet Volume 9.6 fL (9.4-12.4); Monocytes # (auto) 0.85 K/uL (0.11-0.59); Monocytes % (auto) 6.6 %; Neutrophils # (auto) 10.84 K/uL (1.40-6.50); Neutrophils % (auto) 84.2 %; Platelet Count 247 K/uL (130-400); RDW Coefficient of Variation 16.2 % (11.5-14.5); RDW Standard Deviation 60.9 fL (36.4-46.3); Red Blood Count 3.51 M/uL (4.20-5.40); White Blood Count 12.87 K/ul (4.8-10.8)
--- NOTE | 2022-10-26 09:44 | Surgery Progress Note ---
Date of Service October 26, 2022 Assessment & Plan (1) S/P colon resection: Plan: Postoperative day 2 Doing as expected. We will remove Abarca catheter today. Her bowels are moving and her drain looks good so we will initiate some clear liquids. Continue to slowly increase activity. Admission and Anticipated Discharge Date Admission Date: October 25, 2022 Subjective Patient seen. She is having some expected incisional pain but this is manageable. She is upset because she had about 4 liquid stools through the night causing a mass in her bed. Denies nausea. Physical Exam Physical Exam: Alert. No acute distress FILIBERTO drain with small amount of serous fluid Dressing clean and dry Results & Data ([facility]) Vital Signs (Past 12 Hours) Vital Signs Temp Pulse Pulse Resp BP Pulse Ox O2 Del Method 10/26/22 08:30 86 16 94 Room Air 10/26/22 07:09 36.7 C 86 16 131/73 92 Room Air PG Care Time/CCT Total # of Minutes Spent Total Time Spent with Patient: Total time spent is greater than 50% in coordination of care (as documented) at patient's floor/unit and/or counseling patient: Coding Level of Care Code 60438 Post Operative Follow-Up Diagnoses S/P colon resection Z90.49
[2022-10-26 09:47] LABS: BUN Creatinine Ratio 9.6 (10-20); Calcium 7.8 mg/dl (8.5-10.1); Creatinine Clr Calc Pharmacy 38.8 ml/min; Est GFR (African American) 66.9 ml/min; Est GFR (Non-African American) 57.7 ml/min; Potassium 4.5 mmol/L (3.5-5.1)
--- NOTE | 2022-10-26 12:00 | Hospitalist Progress Note ---
Date of Service October 26, 2022 Assessment & Plan (1) S/P partial resection of colon: Plan: Due to recurrent diverticulitis. Postoperative day #2. She is now on clear liquids. IV fluids have been tapered down. Abarca catheter removed today. Surgical management. Start physical therapy (2) Postoperative hypotension: Plan: Resolved. Lisinopril remains on hold. (3) Tachycardia: Plan: Resolved. Occurred postoperatively. We will follow (4) Depression: Plan: Continue cymbalta (5) Hypothyroidism: Plan: Continue levothyroxine (6) PAD (peripheral artery disease): Plan: Continue to hold Plavix and Xarelto until the primary team is comfortable with her bleeding risk . SCDs for now as she has a history of previous blood clots (7) Hyperlipidemia: Plan: Continue statin (8) Hypertension: Plan: Hold lisinopril with her recent hypotension . Will restart later this admission or discharge (9) Restless leg syndrome: Plan: Continue Pramipexole and Gabapentin (10) Acute kidney injury: Plan: Resolved with IV fluids. Monitor intake and output. Serial labs Plan Anticipate eventual discharge to home per primary service Admission and Anticipated Discharge Date Admission Date: October 25, 2022 Subjective Alert and oriented. No acute distress. Son is at the bedside. Case discussed with surgery. She is now on clear liquids and IV fluids taper down. Abarca catheter was removed today. We will start physical therapy Review of Systems Review of Systems: Constitutional-no fever or chills ENT-no blurred vision, no double vision, no epistaxis, no sore throat Respiratory-no cough, no wheezing, no shortness of breath Cardiac-no palpitations, no chest pain, no syncope GI-no nausea, vomiting, melena, hematochezia. She is now on clear liquids and bowel sounds are present. She is having some loose stools -no urinary retention, no urinary incontinence, no dysuria, no hematuria Musculoskeletal-no joint pain, no muscle tenderness Skin-no bruising, no rashes, no pruritus Neuro-no isolated weakness, no paresthesia, no weakness Psych-no depression, no anxiety Physical Exam Physical Exam: General-alert and oriented x3, no fevers, no chills HEENT-head atraumatic and normocephalic, pupils equal and reactive to light, extraocular muscles intact Neck-no lymphadenopathy or thyromegaly, trachea midline Chest-clear to auscultation percussion. No rales wheezing or rhonchi Cardiac-regular rate and rhythm, normal S1 and S2 Abdomen-absent bowel sounds postoperatively. Tenderness at the surgical site as expected. No significant distention Extremities-no cyanosis, clubbing, or edema Neuro-cranial nerves II through XII intact, motor and sensory function within normal limits, strength symmetrical, no focal deficits Psych-normal affect, normal mood Results & Data Results & Data ([facility]) Vital Signs (Past 12 Hours) Vital Signs Temp Pulse Pulse Resp BP Pulse Ox O2 Del Method 10/26/22 08:30 86 16 94 Room Air 10/26/22 07:09 36.7 C 86 16 131/73 92 Room Air Laboratory Results 10/26/22 08:49 10/26/22 08:49 PG Care Time/CCT Total # of Minutes Spent Total Time Spent with Patient: Total time spent is greater than 50% in coordination of care (as documented) at patient's floor/unit and/or counseling patient: Coding Level of Care Code 53923 SUB INP/OBS CARE 3/50MIN Diagnoses S/P partial resection of colon Z90.49 Postoperative hypotension I95.81 Tachycardia R00.0 Depression F33.9 Depression Type: major depressive disorder Major depression recurrence: recurrent Active/Remission status: remission status unspecified Hypothyroidism E03.9 Hypothyroidism type: unspecified PAD (peripheral artery disease) I73.9 Hyperlipidemia E78.5 Hyperlipidemia type: unspecified Hypertension I10 Hypertension type: essential hypertension Restless leg syndrome G25.81 Acute kidney injury N17.9 (4) Depression Depression Type: major depressive disorder Major depression recurrence: recurrent Active/Remission status: remission status unspecified Qualified Code(s): F33.9 - Major depressive disorder, recurrent, unspecified (5) Hypothyroidism Hypothyroidism type: unspecified Qualified Code(s): E03.9 - Hypothyroidism, unspecified (7) Hyperlipidemia Hyperlipidemia type: unspecified Qualified Code(s): E78.5 - Hyperlipidemia, unspecified (8) Hypertension Hypertension type: essential hypertension Qualified Code(s): I10 - Essential (primary) hypertension
[2022-10-26] MEDS ORDERED: COUGH DROP (SUGAR FREE) LOZ 24 LOZ/1 BOX BUCCAL ONE (14:44)
[2022-10-26] MEDS ORDERED: ACETAMINOPHEN 325 MG TAB PO PRN (15:01)
[2022-10-26] MEDS: HYDROCODONE/ACETAMOPHEN 5/325MG TAB PO PRN ×2 (15:07→19:35)
[2022-10-26] MEDS: PRAMIPEXOLE DIHYDROCHLO 0.25 MG TAB PO SCH (19:35)
[2022-10-26] MEDS: HEPARIN SOD 5,000 UNIT/0.5 ML VIAL SQ SCH (19:35)
[2022-10-26] MEDS: ONDANSETRON INJ 2 MG/ML 2 ML VIAL IV PRN (21:00)
[2022-10-27] MEDS: D5W AND 1/2NSS + 20MEQ KCL 20 MEQ/1,000 ML BAG IV SCH (05:29)
[2022-10-27] MEDS: HYDROCODONE/ACETAMOPHEN 5/325MG TAB PO PRN ×4 (05:30→20:17)
[2022-10-27] MEDS: LEVOTHYROXINE SODIUM 88 MCG TABLET PO SCH (05:30)
[2022-10-27] MEDS: ONDANSETRON INJ 2 MG/ML 2 ML VIAL IV PRN (06:12)
[2022-10-27] MEDS: GABAPENTIN 800 MG TAB PO SCH ×3 (07:55→20:01)
[2022-10-27] MEDS: HEPARIN SOD 5,000 UNIT/0.5 ML VIAL SQ SCH ×2 (07:55→20:01)
[2022-10-27] MEDS: DULoxetine HCL 30 MG CAP PO SCH (07:55)
[2022-10-27 08:41] LABS: Basophils # (auto) 0.03 K/uL (0-0.2); Basophils % (auto) 0.3 %; Eosinophils # (auto) 0.13 K/uL (0-0.50); Eosinophils % (auto) 1.2 %; Hematocrit (blood only) 32.1 % (37.0-47.0); Hemoglobin 10.9 g/dl (12.0-16.0); Immature Granulocytes # (auto) 0.12 K/uL (0.01-0.20); Immature Granulocytes % (auto) 1.1 %; Lymphocytes % (auto) 8.6 %; Mean Corpuscular Hemoglobin 33.3 pg (25.0-34.0); Mean Corpuscular Volume 98.2 fL (80.0-100.0); Mean Platelet Volume 9.8 fL (9.4-12.4); Monocytes # (auto) 0.73 K/uL (0.11-0.59); Neutrophils # (auto) 8.58 K/uL (1.40-6.50); Neutrophils % (auto) 81.8 %; Platelet Count 216 K/uL (130-400); RDW Coefficient of Variation 15.7 % (11.5-14.5); RDW Standard Deviation 56.4 fL (36.4-46.3); Red Blood Count 3.27 M/uL (4.20-5.40); White Blood Count 10.49 K/ul (4.8-10.8)
[2022-10-27 08:55] LABS: Calcium 8.6 mg/dl (8.5-10.1); Creatinine Clr Calc Pharmacy 48.7 ml/min; Est GFR (African American) 87.9 ml/min; Est GFR (Non-African American) 75.8 ml/min; Potassium 4.4 mmol/L (3.5-5.1)
[2022-10-27] MEDS ORDERED: HYDROmorphone INJ 0.5 MG/0.5 ML SYR IV PRN (09:25)
--- NOTE | 2022-10-27 09:29 | Surgery Progress Note ---
Date of Service October 27, 2022 Assessment & Plan (1) S/P colon resection: Plan: Overall she is doing well. We will advance her to a full liquid diet. We will continue subcu heparin though we will monitor her H&H. Admission and Anticipated Discharge Date Admission Date: October 25, 2022 Subjective Patient seen. Continues to have loose bowel movements but otherwise is doing okay. No nausea. She is tolerating clear liquids. Physical Exam Physical Exam: Alert. No acute distress Abdomen is soft. Her incisions all look good with no sign of infection. FILIBERTO drain with serosanguineous output. Results & Data ([facility]) Vital Signs (Past 12 Hours) Vital Signs Temp Pulse Resp BP Pulse Ox O2 Del Method 10/27/22 08:05 82 95 Room Air 10/27/22 07:06 36.6 C 81 16 163/81 H 93 Room Air PG Care Time/CCT Total # of Minutes Spent Total Time Spent with Patient: Total time spent is greater than 50% in coordination of care (as documented) at patient's floor/unit and/or counseling patient: Coding Level of Care Code 83718 Post Operative Follow-Up Diagnoses S/P colon resection Z90.49
[2022-10-27] MEDS: lisinopril 5 MG TAB PO SCH (10:42)
--- NOTE | 2022-10-27 12:16 | Hospitalist Progress Note ---
Date of Service October 27, 2022 Assessment & Plan (1) S/P partial resection of colon: Plan: Due to recurrent diverticulitis. Postoperative day #3. We will defer advancing diet and discontinue IV fluids to primary service. Surgical management. Continue physical therapy (2) Postoperative hypotension: Plan: Resolved. Lisinopril restarted today, October 27 (3) Tachycardia: Plan: Resolved. Occurred postoperatively. (4) Depression: Plan: Continue cymbalta (5) Hypothyroidism: Plan: Continue levothyroxine (6) PAD (peripheral artery disease): Plan: Continue to hold Xarelto until the primary team is comfortable with her bleeding risk . Will restart Plavix today, October 27 if it has not already been restarted. SCDs for now as she has a history of previous blood clots (7) Hyperlipidemia: Plan: Continue statin (8) Hypertension: Plan: Hold lisinopril with her recent hypotension . Will restart later this admission or discharge (9) Restless leg syndrome: Plan: Continue Pramipexole and Gabapentin (10) Acute kidney injury: Plan: Resolved with IV fluids. Monitor intake and output. Serial labs Plan Anticipate eventual discharge to home per primary service Admission and Anticipated Discharge Date Admission Date: October 25, 2022 Subjective Alert and oriented. Lisinopril restarted today, October 27 for blood pressure control. She continues to have occasional loose stools. Will defer advancing diet and discontinuing IV to the primary service. Postoperative day #3. Looks like she will be discharged to home soon Review of Systems Review of Systems: Constitutional-no fever or chills ENT-no blurred vision, no double vision, no epistaxis, no sore throat Respiratory-no cough, no wheezing, no shortness of breath Cardiac-no palpitations, no chest pain, no syncope GI-no nausea, vomiting, melena, hematochezia. She is now on clear liquids and bowel sounds are present. She is having some loose stools -no urinary retention, no urinary incontinence, no dysuria, no hematuria Musculoskeletal-no joint pain, no muscle tenderness Skin-no bruising, no rashes, no pruritus Neuro-no isolated weakness, no paresthesia, no weakness Psych-no depression, no anxiety Physical Exam Physical Exam: General-alert and oriented x3, no fevers, no chills HEENT-head atraumatic and normocephalic, pupils equal and reactive to light, extraocular muscles intact Neck-no lymphadenopathy or thyromegaly, trachea midline Chest-clear to auscultation percussion. No rales wheezing or rhonchi Cardiac-regular rate and rhythm, normal S1 and S2 Abdomen-absent bowel sounds postoperatively. Tenderness at the surgical site as expected. No significant distention Extremities-no cyanosis, clubbing, or edema Neuro-cranial nerves II through XII intact, motor and sensory function within normal limits, strength symmetrical, no focal deficits Psych-normal affect, normal mood Results & Data Results & Data ([facility]) Vital Signs (Past 12 Hours) Vital Signs Temp Pulse Resp BP Pulse Ox O2 Del Method 10/27/22 08:05 82 95 Room Air 10/27/22 07:06 36.6 C 81 16 163/81 H 93 Room Air Laboratory Results 10/27/22 08:01 10/27/22 08:01 PG Care Time/CCT Total # of Minutes Spent Total Time Spent with Patient: Total time spent is greater than 50% in coordination of care (as documented) at patient's floor/unit and/or counseling patient: Coding Level of Care Code 73277 SUB INP/OBS CARE 2/35MIN Diagnoses S/P partial resection of colon Z90.49 Postoperative hypotension I95.81 Tachycardia R00.0 Depression F33.9 Depression Type: major depressive disorder Major depression recurrence: recurrent Active/Remission status: remission status unspecified Hypothyroidism E03.9 Hypothyroidism type: unspecified PAD (peripheral artery disease) I73.9 Hyperlipidemia E78.5 Hyperlipidemia type: unspecified Hypertension I10 Hypertension type: essential hypertension Restless leg syndrome G25.81 Acute kidney injury N17.9 (4) Depression Depression Type: major depressive disorder Major depression recurrence: recurrent Active/Remission status: remission status unspecified Qualified Code(s): F33.9 - Major depressive disorder, recurrent, unspecified (5) Hypothyroidism Hypothyroidism type: unspecified Qualified Code(s): E03.9 - Hypothyroidism, unspecified (7) Hyperlipidemia Hyperlipidemia type: unspecified Qualified Code(s): E78.5 - Hyperlipidemia, unspecified (8) Hypertension Hypertension type: essential hypertension Qualified Code(s): I10 - Essential (primary) hypertension
[2022-10-27] MEDS: CLOPIDOGREL BISULFATE 75 MG TAB PO SCH (12:51)
[2022-10-27] MEDS: PRAMIPEXOLE DIHYDROCHLO 0.25 MG TAB PO SCH (20:01)
[2022-10-28] MEDS: LEVOTHYROXINE SODIUM 88 MCG TABLET PO SCH (05:26)
[2022-10-28] MEDS: HYDROCODONE/ACETAMOPHEN 5/325MG TAB PO PRN ×4 (05:27→21:32)
[2022-10-28 07:05] LABS: Basophils # (auto) 0.04 K/uL (0-0.2); Basophils % (auto) 0.5 %; Eosinophils # (auto) 0.25 K/uL (0-0.50); Eosinophils % (auto) 3.1 %; Hematocrit (blood only) 33.7 % (37.0-47.0); Hemoglobin 11.2 g/dl (12.0-16.0); Immature Granulocytes # (auto) 0.16 K/uL (0.01-0.20); Lymphocytes # (auto) 1.09 K/uL (1.2-3.4); Lymphocytes % (auto) 13.7 %; Mean Corpuscular Hemoglobin 32.8 pg (25.0-34.0); Mean Corpuscular Hgb Conc 33.2 g/dL (32.0-36.0); Mean Corpuscular Volume 98.8 fL (80.0-100.0); Mean Platelet Volume 9.7 fL (9.4-12.4); Monocytes % (auto) 7.5 %; Neutrophils # (auto) 5.82 K/uL (1.40-6.50); Neutrophils % (auto) 73.2 %; Nucleated RBC # (auto) 0.02 K/uL (0-0.12); Nucleated RBC % (auto) 0.3 %; Platelet Count 238 K/uL (130-400); RDW Coefficient of Variation 15.6 % (11.5-14.5); Red Blood Count 3.41 M/uL (4.20-5.40); White Blood Count 7.96 K/ul (4.8-10.8)
[2022-10-28 07:26] LABS: BUN Creatinine Ratio 7.9 (10-20); Calcium 9.2 mg/dl (8.5-10.1); Est GFR (African American) 71.4 ml/min; Est GFR (Non-African American) 61.6 ml/min; Potassium 4.7 mmol/L (3.5-5.1)
--- NOTE | 2022-10-28 07:47 | Surgery Progress Note ---
Date of Service October 28, 2022 Assessment & Plan (1) S/P colon resection: Plan: POD#4 sigmoid colon resection WBC 7.9, Hbg 11.2, Vital signs are stable Incisions c/d/i. [place] drain removed. will leave FILIBERTO in for today (serosang) She is tolerating full liquids, having liquid stools that are improving. Will advance to low fiber Current pain regimen is working for her Continue pulmonary toilet and OOB May shower today Appreciate hospitalists assistance with pt If continues to do well, may discharge as early as tomorrow Pt seen/examined with Dr. Nick Admission and Anticipated Discharge Date Admission Date: October 25, 2022 Supervising Physician Co-Signing Physician Notes I personally saw and examined the patient. I verified all flores points and agree with Nilton Hedrick PA-C with the following exceptions and/or additions: 77-year-old female postop day 0 elective open sigmoid colon resection. Medicine consulted for medical management. Low blood pressure and tachycardia postsurgery. She denies any dizziness while lying down in bed. She reports taking her lisinopril this morning. Patient seen after lactated Ringer bolus O/E A/P Subjective Patient is feeling pretty good overall. Her BM's are improving. Tolerating a full liquid diet. Complains of a headache over the wknd. Abdominal pain manageable. Physical Exam Physical Exam: awake/alert, no distress Respiratory: normal respiratory effort Gastrointestinal (Abdomen): Inspection/Auscultation: + abdominal surgical incision (c/d/i) and + abdominal surgical drain present (serosanguineous ); abdomen not distended Percussion/Palpation: + abdomen tender (some monalisa incisional discomfort to palpation) and abdomen soft Results & Data ([facility]) Vital Signs (Past 12 Hours) Vital Signs Temp Pulse Resp BP Pulse Ox O2 Del Method 10/27/22 20:51 36.8 C 71 18 147/73 H 95 Room Air PG Care Time/CCT Total # of Minutes Spent Total Time Spent with Patient: Total time spent is greater than 50% in coordination of care (as documented) at patient's floor/unit and/or counseling patient: Coding Level of Care Code 02651 Post Operative Follow-Up Diagnoses S/P colon resection Z90.49
[2022-10-28] MEDS: CLOPIDOGREL BISULFATE 75 MG TAB PO SCH (09:24)
[2022-10-28] MEDS: DULoxetine HCL 30 MG CAP PO SCH (09:24)
[2022-10-28] MEDS: GABAPENTIN 800 MG TAB PO SCH ×3 (09:24→21:26)
[2022-10-28] MEDS: HEPARIN SOD 5,000 UNIT/0.5 ML VIAL SQ SCH ×2 (09:24→21:26)
[2022-10-28] MEDS: lisinopril 5 MG TAB PO SCH (09:24)
[2022-10-28] MEDS: DULoxetine HCL 60 MG CAP PO SCH (11:39)
--- NOTE | 2022-10-28 16:19 | Hospitalist Progress Note ---
Date of Service October 28, 2022 Assessment & Plan (1) S/P partial resection of colon: Plan: Due to recurrent diverticulitis. Postoperative day #4. Surgical management. Continue physical therapy (2) Postoperative hypotension: Plan: Resolved. Lisinopril restarted today, October 27 (3) Tachycardia: Plan: Resolved. Occurred postoperatively. (4) Depression: Plan: Continue cymbalta (5) Hypothyroidism: Plan: Continue levothyroxine (6) PAD (peripheral artery disease): Plan: Continue to hold Xarelto until the primary team is comfortable with her bleeding risk . Will restart Plavix today, October 27 if it has not already been restarted. SCDs for now as she has a history of previous blood clots (7) Hyperlipidemia: Plan: Continue statin (8) Hypertension: Plan: resinitiated lisinopril. Patient appears to have white coat syndrome. New recommendations state this should be treated. Will place patient on low dose amlodipine at bedtime. will recommend to continue this post discharge. (9) Restless leg syndrome: Plan: Continue Pramipexole and Gabapentin (10) Acute kidney injury: Plan: Resolved with IV fluids. Monitor intake and output. Serial labs Plan Anticipate eventual discharge to home per primary service Medicine will sign off Admission and Anticipated Discharge Date Admission Date: October 25, 2022 Subjective Patient reports feeling well. Patient has no new complaints. Review of Systems Review of Systems: All systems reviewed & are unremarkable except as noted in HPI & below Physical Exam Physical Exam: General-alert and oriented x3, no fevers, no chills HEENT-head atraumatic and normocephalic, pupils equal and reactive to light, extraocular muscles intact Neck-no lymphadenopathy or thyromegaly, trachea midline Chest-clear to auscultation percussion. No rales wheezing or rhonchi Cardiac-regular rate and rhythm, normal S1 and S2 Abdomen-Tenderness at the surgical site as expected. No significant distention Extremities-no cyanosis, clubbing, or edema Neuro-cranial nerves II through XII intact, motor and sensory function within normal limits, strength symmetrical, no focal deficits Psych-normal affect, normal mood Results & Data Results & Data ([facility]) Vital Signs (Past 12 Hours) Vital Signs Temp Pulse Pulse Resp BP Pulse Ox O2 Del Method 10/28/22 15:53 36.6 C 84 18 175/90 H 95 Room Air 10/28/22 10:41 72 18 151/72 H 96 Room Air 10/28/22 09:36 74 178/93 H 10/28/22 08:06 36.8 C 64 16 192/97 H 97 Room Air PG Care Time/CCT Total # of Minutes Spent Total Time Spent with Patient: Total time spent is greater than 50% in coordination of care (as documented) at patient's floor/unit and/or counseling patient: Coding Level of Care Code 56103 SUB INP/OBS CARE 2/35MIN Diagnoses S/P partial resection of colon Z90.49 Postoperative hypotension I95.81 Tachycardia R00.0 Depression F33.9 Active/Remission status: remission status unspecified Depression Type: major depressive disorder Major depression recurrence: recurrent Hypothyroidism E03.9 Hypothyroidism type: unspecified PAD (peripheral artery disease) I73.9 Hyperlipidemia E78.5 Hyperlipidemia type: unspecified Hypertension I10 Hypertension type: essential hypertension Restless leg syndrome G25.81 Acute kidney injury N17.9 (4) Depression Active/Remission status: remission status unspecified Depression Type: major depressive disorder Major depression recurrence: recurrent Qualified Code(s): F33.9 - Major depressive disorder, recurrent, unspecified (5) Hypothyroidism Hypothyroidism type: unspecified Qualified Code(s): E03.9 - Hypothyroidism, unspecified (7) Hyperlipidemia Hyperlipidemia type: unspecified Qualified Code(s): E78.5 - Hyperlipidemia, unspecified (8) Hypertension Hypertension type: essential hypertension Qualified Code(s): I10 - Essential (primary) hypertension
[2022-10-28] MEDS ORDERED: amLODIPine BESYLATE 5 MG TAB PO SCH (21:00)
[2022-10-28] MEDS: PRAMIPEXOLE DIHYDROCHLO 0.25 MG TAB PO SCH (21:25)
[2022-10-29] MEDS: ONDANSETRON INJ 2 MG/ML 2 ML VIAL IV PRN (03:11)
[2022-10-29] MEDS: LEVOTHYROXINE SODIUM 88 MCG TABLET PO SCH (05:06)
--- NOTE | 2022-10-29 07:05 | Surgery Progress Note ---
Date of Service October 29, 2022 Assessment & Plan (1) S/P colon resection: Plan: POD#5 sigmoid colon resection Patient overall is doing well she tolerated a regular diet yesterday low fiber nature her bowel movements are loose as stated and she has no control but appears to be improving At this point the patient could be discharged she is sort of anxious about going home Activity on discharge was discussed with her she can go up steps she can shower we will leave the Rocky drain in for now if she does go home today we will see her back in the office on she can drive but do not take any prescription medicine for pain We will check on her later this morning or early afternoon and if so she can be discharged on oral analgesics low fiber diet POD#4 sigmoid colon resection WBC 7.9, Hbg 11.2, Vital signs are stable Incisions c/d/i. Flori drain removed. will leave FILIBERTO in for today (serosang) She is tolerating full liquids, having liquid stools that are improving. Will advance to low fiber Current pain regimen is working for her Continue pulmonary toilet and OOB May shower today Appreciate hospitalists assistance with pt If continues to do well, may discharge as early as tomorrow Pt seen/examined with Dr. Nick Admission and Anticipated Discharge Date Admission Date: October 25, 2022 Subjective 10/29/22 stating she did not sleep well last night for no real reason She states she has some diarrhea again but stating also that she had had that at home off-and-on prior to surgery Patient reports feeling well. Patient has no new complaints. Physical Exam Physical Exam: Initially asleep when I walked in but easily awoke oriented in no distress The abdomen is benign the dressing around the Rocky drain is bloodstained likely related to the anticoagulation the patient is receiving at this time the dr silverman itself is serous slightly sanguinous Results & Data ([facility]) Vital Signs (Past 12 Hours) Vital Signs Temp Pulse Resp BP Pulse Ox O2 Del Method 10/28/22 21:07 37.3 C 85 18 150/85 H 95 Room Air
[2022-10-29 08:02] LABS: Basophils # (auto) 0.06 K/uL (0-0.2); Basophils % (auto) 0.7 %; Eosinophils # (auto) 0.32 K/uL (0-0.50); Eosinophils % (auto) 3.6 %; Hematocrit (blood only) 34.3 % (37.0-47.0); Hemoglobin 11.7 g/dl (12.0-16.0); Immature Granulocytes # (auto) 0.35 K/uL (0.01-0.20); Immature Granulocytes % (auto) 3.9 %; Lymphocytes # (auto) 1.42 K/uL (1.2-3.4); Lymphocytes % (auto) 15.9 %; Mean Corpuscular Hemoglobin 33.1 pg (25.0-34.0); Mean Corpuscular Hgb Conc 34.1 g/dL (32.0-36.0); Mean Corpuscular Volume 96.9 fL (80.0-100.0); Mean Platelet Volume 9.7 fL (9.4-12.4); Monocytes # (auto) 0.89 K/uL (0.11-0.59); Neutrophils % (auto) 65.9 %; Nucleated RBC # (auto) 0.05 K/uL (0-0.12); Nucleated RBC % (auto) 0.6 %; Platelet Count 310 K/uL (130-400); RDW Coefficient of Variation 15.6 % (11.5-14.5); RDW Standard Deviation 55.4 fL (36.4-46.3); Red Blood Count 3.54 M/uL (4.20-5.40); White Blood Count 8.94 K/ul (4.8-10.8)
[2022-10-29 08:17] LABS: BUN Creatinine Ratio 9.8 (10-20); Calcium 9.5 mg/dl (8.5-10.1); Creatinine Clr Calc Pharmacy 39.7 ml/min; Est GFR (African American) 68.6 ml/min; Est GFR (Non-African American) 59.2 ml/min
[2022-10-29] MEDS: GABAPENTIN 800 MG TAB PO SCH (08:25)
[2022-10-29] MEDS: DULoxetine HCL 60 MG CAP PO SCH (08:26)
[2022-10-29] MEDS: DULoxetine HCL 30 MG CAP PO SCH (08:26)
[2022-10-29] MEDS: HEPARIN SOD 5,000 UNIT/0.5 ML VIAL SQ SCH (08:26)
[2022-10-29] MEDS: lisinopril 5 MG TAB PO SCH (08:26)
[2022-10-29] MEDS: CLOPIDOGREL BISULFATE 75 MG TAB PO SCH (08:26)
[2022-10-29] MEDS: HYDROCODONE/ACETAMOPHEN 5/325MG TAB PO PRN ×2 (08:30→13:22)
--- NOTE | 2022-11-12 13:53 | Discharge Summary ---
Date of Service October 29, 2022 Principal Diagnosis s/p colon resection Discharge Exam awake/alert, no distress Respiratory normal respiratory effort Gastrointestinal (Abdomen) Inspection/Auscultation: + abdominal surgical incision (c/d/i) and + abdominal surgical drain present (serosanguineous ); abdomen not distended Percussion/Palpation: + abdomen tender (some monalisa incisional discomfort to palpation) and abdomen soft Discharge Data Allergies Allergy/AdvReac Type Severity Reaction Status Date / Time Penicillins Allergy Intermediate Hives Verified 11/06/22 14:02 Sulfa (Sulfonamide Allergy Intermediate Hives Verified 11/06/22 14:02 Antibiotics) Consultations 10/24/22 16:00 Consult Hospitalist Routine Procedures Performed Operation Date: 10/24/22 07:00 Actual Procedures p Open Sigmoid Colon Resection(Not Applicable) - Jj Nick MD, FACS s Laparoscopic Assisted to(Not Applicable) - Jj Nick MD, FACS Hospital Course (1) S/P colon resection: This is a 77yF who presented to the [facility] on 2 for an elective lap assisted sigmoid colon resection for history of diverticulitis with Dr. Nick. The patient tolerated the procedure well, see op note for full details. The patient recovered in the PACU and was transferred to the med/surg unit in stable condition with prn pain medication, a busby catheter, and filiberto drain. POD#0 the patient had an episode of transient hypotension thought to be multi factorial, pain medication related vs taking her lisinopril the day of surgery, vs underresuscitation. The patient was bolused with IVF with improvement. The hospitalists were consulted during this time for assistance with medical management throughout her hospitalization. She was eventually stated on prophylactic subcutaneous heparin for DVT prophylaxis. The patient started having bowel function in the form of loose stools initially. As bowel function returned her diet was advanced as tolerated of which she tolerated well. She was able to void on her own once busby cather was removed. She ambulated the hallways independently. FILIBERTO drain remained serosang and remained in place upon discharge. RN provided drain education with her so she felt comfortable for home. On POD#5 the patient was deemed stable for discharge and was instructed to follow up in clinic with Dr. Nick in clinic within 1 week. Total Time Total Time Spent Total Time Spent (In Minutes): 15 Discharge Plan Discharge Items Patient Disposition: Home - Self-Care Reason For Visit: POST OP Discharge Diagnosis: sigmoid colon resection Activity: Per Instructions section Lifting: No more than 10 pounds Bathing Comment: may shower; no soaking in tubs/pools Exercise/Sports: Wait until after follow-up appointment Driving/Machine Use: no driving while taking any narcotics for pain Non-emergency contact: Surgeon Call non-emergency contact if: you have any medication questions, your symptoms worsen, your pain is not controlled, your pain is worsening, your pain is concerning for you, you have a fever, your temperature is above 101.5, your wound has increased redness, your wound has increased drainage and your wound pain has increased Follow-up/Referrals: Jj Nick MD, FACS [Surgeon] - 11/06/22 1:45 pm (Please call to schedule follow up in clinic within 1 week ) Nikia Parks MD [Primary Care Provider] - 11/05/22 9:00 am (WITH ADONAY CERVANTES) Diet: Low Fiber Addtl Attending Provider Instructions: Please continue on a low fiber diet until otherwise directed by the surgeon You have surgical curtis in place that will be removed at one of your follow up appointments Please care for your drain as you have been instructed prior to discharge from the hospital. Please follow up in clinic with Dr. Nick this upcoming 11/01/22 for removal Pending Studies at Discharge: Yes Stand-Alone Forms: My [facility], Pain - Opioid Pain Management, Smoking Cessation Medications and DC Order Prescriptions: Continued gabapentin 800 mg tablet 800 mg PO TID Qty: 270 3RF rosuvastatin 5 mg tablet 5 mg PO Q OTHER DAY Qty: 45 3RF diphenoxylate-atropine 2.5-0.025 mg tablet 1 tab PO QID PRN (Reason: diarrhea) Qty: 30 0RF Xarelto 2.5 mg tablet 2.5 mg PO BID Qty: 180 3RF pramipexole [Mirapex] 0.25 mg tablet 0.25 mg PO PM Qty: 90 3RF clotrimazole-betamethasone 1-0.05 % cream 1 applic topical BID PRN (Reason: Rash) Qty: 30 1RF hydrocodone-acetaminophen 5-325 mg tablet 1 tab PO QID PRN (Reason: pain) Qty: 120 0RF ergocalciferol (vitamin D2) [Vitamin D2] 1,250 mcg (50,000 unit) capsule 50,000 unit PO MONTHLY Qty: 12 1RF estradiol [Estrace] 0.01 % (0.1 mg/gram) cream 1 g PV .COMPLEX Qty: 42.5 5RF Rx Instructions: 1 g PV twice weekly; cyanocobalamin (vitamin B-12) [Vitamin B-12] 1,000 mcg Tablet 1,000 mcg PO WK Rx Instructions: TAKES ON MONDAYS clopidogrel 75 mg tablet 75 mg PO QAM Patient Comments: TAKES QAM levothyroxine 88 mcg tablet 88 mcg PO QAM Rx Instructions: TAKE ONE TABLET BY MOUTH DAILY lisinopril 5 mg tablet 5 mg PO QAM Patient Comments: TAKES QAM duloxetine 30 mg capsule,delayed release(DR/EC) 30 mg PO QAM Rx Instructions: Take together with 60 mg cap for TDD = 90 mg Discontinued metronidazole 500 mg tablet 500 mg PO .COMPLEX Qty: 3 0RF Rx Instructions: 500 mg PO The day before surgery take at 2:00 pm, 4:00 pm, and 10:00 pm.; No Action duloxetine [Cymbalta] 60 mg capsule,delayed release(DR/EC) 60 mg PO QAM Qty: 90 3RF ondansetron 4 mg tablet,disintegrating 4 mg PO Q6H PRN (Reason: nausea and vomiting) Qty: 30 0RF Discharge Orders: Discharge Order (Routine); Ordered 10/29/22 Ordered By: Cherelle Zaragoza/Other Patient Handouts: Brigido Smith Drain Tube Dc, Having Open Colon Surgery Admission Data Admit Date/Time: 10/25/22 15:30 Attending Provider: Jj Nick Admit Provider: Jj Nick Primary Care Provider: Nikia Parks Other Providers: Dinh Jones ; Mona Cornell ; Last Quach ; Parveen Jorge ; Genaro Kan ; Bakari Diez ; Efra Wright ; Lakeisha Tompkins ; Sophia Gurrola ; Porfirio Mart ; Rashel Goldsmith ; Iris Ramesh ; Orlando Garza ; Chencho Adamson ; Farideh Mcgowan ; Bernarda Vergara ; Lauren Flood ; Nilton Hedrick ; Manuela Lopez ; Mona Henriquez ; Srinath Ahumada ; Travis Cerrato ; Last Cortes ; Pari Jenkins ; Jona Roche ; Jefferson Stevenson ; Cristy Velarde ; Juan Manuel Mcdonough ; Kayla García ; Andrew Jaime ; Miranda Tran ; Ryan Rosales ; Herman Fried ; Cori Hooper ; Fausto Medrano ; Jennifer Maharaj Other Interventions: Discharge Summary Assessment (RN) Last Done: 10/29/22 15:27 Coding Level of Care Code 50763 IN/OBS DISCH 30 MIN/LESS Diagnoses S/P colon resection Z90.49
--- NOTE | 2022-11-13 07:06 | Coding Query ---
N PATHOLOGY To promote full compliance with coding requirements relating to patient care, physician participation is requested in all cases of procurement inspector uncertainty. Please assist us with the question(s) below: Please review the Pathology report and please document any relevant diagnosis(es) below. Discharge Summary documneted Colon Cancer. Thank you. KEIRY Fuentes [facility] Diagnosis(es): not sure where colon cancer was ever documented Pt had colon resection for sigmoid diverticular problems( that was documented) MTDD
== END 2022-10-29 16:29 | disposition home or self-care (01) | DRG 330 ==
LOC: 3N 05:26 → ASU 05:26